=== PATIENT | male | born 1950 | race Hispanic/Latino ===

== ENCOUNTER 2019-09-01 17:52 | Inpatient (IN) | payer MEDICARE, OTHER ==
[2019-09-01 18:34] LABS: Absolute Lymphocytes (CBC) 1.2 K/uL (0.7-4.9); Basophils % 0.9 % (0-1.3); Hematocrit 43.9 % (39.6-49.0); Lymphocytes % 20.9 % (15.3-44.8); MPV 10.3 fL (7.6-11.3); RBC Red Blood Cell Count 4.93 M/uL (4.33-5.43)
[2019-09-01 18:39] LABS: Protime INR 1.21
[2019-09-01 18:51] LABS: ALT/SGPT 42 U/L (12-78); AST/SGOT 29 U/L (15-37); Albumin 3.7 g/dL (3.4-5.0); Alkaline Phosphatase 108 U/L (45-117); BUN Blood Urea Nitrogen 23 mg/dL (7-18); Bicarbonate 26 mmol/L (21-32); Bilirubin Direct 0.4 mg/dL (0-0.2); Bilirubin Total 1.2 mg/dL (0.2-1.0); Glucose Level 151 mg/dL (74-106); Magnesium 2.2 mg/dL (1.8-2.4); NT PRO-BNP 6354 pg/mL (<125); Potassium 3.9 mmol/L (3.5-5.1); Protein, Total 7.2 g/dL (6.4-8.2); Sodium Level 141 mmol/L (136-145); Troponin (Emerg Dept Use Only) < 0.02 ng/mL (0.0-0.045)
--- NOTE | 2019-09-01 20:00 | RAD REPORT ---
EXAM DESCRIPTION: RAD - Chest Single View - 09/01/2019 6:36 pm CLINICAL HISTORY: Shortness of breath COMPARISON: None. TECHNIQUE: AP portable chest image was obtained 1826 hours . FINDINGS: No peripheral mass or consolidation. Cardiomegaly is present with vascular engorgement and prominent interstitial pattern. No measurable pleural effusion and no pneumothorax. No acute bony ab normality seen. No acute aortic findings suspected. IMPRESSION: Mild to moderate CHF/ volume overload pattern.
--- NOTE | 2019-09-01 20:08 | ER ---
Nurse's Notes [facility] Name: Easton Kelly Age: 68 yrs Sex: Male : 1950 Arrival Date: 09/01/2019 Time: 17:57 Bed 14 Private MD: Diagnosis: Unspecified combined systolic (congestive) and diastolic (congestive) heart failure Presentation: 09/01 18:03 Presenting complaint: Patient states: SOB x 1 year but got worse last night and started sv having chest pain, has been seeing his PCP but is getting no answers. Denies cough. Transition of care: patient was not received from another setting of care. Onset of symptoms was August 31, 2019. Risk Assessment: Do you want to hurt yourself or someone else? Patient reports no desire to harm self or others. Initial Sepsis Screen: Does the patient meet any 2 criteria? RR > 20 per min. No. Patient's initial sepsis screen is negative. Does the patient have a suspected source of infection? No. Patient's initial sepsis screen is negative. Care prior to arrival: None. 18:03 Method Of Arrival: Ambulatory sv 18:03 Acuity: NENA 2 sv Historical: - Allergies: 18:05 No Known Allergies; sv - PMHx: 18:05 Hypertension; sv - PSHx: 18:05 None; sv - Immunization history:: Flu vaccine is not up to date. - Social history:: Smoking status: Patient/guardian denies using tobacco. - Ebola Screening: : No symptoms or risks identified at this time. Screenin:30 Abuse screen: Denies threats or abuse. Denies injuries from another. Nutritional ca1 screening: No deficits noted. Tuberculosis screening: No symptoms or risk factors identified. Fall Risk IV access (20 points). Assessment: 18:30 General: Appears in no apparent distress. comfortable, Behavior is calm, cooperative, ca1 appropriate for age. Pain: Denies pain. Neuro: Level of Consciousness is awake, alert, obeys commands, Oriented to person, place, time, situation. Cardiovascular: Heart tones S1 S2 present Capillary refill < 3 seconds Patient's skin is warm and dry. Rhythm is sinus rhythm. Respiratory: Reports shortness of breath for a year now but has gotten worse last night Airway is patent Respiratory effort is even, unlabored, Respiratory pattern is regular, symmetrical, Breath sounds are clear bilaterally. GI: Abdomen is round non-distended, Bowel sounds present X 4 quads. Abd is soft and non tender X 4 quads. : No deficits noted. No signs and/or symptoms were reported regarding the genitourinary system. EENT: No deficits noted. No signs and/or symptoms were reported regarding the EENT system. Derm: Skin is intact, is healthy with good turgor, Skin is. Musculoskeletal: Circulation, motion, and sensation intact. Capillary refill < 3 seconds, Range of motion: intact in all extremities. 19:08 Reassessment: Patient appears in no apparent distress at this time. Patient and/or jb4 family updated on plan of care and expected duration. Pain level reassessed. Patient is alert, oriented x 3, equal unlabored respirations, skin warm/dry/pink. PT reports slight swelling to the left foot. Left foot does appear slightly larger than th right. Denies pain in the left foot. Pedal pulses 2+ bilaterally. Denies SOB currently and reports feeling better. 20:03 Reassessment: Patient appears in no apparent distress at this time. Patient and/or jb4 family updated on plan of care and expected duration. Pain level reassessed. PT appears to be having SOB, wheezing noted IMANI posterior lung heller and right anterior lung heller. PT ambulated to the restroom. Verbalized SOB and has labored breathing upon ambulation. Provider notified and is at the bedside explaining plan of care to the patient. See MAR for orders. 20:46 Reassessment: Patient appears in no apparent distress at this time. Patient and/or jb4 family updated on plan of care and expected duration. Pain level reassessed. Patient is alert, oriented x 3, equal unlabored respirations, skin warm/dry/pink. 21:15 Reassessment: Patient appears in no apparent distress at this time. Patient and/or jb4 family updated on plan of care and expected duration. Pain level reassessed. Patient is alert, oriented x 3, equal unlabored respirations, skin warm/dry/pink. Patient states feeling better. Vital Signs: 18:05 BP 180 / 120; Pulse 85; Resp 24; Temp 98.1; Pulse Ox 100% ; Weight 80.74 kg; Height 5 sv ft. 4 in. (162.56 cm); Pain 0/10; 19:15 BP 134 / 104; Pulse 69; Resp 24; Pulse Ox 95% on R/A; jb4 20:30 BP 175 / 108; Pulse 72; Resp 24; Pulse Ox 99% on Nebulizer Mask; jb4 21:00 BP 165 / 120; Pulse 86; Resp 16; Pulse Ox 98% on R/A; jb4 21:30 BP 155 / 104; Pulse 76; Resp 24; Pulse Ox 97% on R/A; jb4 18:05 Body Mass Index 30.55 (80.74 kg, 162.56 cm) sv ED Course: 17:57 Patient arrived in ED. mr 18:01 Amanda Alves, RN is Primary Nurse. ca1 18:02 Marlon Lees MD is Attending Physician. kdr 18:04 Triage completed. sv 18:05 Arm band placed on. sv 18:27 Initial lab(s) drawn, by me, sent to lab. EKG done, by ED staff, reviewed by Marlon [facility] Nabeel CISNEROS. Inserted saline lock: 20 gauge in right antecubital area, using aseptic technique. Blood collected. 18:28 Patient has correct armband on for positive identification. Placed in gown. Bed in low mh5 position. Call light in reach. Side rails up X 1. Warm blanket given. quality assurance monitor body on. Pulse ox on. NIBP on. 18:36 XRAY Chest (1 view) In Process Unspecified. EDMS 19:07 Mehran Sawyer, RN is Primary Nurse. jb4 20:06 Sharon Lr MD is Hospitalizing Provider. tw4 21:20 No provider procedures requiring assistance completed. Patient admitted, IV remains in jb4 place. Administered Medications: 20:20 Drug: Lasix 40 mg Route: IVP; Site: right antecubital; jb4 21:16 Follow up: Response: No adverse reaction jb4 20:24 Drug: Nitro-Bid Ointment 2 % 0.5 inches Route: Transdermal; Site: anterior chest wall; jb4 21:16 Follow up: Response: No adverse reaction; Blood pressure is lowered jb4 20:24 Drug: DuoNeb (3:1) (2.5 mg - 0.5 mg) 3 ml Route: Nebulizer; jb4 21:00 Follow up: Response: No adverse reaction; Wheezing diminished jb4 Outcome: 20:07 Decision to Hospitalize by Provider. tw4 21:35 Admitted to Med/surg accompanied by tech, via wheelchair, room 214, with chart, Report jb4 called to REVA Lopez 21:35 Condition: stable 21:35 Discharge instructions given to patient, Instructed on the need for admit, Demonstrated understanding of instructions. 21:57 Patient left the ED. jb4 Signatures: Dispatcher [employer] Tiffnay Samuel RN RN sv Rittger, Kevin, MD MD [facility] Elva Phelps James, RN RN jb4 Martinez, Maria mh5 Wadley, Terrence, MD MD twAmanda Santana RN RN ca1 Corrections: (The following items were deleted from the chart) 18:05 18:03 Initial Sepsis Screen: Does the patient meet any 2 criteria? No. Patient's sv initial sepsis screen is negative. Does the patient have a suspected source of infection? No. Patient's initial sepsis screen is negative. sv
--- NOTE | 2019-09-01 20:09 | EDPHYS ---
Physician Documentation [facility] Name: Easton Kelly Age: 68 yrs Sex: Male : 1950 Arrival Date: 09/01/2019 Time: 17:57 Bed 14 Private MD: ED Physician Marlon Lees HPI: 09/01 18:33 This 68 yrs old Male presents to ER via Ambulatory with complaints of kdr Shortness Of Breath. 18:33 The patient has shortness of breath at rest, with light activity. Onset: The kdr symptoms/episode began/occurred yesterday. Duration: The symptoms are intermittent, Worse with exertion. The patient's shortness of breath is aggravated by exertion, light activity, walking, is alleviated by nothing. Associated signs and symptoms: Pertinent positives:. Severity of symptoms: At their worst the symptoms were mild in the emergency department the symptoms are unchanged. The patient has experienced similar episodes in the past, a few times. The patient has been recently seen by a physician: the patient's primary care provider, Has not been evaluated fully for this problem though he had discussed it with his PCP. Historical: - Allergies: 18:05 No Known Allergies; sv - PMHx: 18:05 Hypertension; sv - PSHx: 18:05 None; sv - Immunization history:: Flu vaccine is not up to date. - Social history:: Smoking status: Patient/guardian denies using tobacco. - Ebola Screening: : No symptoms or risks identified at this time. ROS: 18:33 Constitutional: Negative for fever, chills, and weight loss, Eyes: Negative for injury, kdr pain, redness, and discharge, Neck: Negative for injury, pain, and swelling, Cardiovascular: Negative for chest pain, palpitations, and edema, Abdomen/GI: Negative for abdominal pain, nausea, vomiting, diarrhea, and constipation, Back: Negative for injury and pain, : Negative for injury, bleeding, discharge, and swelling, Skin: Negative for injury, rash, and discoloration, Neuro: Negative for headache, weakness, numbness, tingling, and seizure activity. Psych: Negative for depression, anxiety, suicide ideation, homicidal ideation, and hallucinations, Allergy/Immunology: Negative for hives, rash, and allergies, Endocrine: Negative for neck swelling, polydipsia, polyuria, polyphagia, and marked weight changes, Hematologic/Lymphatic: Negative for swollen nodes, abnormal bleeding, and unusual bruising. 18:33 Respiratory: Positive for dyspnea on exertion, shortness of breath, Negative for cough, hemoptysis, orthopnea, pleurisy, sputum production, wheezing. Exam: 18:33 Constitutional: This is a well developed, well nourished patient who is awake, alert, kdr and in no acute distress. Head/Face: Normocephalic, atraumatic. Eyes: Pupils equal round and reactive to light, extra-ocular motions intact. Lids and lashes normal. Conjunctiva and sclera are non-icteric and not injected. Cornea within normal limits. Periorbital areas with no swelling, redness, or edema. Neck: Trachea midline, no thyromegaly or masses palpated, and no cervical lymphadenopathy. Supple, full range of motion without nuchal rigidity, or vertebral point tenderness. No Meningismus. Chest/axilla: Normal chest wall appearance and motion. Nontender with no deformity. No lesions are appreciated. Cardiovascular: Regular rate and rhythm with a normal S1 and S2. No gallops, murmurs, or rubs. Normal PMI, no JVD. No pulse deficits. Respiratory: Lungs have equal breath sounds bilaterally, clear to auscultation and percussion. No rales, rhonchi or wheezes noted. No increased work of breathing, no retractions or nasal flaring. Abdomen/GI: Soft, non-tender, with normal bowel sounds. No distension or tympany. No guarding or rebound. No evidence of tenderness throughout. Back: No spinal tenderness. No costovertebral tenderness. Full range of motion. Skin: Warm, dry with normal turgor. Normal color with no rashes, no lesions, and no evidence of cellulitis. Neuro: Awake and alert, GCS 15, oriented to person, place, time, and situation. Cranial nerves II-XII grossly intact. Motor strength 5/5 in all extremities. Sensory grossly intact. Cerebellar exam normal. Normal gait. Psych: Awake, alert, with orientation to person, place and time. Behavior, mood, and affect are within normal limits. 18:33 Musculoskeletal/extremity: 1+ edema to left leg. Vital Signs: 18:05 BP 180 / 120; Pulse 85; Resp 24; Temp 98.1; Pulse Ox 100% ; Weight 80.74 kg; Height 5 sv ft. 4 in. (162.56 cm); Pain 0/10; 19:15 BP 134 / 104; Pulse 69; Resp 24; Pulse Ox 95% on R/A; jb4 20:30 BP 175 / 108; Pulse 72; Resp 24; Pulse Ox 99% on Nebulizer Mask; jb4 21:00 BP 165 / 120; Pulse 86; Resp 16; Pulse Ox 98% on R/A; jb4 21:30 BP 155 / 104; Pulse 76; Resp 24; Pulse Ox 97% on R/A; jb4 18:05 Body Mass Index 30.55 (80.74 kg, 162.56 cm) sv MDM: 19:59 Patient medically screened. tw4 20:07 Differential diagnosis: Anemia pneumonia, pulmonary edema, reactive airway disease. tw4 Antibiotic administration: Not indicated. Data reviewed: vital signs, nurses notes. Data interpreted: desk monitor: rhythm is. Test interpretation: by ED physician or midlevel provider: ECG. Counseling: I had a detailed discussion with the patient and/or guardian regarding: the historical points, exam findings, and any diagnostic results supporting the discharge/admit diagnosis, lab results, radiology results. Physician consultation: Sharon Lr MD was contacted at 20:07, regarding admission, to the telemetry unit. patient's condition, and will see patient in inpatient room. 09/01 18:03 Order name: Basic Metabolic Panel; Complete Time: 19:59 kdr 09/01 20:00 Interpretation: Normal except: CL 110; GLUC 151; BUN 23; GFR 58. tw4 09/01 18:03 Order name: CBC with Diff; Complete Time: 19:59 kdr 09/01 20:00 Interpretation: Normal except: PLT 145; RDW 15.6. tw4 09/01 18:03 Order name: LFT's; Complete Time: 19:59 kdr 09/01 20:00 Interpretation: Normal except: BILIT 1.2; BILID 0.4. tw4 09/01 18:03 Order name: Magnesium; Complete Time: 19:59 kdr 09/01 20:00 Interpretation: Within normal limits: MG 2.2. tw4 09/01 18:03 Order name: NT PRO-BNP; Complete Time: 19:59 kdr 09/01 20:00 Interpretation: Normal except: NT PRO-BNP 6354. [email or web address] 09/01 18:03 Order name: PT-INR; Complete Time: 19:59 [facility] 09/01 20:00 Interpretation: Normal except: PT 14.2. [facility] [[email or web address] 09/01 18:03 Order name: Troponin (emerg Dept Use Only); Complete Time: 19:59 [facility] 09/01 20:00 Interpretation: Within normal limits: TROPED < 0.02. [facility] [[email or web address]] 09/01 21:07 Order name: Comprehensive Metabolic Panel [facility] 09/01 21:07 Order name: Comprehensive Metabolic Panel [facility] 09/01 21:07 Order name: Magnesium [facility] 09/01 21:07 Order name: Magnesium [facility] 09/01 21:07 Order name: Phosphorus [facility] 09/01 21:07 Order name: Phosphorus [facility] 09/01 21:07 Order name: NT PRO-BNP [facility] 09/01 18:03 Order name: XRAY Chest (1 view) [facility] 09/01 18:03 Order name: EKG; Complete Time: 18:04 [facility] 09/01 18:03 Order name: Cardiac monitoring; Complete Time: 18:43 [facility] 09/01 18:03 Order name: EKG - Nurse/Tech; Complete Time: 18:43 [facility] 09/01 18:03 Order name: IV Saline Lock; Complete Time: 18:43 [facility] 09/01 18:03 Order name: Labs collected and sent; Complete Time: 18:43 [facility] 09/01 18:03 Order name: O2 Per Protocol; Complete Time: 18:43 [facility] 09/01 18:03 Order name: O2 Sat Monitoring; Complete Time: 18:44 [facility] 09/01 21:07 Order name: NT PRO-BNP [facility] 09/01 21:09 Order name: Echo with Doppler EDMS Administered Medications: 20:20 Drug: Lasix 40 mg Route: IVP; Site: right antecubital; jb4 21:16 Follow up: Response: No adverse reaction jb4 20:24 Drug: Nitro-Bid Ointment 2 % 0.5 inches Route: Transdermal; Site: anterior chest wall; jb4 21:16 Follow up: Response: No adverse reaction; Blood pressure is lowered jb4 20:24 Drug: DuoNeb (3:1) (2.5 mg - 0.5 mg) 3 ml Route: Nebulizer; jb4 21:00 Follow up: Response: No adverse reaction; Wheezing diminished jb4 Disposition: 09/01/19 20:07 Hospitalization ordered by Sharon Lr for Inpatient Admission. Preliminary diagnosis is Unspecified combined systolic (congestive) and diastolic (congestive) heart failure. - Bed requested for Telemetry/MedSurg (Inpatient). - Status is Inpatient Admission. jb4 - Condition is Stable. - Problem is new. - Symptoms have improved. UTI on Admission? No Signatures: Dispatcher [employer] EDTiffany Gonzalez, RN RN Marlon Lees MD MD [facility] Carolina Mayo RN RN tl1 Mehran Sawyer RN RN jb4 Juan López MD MD tw4 Corrections: (The following items were deleted from the chart) 21:15 20:07 Hospitalization Ordered by Sharon Lr MD for Inpatient Admission. Preliminary tl1 diagnosis is Unspecified combined systolic (congestive) and diastolic (congestive) heart failure. Bed requested for Telemetry/MedSurg (Inpatient). Status is Inpatient Admission. Condition is Stable. Problem is new. Symptoms have improved. UTI on Admission? No. tw4 21:57 21:15 09/01/2019 20:07 Hospitalization Ordered by Sharon Lr MD for Inpatient jb4 Admission. Preliminary diagnosis is Unspecified combined systolic (congestive) and diastolic (congestive) heart failure. Bed requested for Telemetry/MedSurg (Inpatient). Status is Inpatient Admission. Condition is Stable. Problem is new. Symptoms have improved. UTI on Admission? No. tl1
[2019-09-01] MEDS ORDERED: NITROGLYCERIN 1 GM PKT TD ONE (20:13)
[2019-09-01] MEDS ORDERED: FUROSEMIDE 40 MG/4 ML VIAL ONE (20:14)
[2019-09-01] MEDS ORDERED: ALBUTEROL 2.5 MG/3 ML NEB SOL ONE (20:14)
[2019-09-01] MEDS ORDERED: IPRATROPIUM BROM 0.5MG/2.5ML ONE (20:14)
[2019-09-01] MEDS ORDERED: ONDANSETRON 4 MG/2 ML VIAL IV PRN (21:03)
[2019-09-01] MEDS ORDERED: ACETAMINOPHEN 500 MG TAB PO PRN (21:03)
[2019-09-01 23:41] LABS: Urine Appearance CLEAR; Urine Bilirubin NEGATIVE (NEG); Urine Blood NEGATIVE (NEG); Urine Color YELLOW; Urine Glucose NEGATIVE (NEG); Urine Protein NEGATIVE (NEG); Urine Specific Gravity <=1.005 (1.005-1.030)
[2019-09-01 23:44] LABS: Urine Microscopic Reflex NO UMIC
[2019-09-01 23:56] VITALS: BMI 30.9
[2019-09-02] MEDS: FUROSEMIDE 40 MG/4 ML VIAL IV SCH ×2 (05:19→08:07)
[2019-09-02 05:56] LABS: Absolute Lymphocytes (CBC) 1.1 K/uL (0.7-4.9); Basophils % 0.8 % (0-1.3); Hematocrit 43.2 % (39.6-49.0); Lymphocytes % 15.9 % (15.3-44.8); MPV 10.6 fL (7.6-11.3); RBC Red Blood Cell Count 4.79 M/uL (4.33-5.43)
[2019-09-02 05:59] LABS: Albumin 3.4 g/dL (3.4-5.0); Bilirubin Total 1.2 mg/dL (0.2-1.0); Magnesium 2.1 mg/dL (1.8-2.4); Phosphorus 3.1 mg/dL (2.5-4.9); Potassium 3.6 mmol/L (3.5-5.1); Protein, Total 6.5 g/dL (6.4-8.2)
--- NOTE | 2019-09-02 07:45 | P.HP ---
Certification for Inpatient Patient admitted to: Inpatient With expected LOS: >2 Midnights Patient will require the following post-hospital care: None Practitioner: I am a practitioner with admitting privileges, knowledge of patient current condition, hospital course, and medical plan of care. Services: Services provided to patient in accordance with Admission requirements found in Title 42 Section 412.3 of the Code of Federal Regulations Patient History Date of Service: 09/01/19 Reason for admission: acute CHF exacerbation History of Present Illness: Patient is a 68-year-old gentleman who came to the hospital with shortness of breath. Patient was having dyspnea on exertion as well as paroxysmal nocturnal dyspnea. In the ER, patient was found to have pulmonary edema and elevated BNP. Patient denies having a history of congestive heart failure. He is aware that over the last year his respiratory status has worsened. He has become more and more short of breath. He came into the ER for further evaluation. It appears he does have congestive heart failure. We will get an echocardiogram to further assess. Allergies No Known Allergies Allergy (Verified 09/01/19 22:11) Home Medications: Aspirin [Adult Low Dose Aspirin EC] 81 mg PO BEDTIME 09/01/19 Doxazosin Mesylate 1 tab PO BID 09/01/19 Glimepiride 1 tab PO BID 09/01/19 Metformin ER [Glucophage ER*] 0.5 tab PO SEECOM 09/01/19 Metoprolol Succinate [Toprol Xl] 1 tab PO DAILY 09/01/19 Omeprazole 1 tab PO DAILY 09/01/19 Telmisartan 1 tab PO BID 09/01/19 - Past Medical/Surgical History Has patient received pneumonia vaccine in the past: No Diabetic: Yes -: NIDDM -: HTN -: Stroke 2000 (left-sided weakness) -: GERD Past Surgical History: Patient denies surgical history - Family History Mother Medical History: Stroke Brothers Medical History: Hypertension - Social History Smoking Status: Never smoker Alcohol use: No CD- Drugs: No Caffeine use: Yes Place of Residence: Home Review of Systems 10-point ROS is otherwise unremarkable Physical Examination - Vital Signs Temperature: 97.6 F Blood Pressure: 139/88 Pulse: 66 Respirations: 18 Pulse Ox (%): 96 - Physical Exam General: Alert, In no apparent distress, Oriented x3 HEENT: Atraumatic, PERRLA, Mucous membr. moist/pink, EOMI, Sclerae nonicteric Neck: Supple, 2+ carotid pulse no bruit, No LAD, Without JVD or thyroid abnormality Respiratory: Diminished, Crackles/rales Cardiovascular: Regular rate/rhythm, Normal S1 S2, No murmurs Gastrointestinal: Normal bowel sounds, Soft and benign, Non-distended, No tenderness Musculoskeletal: No clubbing, No tenderness, Swelling Integumentary: No rashes Neurological: Normal gait, Normal speech, Normal strength at 5/5 x4 extr, Normal tone, Sensation intact, Cranial nerves 3-12 intact, Normal affect Lymphatics: No axilla or inguinal lymphadenopathy - Studies Laboratory Data (last 24 hrs) 09/01/19 18:25: PT 14.2 H, INR 1.21 09/01/19 18:25: WBC 5.8, Hgb 15.0, Hct 43.9, Plt Count 145 L 09/01/19 18:25: Sodium 141, Potassium 3.9, BUN 23 H, Creatinine 1.24, Glucose 151 H, Magnesium 2.2, Total Bilirubin 1.2 H, AST 29, ALT 42, Alkaline Phosphatase 108 Assessment & Plan - Problems (Diagnosis) (1) New onset of congestive heart failure Current Visit: Yes Status: Acute (2) History of hypertension Current Visit: Yes Status: Acute (3) History of type 2 diabetes mellitus Current Visit: Yes Status: Acute (4) PND (paroxysmal nocturnal dyspnea) Current Visit: Yes Status: Acute (5) Dyspnea on exertion Current Visit: Yes Status: Acute - Plan 1. Echocardiogram 2. We will start patient on low-dose Cozaar 3. We will start patient on a Beta sergio 4. Cardiology consultation 5. Aggressive diuresis 6. Strict I's and O's 7. Repeat CXR 8. Daily weights 9. Education regarding diet and treatment of congestive heart failure Discharge Plan: Home Plan to discharge in: Greater than 2 days - Advance Directives Does patient have a Living Will: No Does patient have a Durable POA for Healthcare: No - Code Status/Comfort Care Code Status Assessed: Yes Code Status: Full Code Critical Care: No Time Spent Managing PTS Care (In Minutes): 45
[2019-09-02] MEDS: POTASSIUM 25 MEQ EFFERV TAB PO SCH ×2 (08:07→20:58)
[2019-09-02] MEDS ORDERED: ENOXAPARIN 40 MG/0.4 ML SQ SCH (09:00)
--- NOTE | 2019-09-02 09:35 | EKG ---
Test Date: 2019-09-01 Test Time: 18:13:33 Dog Bather: KARON MEASUREMENT RESULTS: Intervals: Rate: 78 WA: 150 QRSD: 108 QT: 412 QTc: 469 [place]: P: 49 WA: 150 QRS: 107 T: -72 INTERPRETIVE STATEMENTS: Sinus rhythm with premature ventricular complexes Rightward axis Possible Inferior infarct, age undetermined ST & T wave abnormality, consider lateral ischemia Abnormal ECG Compared to ECG 06/18/2003 13:01:00 Ventricular premature complex(es) now present Right-axis deviation now present Sinus arrhythmia no longer present Myocardial infarct finding still present Electronically Signed On 09-02-19 09:34:52 DEBIT AGENT by Sunil Pearl
[2019-09-02] MEDS: VALSARTAN 80 MG TAB PO SCH ×2 (09:42→20:58)
[2019-09-02] MEDS: METOPROLOL XL 100 MG TAB PO SCH (09:43)
[2019-09-02] MEDS: DOXAZOSIN 2 MG TAB PO SCH ×2 (09:43→20:58)
[2019-09-02] MEDS: PANTOPRAZOLE 40MG TABLET PO SCH (09:43)
[2019-09-02] MEDS ORDERED: REGADENOSON 0.4 MG/5 ML SYR IV ONE (10:03)
--- NOTE | 2019-09-02 10:24 | ECHO ---
HEIGHT: 5 ft 4 in WEIGHT: 180 lb 9.6 oz DATE OF STUDY: 09/02/[address]: Sharon Lr MD 2-DIMENSIONAL: YES M.MODE: YES DOPPLER: YES COLOR FLOW: YES TDS: NO PORTABLE: NO DEFINITY: NO BUBBLE STUDY: NO DIAGNOSIS: CONGESTIVE HEART FAILURE CARDIAC HISTORY: CATHERIZATION: NO SURGERY: NO PROSTHETIC VALVE: NO PACEMAKER: NO MEASUREMENTS (cm) DIASTOLIC (NORMALS) SYSTOLIC (NORMALS) IVSd 0.9 (0.6-1.2) LA Diam 3.8 (1.9-4.0) LVEF 35-39% LVIDd 6.1 (3.5-5.7) LVIDs 4.8 (2.0-3.5) %FS 22% LVPWd 1.1 (0.6-1.2) Ao Diam 2.9 (2.0-3.7) 2 DIMENSIONAL ASSESSMENT: RIGHT ATRIUM: NORMAL LEFT ATRIUM: NORMAL RIGHT VENTRICLE: NORMAL LEFT VENTRICLE: NORMAL TRICUSPID VALVE: NORMAL MITRAL VALVE: NORMAL PULMONIC VALVE: NORMAL AORTIC VALVE: NORMAL PERICARDIAL EFFUSION: NONE AORTIC ROOT: NORMAL LEFT VENTRICULAR WALL MOTION: GLOBAL HYPOKINESIS. DOPPLER/COLOR FLOW: TRACE OF AORTIC REGURGITATION. MILD TRICUSPID REGURGITATION. ESTIMATED RIGHT VENTRICULAR SYSTOLIC PRESSURE 36mmHg (MILD PULMONARY HYPERTENSION). COMMENTS: DEPRESSED LEFT VENTRICULAR EJECTION FRACTION. TRACE OF AORTIC REGURGITATION. MILD TRICUSPID REGURGITATION. MILD PULMONARY HYPERTENSION. TECHNOLOGIST: YAIMNI FERNANDEZ
--- NOTE | 2019-09-02 12:12 | CON ---
History Of Present Illness: Mr. Kelly is 68. He came to the hospital because of dyspnea. He shireen me extremely excited and came to the emergency room. He has received diuretics and feels much better . Chest x-ray revealed evidence of volume overload with pulmonary edema pattern. Mr. Kelly has no t had any trouble with his heart before. He has borderline glucose tolerance and takes glimepiride. He is hypertensive and takes telmisartan, doxazosin, and metoprolol. He also takes 250 mg of metfor min. He takes aspirin and omeprazole. He has no allergies. Uses no tobacco. Never had myocardial infarction. He did have a stroke 20 years ago and no vascular interventions were done. Physical Examination: General: He is 5 feet 4 inches, 180 pounds, obese, alert, oriented, pleasant, cooperative, not in di stress. Lungs: Clear. Cardiac: Exam within normal limits. Neck: Carotids, no bruit. Extremities: Palpable pulses. No cyanosis, clubbing, or edema. His electrocardiogram shows sinus rhythm with PVCs, rightward axis, possible old inferior infarct, no nspecific ST and T-wave abnormality. Impression: The patient probably has coronary artery disease, previously undiagnosed. I think he ma y be having congestive heart failure symptoms from coronary artery disease . An echo has been done, but I think a pharmacologic nuclear stress test was also in order. His cardiac enzymes are normal. I think our patient here has coronary artery disease and wit h symptoms. MARCY/SIOBHAN Voice ID: [id number] Report ID: [id number]
--- NOTE | 2019-09-02 13:19 | RAD REPORT ---
EXAM DESCRIPTION: NM - Rest Stress Cardiac Imaging - 09/02/2019 1:06 pm CLINICAL HISTORY: Chest pain COMPARISON: None. TECHNIQUE: The patient was administered approximately 10 mCi of Tc 99m Sestamibi prior to resting SP ECT imaging of the heart. The patient was then administered approximately 30 mCi of Tc 99m Sestamibi following exercise or pharmacologic stress. Multiplanar SPECT images were reviewed. FINDINGS: The end diastolic volume is 242 ml, the end systolic volume is 177 ml, and the ejection fr action is 27 %. Stress imaging shows diminished activity in the muscular septum. This is not present on the rest sequ encing. Patient has a moderate-sized area of significantly diminished activity along the anterior wal l extending into the apex. This does not change between rest and stress imaging. There is a very larg e area of near complete loss of activity in the inferior wall from base to apex. This does not change between rest and stress imaging. This extends partly into the lateral wall. IMPRESSION: Stress ischemia seen in the muscular septum. Large areas of diminished activity believed to be all infarction involving the inferior wall, apex an d anterior wall near the apex. Dilated ventricular volume of 242 milliliters with poor 27% ejection fraction.
[2019-09-02] MEDS: GLIMEPIRIDE 2 MG TABLET PO SCH (16:55)
--- NOTE | 2019-09-02 19:52 | PN ---
Date of Progress Note: 09/02/2019 Subjective: Patient seen and examined. Chart reviewed and case discussed with RN. Patient overall does not complain of any pain, shortness of breath has improved. Not on any oxygen. Went for stress test this morning, which was abnormal. Patient was updated on the test results. Medications: List reviewed. Code status: Full Physical Examination: Vital Signs: Temperature 97.3, heart rate 61, blood pressure 140/85, respirations 18, O2 97% on room air. General: Awake, alert, oriented x3, not in any acute distress. Elderly male, obese. CV: S1, S2. Regular rate and rhythm. Peripheral pulses present. Respiratory: Diminished breath sounds, some crackles. No wheezing or stridor. No use of accessory muscles. Gastrointestinal: Abdomen is soft, nontender, nondistended. Positive bowel sounds. No guarding or rigidity. Extremities: No clubbing, cyanosis. Patient has trace pedal edema. Neurological: Cranial nerves 2 through 12 intact grossly. No focal neurological deficit. Speech is normal. Laboratory Data: Sodium 144, potassium 3.6, chloride 111, CO2 of 26, BUN 21, creatinine 1.14, glucose 96, calcium 8.2, phosphorus 3.1, magnesium 2.1, total bilirubin 1.2. BNP 8070. Troponin less than 0.02 x2. WBC 7, H and H 14.4 and 43.2, platelets 148. Echocardiogram shows EF of 35% to 39%, depressed left ventricular ejection fraction, trace severe aortic regurg, mild tricuspid regurg , mild pulmonary hypertension. Cardiac stress test shows stress ischemia seen in the muscular septum, large areas of diminished activity believed to be all infarction involving the inferior wall apex and anterior wall near the apex. Assessment: A 68-year-old male with. 1. Acute congestive heart failure systolic dysfunction. Patient has depressed ejection fraction of 35% to 39% with mild pulmonary hypertension. We will continue with congestive heart failure guidelines, continue diuretics, monitor I's and O's, daily weights, fluid restriction. Appreciate Cardiology input. 2. Acute coronary syndrome. Patient has abnormal cardiac stress test with diffuse ischemia, will likely need cardiac catheterization. We will discuss further with Cardiology. We will start on chest pain guidelines. 3. Essential hypertension, stable. We will continue home medications. 4. Diabetes mellitus type 2, non-insulin requiring. We will continue with sliding scale insulin. Monitor blood glucose levels. 5. Dyspnea upon exertion, likely secondary to congestive heart failure. 6. Paroxysmal nocturnal dyspnea. Plan: Resume home medications as appropriate. Discuss further with Cardiology. Patient will likely need cardiac catheterization. MACEY Voice ID: [id number] Report ID: [id number] MTDDavid
[2019-09-02] MEDS ORDERED: ASPIRIN EC 81 MG TAB PO SCH (21:00)
[2019-09-03 05:54] LABS: Potassium 3.6 mmol/L (3.5-5.1)
[2019-09-03] MEDS: GLIMEPIRIDE 2 MG TABLET PO SCH ×2 (08:00→16:17)
[2019-09-03] MEDS: DOXAZOSIN 2 MG TAB PO SCH (08:47)
[2019-09-03] MEDS: POTASSIUM 25 MEQ EFFERV TAB PO SCH ×2 (08:47→13:04)
[2019-09-03] MEDS: VALSARTAN 80 MG TAB PO SCH (08:47)
[2019-09-03] MEDS: PANTOPRAZOLE 40MG TABLET PO SCH (08:47)
[2019-09-03] MEDS: METOPROLOL XL 100 MG TAB PO SCH (08:48)
[2019-09-03] MEDS ORDERED: FUROSEMIDE 40 MG TABLET PO SCH (09:00)
[2019-09-03] MEDS ORDERED: ATROPINE SULF 1 MG/10 ML SYR IV ONE (09:46)
[2019-09-03] MEDS ORDERED: FENTANYL CITR 100 MCG/2 ML ONE (09:46)
[2019-09-03] MEDS ORDERED: HEPA 1000U/500MLS 1,000 UNIT/500 ML BAG IV ONE (09:46)
[2019-09-03] MEDS ORDERED: MIDAZOLAM HCL 2 MG/2 ML INJ ONE ×2 (09:46→10:13)
[2019-09-03] MEDS ORDERED: NA CHLORIDE 0.9% 0 ML ONE (09:47)
[2019-09-03] MEDS ORDERED: NA CHLORIDE 0.9% 500 ML ONE (10:04)
[2019-09-03 12:58] VITALS: TEMP 97.1
[2019-09-03 16:57] VITALS: BP 142/86
[2019-09-03 17:51] VITALS: O2SAT 93
--- NOTE | 2019-09-03 20:41 | OP ---
Surgeon: Brennan Krishnamurthy MD The patient was admitted to Dr. Balderas on 09/01/2019, with CHF, had a positive stress test consistent with ischemia. He was brought to the laboratory tester today as an inpatient, underwent a left heart catheter ization, selective coronary arteriogram, and LV-gram. Indication: Chest pain, CHF, abnormal stress test. Procedure In Detail: The patient was prepped and draped in the routine sterile fashion. Given Verse d for sedation. Six-Indonesian sheath introduced in the right common femoral artery successfully. StarC lose was used to close the case. Kalyan catheters 6-Indonesian, left and right were used respectively f or the left main and the right main. The patient was found to have 100% occlusion of his RCA with co llaterals from the LAD and the circumflex to it. He had a 90% lesion that is trifurcating in the dis joy left main, LAD, circumflex, and a ramus. Diffuse distal disease, but with no focal stenosis. LV -gram was done. Ejection fraction was 30%, severe global hypokinesis, end-diastolic pressure with 30 mmHg. Complications: None. Blood Loss: 5 mL. Postoperative Diagnosis: Coronary artery disease and congestive heart failure. The patient needs to have coronary artery bypass surgery. The case will be discussed with the family and the patient. I will plan to transfer him to [place] today. His CD will go with him. Continue medical therapy otherwise. KEENA/SIOBHAN Voice ID: [id number] Report ID: [id number]
--- NOTE | 2019-09-03 22:53 | DS ---
Date of Discharge: 09/03/2019 Consultants: Dr. Pearl and Dr. Krishnamurthy with Cardiology. Procedures: On 09/02/2019, cardiac stress test positive for stress-induced ischemia. On 09/03/2019, cardiac catheterization showing 3-vessel disease, need for bypass. Admitting Diagnoses: 1. New-onset congestive heart failure. 2. History of hypertension. 3. Diabetes mellitus type 2. 4. Paroxysmal nocturnal dyspnea. 5. Dyspnea upon exertion. Discharge Diagnoses: 1. Acute congestive heart failure, systolic dysfunction, ejection fraction 35 % to 39%, improved. 2. Acute coronary syndrome, abnormal stress test. Cardiac cath showing multivessel disease. 3. Essential hypertension, stable. 4. Diabetes mellitus type 2 [id number] without any complications, stable. 5. Dyspnea upon exertion secondary to congestive heart failure. 6. Paroxysmal nocturnal dyspnea. Hospital Course: Patient is a 68-year-old male with past medical history of diabetes, hypertension, history of stroke, weakness on the left side, comes in with shortness of breath, dyspnea on exertion, and paroxysmal nocturnal dyspnea. In the ER, he was found to have pulmonary edema, elevated BNP. This was thought to be due to congestive heart failure. He was started on diuretics. His chest x-ray showed [id number] CHF with volume overload pattern. His BNP was elevated. Patient had an echocardiogram done, which showed EF 35% to 39%. Cardiology was consulted. Cardiac stress test was ordered, which showed stress-induced ischemia in the muscular septum, large areas of diminished activity believed to be all the infarction involving the inferior wall, apex, and anterior wall near the apex. Patient was taken for cardiac catheterization and had multivessel disease. Cardiology recommended triple bypass. Patient was therefore referred to [facility] for transfer to tertiary care center for higher level of care for CT surgery and bypass. Patient was then transferred once accepted. Physical Examination: General: Awake, alert, and oriented x3, elderly male. CV: S1, S2. Respiratory: Moving air well bilaterally. Some crackles heard at the bases. Gastrointestinal: Abdomen is soft, nontender, nondistended. Positive bowel sounds. Extremities: No clubbing, cyanosis, or edema. Neurologic: Nonfocal. Total time spent transferring patient was 36 minutes. /SIOBHAN Voice ID: [id number] Report ID: [id number] MTDD
--- NOTE | 2019-09-10 08:02 | TREADPHA ---
DX: CHEST PAIN Date of Study: 09/02/2019 Ht: 5 4 Wt: 172 lb 0 oz Consulting Physician: JAREN MEDICATIONS: TYLENOL, ASPIRIN, LOVENOX, LASIX, AMARYL, TOPROL XL, ZOFRAN, DIOVAN HISTORY: 68 YEAR OLD MALE WITH SHORTNESS OF BREATH. MEDICAL HISTORY OF HYPERTENSION. PHYSICIAL EXAMINATION: RESTING B.P.: 170/113 RESTING H.R.: 74 RESTING EKG: SINUS, PREMATURE VENTRICULAR COMPLEXES, RIGHT AXIS DEVIATION. NON SPECIFIC ST AND T WAVE ABNORMALITY. PROTOCOL: LEXISCAN EXERCISE TIME: 3:30 B.P. AT PEAK STRESS: 142/92 IMPRESSION: LEXISCAN INJECTED. CARDIOLITE INJECTED PER PROTOCOL. SEE NUCLEAR MEDICINE REPORT. NO SUPRAVENTRICULAR TACHYCARDIA. NO VENTRICULAR TACHYCARDIA. MULTIPLE PREMATURE VENTRICULAR COMPLEXES THROUGHOUT TEST. DENIED CHEST PAIN. NON DIAGNOSTIC EKG WITH LEXISCAN STRESS.
== END 2019-09-03 19:15 | disposition short-term general hospital (02) | DRG 286 ==
LOC: ER 17:52 → ERHOLD 21:03 → 2ND 21:39
PROVIDERS: ADMIT Hospitalist; ATTEND Family Medicine
PROC: 4A023N7 Measurement of Cardiac Sampling and Pressure, Left Heart, Percutaneous Approach (ICD-10-PCS; principal; 2019-09-03)
PROC: B215YZZ Fluoroscopy of Left Heart using Other Contrast (ICD-10-PCS; 2019-09-03)
DX: I11.0 Hypertensive heart disease with heart failure (principal); I50.21 Acute systolic (congestive) heart failure; I24.9 Acute ischemic heart disease, unspecified; I69.354 Hemiplegia and hemiparesis following cerebral infarction affecting left non-dominant side; J44.9 Chronic obstructive pulmonary disease, unspecified; I25.10 Atherosclerotic heart disease of native coronary artery without angina pectoris; K21.9 Gastro-esophageal reflux disease without esophagitis; E11.9 Type 2 diabetes mellitus without complications; R06.00 Dyspnea, unspecified
CPT/HCPCS: 36415; 71045; 78452; 80048; 80053; 80076; 81003; 82947; 83735; 83880; 84100; 84484; 85025; 85610; 93005; 93017; 93306; 93458; 94640; 96374; 99285; A9500; C1893; J0583; J1650; J1940; J2250; J2785; J3010; J7040

== ENCOUNTER 2020-06-01 09:25 | Emergency (ER) | payer MEDICARE ==
--- OUTSIDE RECORDS SUMMARY | 2020-06-01 09:39 | XMS REPORT | Clinical Summary ---
:1950 Author Organization [facility] Address [address] [place] [address] Care Team Providers Name Role Phone Pritesh Siddiqui Primary Care Provider Unavailable Allergies No Known Allergies Medications Medication Sig Dispensed Refills Start Date End Date Status metFORMIN Take 425 mg 0 Active (GLUCOPHAGE) 500 MG by mouth 3 tabletIndications: (three) times type 2 diabetes daily before mellitus meals . doxazosin (CARDURA) Take 2 mg by 0 Active 2 MG tablet mouth 2 (two) times daily. telmisartan Take 40 mg by 0 Acti ve (MICARDIS) 40 MG mouth 2 (two) tablet times daily. glimepiride Take 1 tablet 60 tablet 11 09/13/2019 09/12/2020 Ac tive (AMARYL) 2 MG (2 mg total) tablet by mouth 2 (two) times daily. aspirin 81 MG EC Take 1 tablet 30 tablet 11 09/14/2019 09/13/20 20 Active tablet (81 mg total) by mouth daily. atorvastatin Take 1 tablet 30 tablet 11 09/13/2019 09/12/2020 A ctive (LIPITOR) 40 MG (40 mg total) tablet by mouth nightly. clopidogrel Take 1 tablet 30 tablet 11 09/14/2019 09/13/2020 Ac tive (PLAVIX) 75 mg (75 mg total) tablet by mouth daily. colchicine Take 1 tablet 30 tablet 0 09/13/2019 09/12/2020 Act yasmine (COLCRYS) 0.6 mg (0.6 mg tablet total) by mouth daily. metoprolol Take 1 tablet 60 tablet 11 09/13/2019 09/12/2020 Act yasmine (LOPRESSOR) 25 MG (25 mg total) tablet by mouth 2 (two) times daily. tamsulosin (FLOMAX) Take 1 30 capsule 11 09/14/2019 Active 0.4 mg Cap 24 hr capsule (0.4 capsule mg total) by mouth daily. metoprolol Take 100 mg 0 09/13/2019 Discon tinued (TOPROL-XL) 100 MG by mouth 24 hr daily. tabletIndications: high blood pressure glimepiride Take 2 mg by 0 09/13/2019 Disc ontinued (AMARYL) 2 MG mouth 3 tablet (three) times daily before meals. Active Problems Problem Noted Date S/P CABG x 3 09/06/2019 Acute respiratory insufficiency 09/06/2019 On mechanically assisted ventilation 09/06/2019 Cardiogenic shock 09/06/2019 Acute prerenal azotemia 09/06/2019 SIRS (systemic inflammatory response syndrome) 019 Acute on chronic combined systolic and diastolic CHF, NYHA class 4 09/04/2019 Ischemic cardiomyopathy 09/04/2019 Multi-vessel coronary artery stenosis 09/04/2019 Atherosclerosis of koi coronary artery of koi he art with unstable 09/04/2019 angina pectoris DM (diabetes mellitus), type 2, uncontrolled, periph v ascular complic 09/04/2019 Hypertension, essential 09/04/2019 Hypertensive heart disease with acute on chronic combi carloz systolic and 09/04/2019 diastolic congestive heart failure Hyperlipidemia LDL goal <70 09/04/2019 Coronary artery disease 09/03/2019 Encounters Date Type Specialty Care Team Description 09/20/2019 Office Visit Cardiology Bryant, Postoperative s [place] Lucien De Jesus, (Primary Dx) 09/06/2019 Surgery Bryant, BYPASS,[place] [facility] Lucien De Jesus, JASVIR/SVG 09/06/2019 Anesthesia Event Mariya Robles MD 09/03/2019 - Hospital Encounter Cardiology Bennie Riley, Acute on chronic combined systolic and diastolic CHF, NYHA class 4 ([facility]) (Primary Dx); 09/13/2019 Acute prerenal azotemia; Joe Orozco Acute respirato ry insufficiency; MD Jazmyn Atherosclerosis of koi coronary arter y of koi heart with unstable angina pectoris ([facility]); Dameon English Cardiogenic gin ck ([facility]); MD Radha Ischemic cardio myopathy; On mechanically assisted ventilation ([facility]); S/P CABG x 3; SIRS (systemic inflammatory response syndrome) ([facility]) 09/03/2019 Orders Only General Internal Medicine after 06/01/2019 Social History Tobacco Use Types Packs/Day Years Used Date Never Smoker Smokeless Tobacco: Never Used Sex Assigned at Date Recorded Not on file Job Start Date Occupation Industry Not on file Not on file Not on file Travel History Travel Start Travel End No recent travel history available. Last Filed Vital Signs Vital Sign Reading Time Taken Blood Pressure 113/85 09/20/2019 1:40 PM [facility]ENT [facility] Pulse 79 09/20/2019 1:40 PM PARENT TRAINER Temperature 37 C (98.6 F) 09/20/2019 1:40 PM PARENT TRA[employer]ER Respiratory Rate 18 09/20/2019 1:40 PM PARENT TRA[employer]ER Oxygen Saturation 100% 09/20/2019 1:40 PM PARENT TRA[employer]ER Inhaled Oxygen Concentration 40% 09/06/2019 3:57 PM PARENT TRAINER Weight 77.6 kg (171 lb) 09/20/2019 1:40 PM PARENT TRA[employer]ER Height 165.1 cm (5' 5") 09/20/2019 1:40 PM PARENT TRA[employer]ER Body Mass Index 28.46 09/20/2019 1:40 PM PARENT TRAINER Plan of Treatment Health Maintenance Due Date Last Done Comments COLON CANCER SCREENING COLONOSCOPY 1950 DIABETIC EYE EXAM 1960 DIABETIC FOOT EXAM 1960 URINE MICROALBUMIN 1961 PNEUMOCOCCAL 65+ LOW/MEDIUM RISK (1 2016 of 2 - PCV13) HEMOGLOBIN A1C 03/06/2020 09/06/2019, 09/05/2019, 09/04/2019 MEDICARE ANNUAL WELLNESS (YEAR 2 or 03/10/2020 FIRST YEAR if no IPPE) INFLUENZA VACCINE (#1) 2020 Procedures Procedure Name Priority Date/Time Associated Comments Diagnosis REPORT OF PROCEDURE - 09/17/2019 9:20 ENDOSCOPY SCAN AM PARENT TRAINER RHYTHM STRIP - SCAN 09/17/2019 9:20 AM PARENT TRAINER RHYTHM STRIP - SCAN 09/17/2019 9:20 AM PARENT TRAINER PERIPHERAL VASCULAR 09/13/2019 9:20 REPORT - SCAN PM PARENT TRA[employer]ER POCT-GLUCOSE METER Routine 09/13/2019 7:37 Resul ts for this AM PARENT TRA[employer]ER procedure are i n the results section. CBC W/PLT COUNT & AUTO Routine 09/13/2019 4:17 R esults for this DIFFERENTIAL AM PARENT TRAINER procedure are i n the results section. BASIC METABOLIC PANEL Routine 09/13/2019 4:17 Re sults for this (7) AM PAR[facility] TRA[employer]ER procedure are i n the results section. CBC W/PLT COUNT & AUTO Routine 09/13/2019 4:17 R esults for this DIFFERENTIAL AM PAR[facility] TRA[employer]ER procedure are i n the results section. POCT-GLUCOSE METER Routine 09/12/2019 5:24 Resul ts for this PM PARENT TRA[employer]ER procedure are i n the results section. POCT-GLUCOSE METER Routine 09/12/2019 12:42 Resul ts for this PM PAR[employer] TRA[employer]ER procedure are i n the results section. VENOUS DOPPLER LEGS Routine 09/12/2019 9:12 Resu lts for this BILATERAL AM PARENT TRAINER procedure are i n the results section. POCT-GLUCOSE METER Routine 09/12/2019 8:07 Resul ts for this AM PARENT TRA[employer]ER procedure are i n the results section. CBC W/PLT COUNT & AUTO Routine 09/12/2019 4:36 R esults for this DIFFERENTIAL AM PARENT TRAINER procedure are i n the results section. BASIC METABOLIC PANEL Routine 09/12/2019 4:36 Re sults for this (7) AM PAR[facility] TRA[employer]ER procedure are i n the results section. CBC W/PLT COUNT & AUTO Routine 09/12/2019 4:36 R esults for this DIFFERENTIAL AM PARENT TRAINER procedure are i n the results section. POCT-GLUCOSE METER Routine 09/11/2019 9:29 Resul ts for this PM PARENT TRA[employer]ER procedure are i n the results section. ECHOCARDIOGRAM REPORT - 09/11/2019 9:10 SCAN PM PARENT TRAINER POCT-GLUCOSE METER Routine 09/11/2019 5:36 Resul ts for this PM [facility] TRA[employer]ER procedure are i n the results section. POCT-GLUCOSE METER Routine 09/11/2019 2:02 Resul ts for this PM PARENT TRA[employer]ER procedure are i n the results section. POCT-GLUCOSE METER Routine 09/11/2019 8:25 Resul ts for this AM PARENT TRAINER procedure are i n the results section. POCT-GLUCOSE METER Routine 09/10/2019 9:27 Resul ts for this PM [facility] TRA[employer]ER procedure are i n the results section. POCT-GLUCOSE METER Routine 09/10/2019 3:35 Resul ts for this PM PAR[facility] TRA[employer]ER procedure are i n the results section. 2D ECHO W/ DOPPLER MASSIMO 09/10/2019 2:46 Resul ts for this (CW/PW/COLOR) PM PARENT TRA[employer]ER procedure are in the results section. POCT-GLUCOSE METER Routine 09/10/2019 12:13 Resul ts for this PM PAR[facility] TRA[employer]ER procedure are i n the results section. MAGNESIUM STAT 09/10/2019 9:59 Results for this AM PARENT TRA[employer]ER procedure are i n the results section. BASIC METABOLIC PANEL STAT 09/10/2019 9:59 Re sults for this (7) AM PARENT TRA[employer]ER procedure are i n the results section. CBC (HEMOGRAM ONLY) STAT 09/10/2019 9:59 Resu lts for this AM PAR[facility] TRA[employer]ER procedure are i n the results section. POCT-GLUCOSE METER Routine 09/10/2019 7:57 Resul ts for this AM PAR[facility] TRA[employer]ER procedure are i n the results section. POCT-GLUCOSE METER Routine 09/09/2019 9:34 Resul ts for this PM PARENT TRAINER procedure are i n the results section. POCT-GLUCOSE METER Routine 09/09/2019 7:38 Resul ts for this PM PARENT TRAINER procedure are i n the results section. POCT-GLUCOSE METER Routine 09/09/2019 3:50 Resul ts for this PM PARENT TRAINER procedure are i n the results section. POCT-GLUCOSE METER Routine 09/09/2019 12:20 Resul ts for this PM PARENT TRA[employer]ER procedure are i n the results section. ECG 12-LEAD Routine 09/09/2019 11:35 AM PARENT TRAINER Procedure Note - Interface, External Ris In - 09/09/2019 11:46 AM PARENT TRAINER Ventricular Rate 93 BPM Atrial Rate 300 BPM QRS Duration 108 ms Q-T Interval 386 ms QTC Calculation(Bazett) 479 ms R Edna 36 degrees T Edna 235 degrees Atrial flutter with variable A-V block with premature ventricular or aberrantly conducted complexes Inferior infarct (cited on o r before 03-SEP-2019) Anterolateral infarct , poss ibly acute ACUTE DC / STEMI Abnormal ECG When compared with ECG of 06:47, Significant changes have occ urred ECG 12-LEAD Routine 09/09/2019 11:35 AM PARENT TRAINER Resu lts for this procedure are in the results section. POCT-GLUCOSE METER Routine 09/09/2019 7:52 AM PARENT TRAINER ECG 12-LEAD Routine 09/09/2019 6:47 AM PARENT TRAINER Procedure Note - Interface, External Ris In - 09/09/2019 11:46 AM PARENT TRAINER Ventricular Rate 81 BPM Atrial Rate 81 BPM P-R Interval 136 ms QRS Duration 104 ms Q-T Interval 384 ms QTC Calculation(Bazett) 446 ms P Edna 31 degrees R Edna 61 degrees T Edna -88 degrees Normal sinus rhythm Inferior infarct (cited on o r before 03-SEP-2019) T wave abnormality, consider anterolateral ischemia Abnormal ECG When compared with ECG of 05:47, Significant changes have occ urred ECG 12-LEAD Routine 09/09/2019 6:47 AM Results for this PARENT TRA[employer]ER procedure are i n the results section. CBC W/PLT COUNT & AUTO Routine 09/09/2019 6:06 AM Results for this DIFFERENTIAL PAR[employer] TRA[employer]ER procedure are i n the results section. CALCIUM, IONIZED Routine 09/09/2019 6:06 AM Resu lts for this PARENT TRAINER procedure are i n the results section. CBC W/PLT COUNT & AUTO Routine 09/09/2019 6:06 AM Results for this DIFFERENTIAL PARENT TRA[employer]ER procedure are i n the results section. BASIC METABOLIC PANEL Routine 09/09/2019 6:06 AM Results for this (7) PAR[facility] [employer]ER procedure are i n the results section. XR CHEST 1 VIEW Routine 09/09/2019 5:50 AM Resul ts for this PORTABLE/BEDSIDE PARENT TRA[facility]ER procedure a re in the results section. POCT-GLUCOSE METER Routine 09/08/2019 9:34 PM Re sults for this PARENT TRAINER procedure are i n the results section. POCT-GLUCOSE METER Routine 09/08/2019 5:17 PM Re sults for this PARENT TRAINER procedure are i n the results section. POCT-GLUCOSE METER Routine 09/08/2019 1:16 PM Re sults for this PARENT TRAINER procedure are i n the results section. POCT-GLUCOSE METER Routine 09/08/2019 8:02 AM Re sults for this PARENT TRA[employer]ER procedure are i n the results section. XR CHEST 1 VIEW Routine 09/08/2019 7:22 AM Resul ts for this PORTABLE/BEDSIDE PARENT TRA[employer]ER procedure a re in the results section. ECG 12-LEAD Routine 09/08/2019 5:47 AM Results for this PAR[facility] TRA[employer]ER procedure are i n the results section. CBC W/PLT COUNT & AUTO Routine 09/08/2019 5:46 AM Results for this DIFFERENTIAL [facility]ER procedure are i n the results section. CALCIUM, IONIZED Routine 09/08/2019 5:46 AM Resu lts for this PARENT TRA[employer]ER procedure are i n the results section. CBC W/PLT COUNT & AUTO Routine 09/08/2019 5:46 AM Results for this DIFFERENTIAL [facility]ER procedure are i n the results section. BASIC METABOLIC PANEL Routine 09/08/2019 5:46 AM Results for this (7) PAR[employer]ER procedure are i n the results section. PHOSPHORUS Routine 09/08/2019 5:46 AM Results for this PAR[facility] TRA[employer]ER procedure are i n the results section. MAGNESIUM Routine 09/08/2019 5:46 AM Results for this PAR[facility] TRA[employer]ER procedure are i n the results section. POCT-GLUCOSE METER Routine 09/08/2019 12:01 AM Re sults for this PARENT TRA[employer]ER procedure are i n the results section. TRANSFUSION SERVICE 09/07/2019 5:51 PM REPORT - SCAN PARENT TRAINER PHOSPHORUS STAT 09/07/2019 11:30 AM Results for this PARENT TRA[employer]ER procedure are i n the results section. MAGNESIUM Routine 09/07/2019 11:30 AM Results for this PAR[facility] TRA[employer]ER procedure are i n the results section. BASIC METABOLIC PANEL Routine 09/07/2019 11:30 AM Results for this (7) PAR[facility] TRA[employer]ER procedure are i n the results section. ECG 12-LEAD Routine 09/07/2019 7:47 AM Results for this PAR[employer] TRA[employer]ER procedure are i n the results section. POCT-GLUCOSE METER Routine 09/07/2019 7:22 AM Re sults for this PAR[employer] TRA[employer]ER procedure are i n the results section. CBC W/PLT COUNT & AUTO Routine 09/07/2019 3:34 AM Results for this DIFFERENTIAL [facility]ER procedure are i n the results section. LACTIC ACID, ARTERIAL Routine 09/07/2019 3:34 AM Results for this [facility] TRA[employer]ER procedure are i n the results section. OXYGEN SATURATION, Routine 09/07/2019 3:34 AM Re sults for this MEASURED PARENT TRA[employer]ER procedure are i n the results section. CALCIUM, IONIZED Routine 09/07/2019 3:34 AM Resu lts for this PAR[employer] TRA[employer]ER procedure are i n the results section. BLOOD GAS, ARTERIAL Routine 09/07/2019 3:34 AM R esults for this PAR[facility] TRA[employer]ER procedure are i n the results section. CBC W/PLT COUNT & AUTO Routine 09/07/2019 3:34 AM Results for this DIFFERENTIAL PAR[employer] TRA[employer]ER procedure are i n the results section. BASIC METABOLIC PANEL Routine 09/07/2019 3:34 AM Results for this (7) PARENT TRA[employer]ER procedure are i n the results section. PHOSPHORUS Routine 09/07/2019 3:34 AM Results for this PARENT TRAINER procedure are i n the results section. MAGNESIUM Routine 09/07/2019 3:34 AM Results for this PAR[facility] TRA[employer]ER procedure are i n the results section. XR CHEST 1 VIEW Routine 09/07/2019 3:16 AM Resul ts for this PORTABLE/BEDSIDE PARENT TRAINER procedure a re in the results section. TRANSFUSION SERVICE 09/06/2019 5:50 PM REPORT - SCAN PARENT TRAINER BLOOD GAS, ARTERIAL Routine 09/06/2019 3:56 PM R esults for this PARENT TRAINER procedure are i n the results section. XR CHEST 1 VIEW Routine 09/06/2019 12:08 PM Resul ts for this PORTABLE/BEDSIDE PARENT TRAINER procedure a re in the results section. XR CHEST 1 VIEW Routine 09/06/2019 11:55 AM Resul ts for this PORTABLE/BEDSIDE PARENT TRAINER procedure a re in the results section. LACTIC ACID, ARTERIAL STAT 09/06/2019 11:46 AM Results for this PAR[facility] TRA[facility]ER procedure are i n the results section. OXYGEN SATURATION, STAT 09/06/2019 11:46 AM Re sults for this MEASURED PARENT TRA[employer]ER procedure are i n the results section. GLUCOSE-STAT LAB STAT 09/06/2019 11:46 AM Resu lts for this PAR[facility] TRA[facility]ER procedure are i n the results section. POTASSIUM-STAT LAB STAT 09/06/2019 11:46 AM Re sults for this PAR[facility] TRA[facility]ER procedure are i n the results section. SODIUM NA-STAT LAB STAT 09/06/2019 11:46 AM Re sults for this PAR[facility] TRA[facility]ER procedure are i n the results section. HGB/HCT (H&H) - STAT STAT 09/06/2019 11:46 AM Results for this LAB [facility] procedure are i n the results section. CALCIUM, IONIZED STAT 09/06/2019 11:46 AM Resu lts for this PAR[facility] TRA[employer]ER procedure are i n the results section. BLOOD GAS, ARTERIAL STAT 09/06/2019 11:46 AM R esults for this PAR[facility] TRA[employer]ER procedure are i n the results section. CBC W/PLT COUNT & AUTO STAT 09/06/2019 11:45 AM Results for this DIFFERENTIAL PAR[employer] TRA[employer]ER procedure are i n the results section. FIBRINOGEN STAT 09/06/2019 11:45 AM Results for this PAR[facility] TRA[employer]ER procedure are i n the results section. APTT STAT 09/06/2019 11:45 AM Results for this PAR[facility] TRA[employer]ER procedure are i n the results section. PROTHROMBIN TIME/INR STAT 09/06/2019 11:45 AM Results for this PAR[facility] TRA[employer]ER procedure are i n the results section. MAGNESIUM STAT 09/06/2019 11:45 AM Results for this PAR[facility] TRAINER procedure are i n the results section. COMPREHENSIVE STAT 09/06/2019 11:45 AM Results for this METABOLIC PANEL PARENT TRAINER procedure ar e in the results section. CBC W/PLT COUNT & AUTO STAT 09/06/2019 11:45 AM Results for this DIFFERENTIAL PARENT TRA[employer]ER procedure are i n the results section. PHOSPHORUS STAT 09/06/2019 11:45 AM Results for this PAR[facility] TRA[employer]ER procedure are i n the results section. BASIC METABOLIC PANEL STAT 09/06/2019 11:45 AM Results for this (7) PARENT TRA[facility]ER procedure are i n the results section. POCT-ACT Routine 09/06/2019 10:33 AM Results for this PAR[facility] TRA[employer]ER procedure are i n the results section. HGB/HCT (H&H) - STAT STAT 09/06/2019 10:32 AM Results for this LAB [facility] procedure are i n the results section. GLUCOSE-STAT LAB STAT 09/06/2019 10:32 AM Resu lts for this PAR[facility] TRA[employer]ER procedure are i n the results section. POTASSIUM-STAT LAB STAT 09/06/2019 10:32 AM Re sults for this PAR[facility] TRA[employer]ER procedure are i n the results section. SODIUM NA-STAT LAB STAT 09/06/2019 10:32 AM Re sults for this PAR[facility] TRA[facility]ER procedure are i n the results section. BLOOD GAS, ARTERIAL STAT 09/06/2019 10:32 AM R esults for this PAR[facility] TRA[facility]ER procedure are i n the results section. CALCIUM, IONIZED STAT 09/06/2019 10:32 AM Resu lts for this PARENT TRAINER procedure are i n the results section. RRL CRITICAL LABS STAT 09/06/2019 10:32 AM Res ults for this (ABG,NA,K,H&H,GLUCOSE) PARENT TRA[facility]ER proce dure are in the results section. POCT-ACT Routine 09/06/2019 9:40 AM Results for this PAR[facility] TRA[facility]ER procedure are i n the results section. HGB/HCT (H&H) - STAT STAT 09/06/2019 9:37 AM Results for this LAB [facility] TRA[facility]ER procedure are i n the results section. GLUCOSE-STAT LAB STAT 09/06/2019 9:37 AM Resu lts for this PARENT TRAINER procedure are i n the results section. POTASSIUM-STAT LAB STAT 09/06/2019 9:37 AM Re sults for this PARENT TRAINER procedure are i n the results section. SODIUM NA-STAT LAB STAT 09/06/2019 9:37 AM Re sults for this PARENT TRAINER procedure are i n the results section. BLOOD GAS, ARTERIAL STAT 09/06/2019 9:37 AM R esults for this PARENT TRAINER procedure are i n the results section. RRL CRITICAL LABS STAT 09/06/2019 9:37 AM Res ults for this (ABG,NA,K,H&H,GLUCOSE) PARENT TRA[facility]ER proce dure are in the results section. ANESTHESIA MARIEL Routine 09/06/2019 9:19 AM Result s for this PARENT TRAINER procedure are i n the results section. POCT-ACT Routine 09/06/2019 9:09 AM Results for this PARENT TRA[facility]ER procedure are i n the results section. HGB/HCT (H&H) - STAT STAT 09/06/2019 9:07 AM Results for this LAB [facility] TRA[facility]ER procedure are i n the results section. GLUCOSE-STAT LAB STAT 09/06/2019 9:07 AM Resu lts for this PAR[facility] TRAINER procedure are i n the results section. POTASSIUM-STAT LAB STAT 09/06/2019 9:07 AM Re sults for this PARENT TRAINER procedure are i n the results section. SODIUM NA-STAT LAB STAT 09/06/2019 9:07 AM Re sults for this PARENT TRAINER procedure are i n the results section. BLOOD GAS, ARTERIAL STAT 09/06/2019 9:07 AM R esults for this PARENT TRAINER procedure are i n the results section. RRL CRITICAL LABS STAT 09/06/2019 9:07 AM Res ults for this (ABG,NA,K,H&H,GLUCOSE) PARENT TRAINER proce dure are in the results section. POCT-ACT Routine 09/06/2019 8:39 AM Results for this PARENT TRAINER procedure are i n the results section. HGB/HCT (H&H) - STAT STAT 09/06/2019 8:38 AM Results for this LAB [facility] TRA[facility]ER procedure are i n the results section. GLUCOSE-STAT LAB STAT 09/06/2019 8:38 AM Resu lts for this PARENT TRAINER procedure are i n the results section. POTASSIUM-STAT LAB STAT 09/06/2019 8:38 AM Re sults for this PARENT TRAINER procedure are i n the results section. SODIUM NA-STAT LAB STAT 09/06/2019 8:38 AM Re sults for this PARENT TRAINER procedure are i n the results section. BLOOD GAS, ARTERIAL STAT 09/06/2019 8:38 AM R esults for this PARENT TRAINER procedure are i n the results section. CALCIUM, IONIZED STAT 09/06/2019 8:38 AM Resu lts for this PARENT TRAINER procedure are i n the results section. RRL CRITICAL LABS STAT 09/06/2019 8:38 AM Res ults for this (ABG,NA,K,H&H,GLUCOSE) PARENT TRA[facility]ER proce dure are in the results section. HGB/HCT (H&H) - STAT STAT 09/06/2019 8:17 AM Results for this LAB PAR[facility] TRA[facility]ER procedure are i n the results section. GLUCOSE-STAT LAB STAT 09/06/2019 8:17 AM Resu lts for this PARENT TRAINER procedure are i n the results section. POTASSIUM-STAT LAB STAT 09/06/2019 8:17 AM Re sults for this PARENT TRAINER procedure are i n the results section. SODIUM NA-STAT LAB STAT 09/06/2019 8:17 AM Re sults for this PARENT TRAINER procedure are i n the results section. BLOOD GAS, ARTERIAL STAT 09/06/2019 8:17 AM R esults for this PARENT TRAINER procedure are i n the results section. CALCIUM, IONIZED STAT 09/06/2019 8:17 AM Resu lts for this PARENT TRAINER procedure are i n the results section. RRL CRITICAL LABS STAT 09/06/2019 8:17 AM Res ults for this (ABG,NA,K,H&H,GLUCOSE) PARENT TRAINER proce dure are in the results section. POCT-ACT Routine 09/06/2019 8:06 AM Results for this PARENT TRAINER procedure are i n the results section. ENDOSCOPIC 09/06/2019 7:30 AM Coronary artery HARVEST,VEIN PARENT TRAINER disease involving koi coronary artery of koi heart without angina pectoris Special Needs (ICU BED NEEDED) BYPASS,[place]TO CORONARY JASVIR/SVG 09/06/2019 7:30 AM PARENT TRAINER Coronary artery disease involving koi coronary artery of koi heart without angina pectoris Special Needs (ICU BED NEEDED) PREPARE RBC Routine 09/06/2019 7:11 AM PARENT TRAINER Resu lts for this procedure are i n the results section . CBC W/PLT COUNT & AUTO Routine 09/06/2019 2:33 AM PARENT TRAINER Results for this DIFFERENTIAL procedure are i n the results section . ABORH, MANUAL STAT 09/06/2019 2:33 AM PARENT TRAINER Res ults for this procedure are i n the results section . CBC W/PLT COUNT & AUTO Routine 09/06/2019 2:33 AM PARENT TRAINER Results for this DIFFERENTIAL procedure are i n the results section . BASIC METABOLIC PANEL (7) Routine 09/06/2019 2:33 AM PARENT TRAINER Results for this procedure are i n the results section . PHOSPHORUS Routine 09/06/2019 2:33 AM PARENT TRAINER Resu lts for this procedure are i n the results section . LIPID PANEL Routine 09/06/2019 2:33 AM PARENT TRAINER Resu lts for this procedure are i n the results section . PROTHROMBIN TIME/INR Routine 09/06/2019 2:33 AM PARENT TRAINER Results for this procedure are i n the results section . PT/APTT Routine 09/06/2019 2:33 AM PARENT TRAINER Resu lts for this procedure are i n the results section . HEMOGLOBIN A1C Routine 09/06/2019 2:33 AM PARENT TRAINER Re sults for this procedure are i n the results section . POCT-GLUCOSE METER Routine 09/05/2019 9:36 PM PARENT TRAINER Results for this procedure are i n the results section . CAROTID DOPPLER BILATERAL STAT 09/05/2019 5:30 PM PARENT TRAINER Results for this procedure are i n the results section . POCT-GLUCOSE METER Routine 09/05/2019 4:55 PM PARENT TRAINER Results for this procedure are i n the results section . ECG 12-LEAD Routine 09/05/2019 3:20 PM PARENT TRAINER Resu lts for this procedure are i n the results section . TYPE AND SCREEN, AUTOMATED Routine 09/05/2019 2:58 PM PARENT TRAINER Results for this procedure are i n the results section . XR CHEST 1 VIEW Routine 09/05/2019 1:11 PM PARENT TRAINER R esults for this PORTABLE/BEDSIDE procedure a re in the results section . POCT-GLUCOSE METER Routine 09/05/2019 12:02 PM PARENT TRAINER Results for this procedure are i n the results section . POCT-GLUCOSE METER Routine 09/05/2019 8:31 AM PARENT TRAINER Results for this procedure are i n the results section . CBC W/PLT COUNT & AUTO Routine 09/05/2019 4:51 AM PARENT TRAINER Results for this DIFFERENTIAL procedure are i n the results section . MAGNESIUM Routine 09/05/2019 4:51 AM PARENT TRAINER Resu lts for this procedure are i n the results section . TROPONIN I Routine 09/05/2019 4:51 AM PARENT TRAINER Resu lts for this procedure are i n the results section . B-TYPE NATRIURETIC FACTOR Routine 09/05/2019 4:51 AM PARENT TRAINER Results for this (BNP) procedure are i n the results section . CBC W/PLT COUNT & AUTO Routine 09/05/2019 4:51 AM PARENT TRAINER Results for this DIFFERENTIAL procedure are i n the results section . BASIC METABOLIC PANEL (7) Routine 09/05/2019 4:51 AM PARENT TRAINER Results for this procedure are i n the results section . PHOSPHORUS Routine 09/05/2019 4:51 AM PARENT TRAINER Resu lts for this procedure are i n the results section . LIPID PANEL Routine 09/05/2019 4:51 AM PARENT TRAINER Resu lts for this procedure are i n the results section . PROTHROMBIN TIME/INR Routine 09/05/2019 4:51 AM PARENT TRAINER Results for this procedure are i n the results section . PT/APTT Routine 09/05/2019 4:51 AM PARENT TRAINER Resu lts for this procedure are i n the results section . HEMOGLOBIN A1C Routine 09/05/2019 4:51 AM PARENT TRAINER Re sults for this procedure are i n the results section . POCT-GLUCOSE METER Routine 09/04/2019 9:33 PM PARENT TRAINER Results for this procedure are i n the results section . ECHOCARDIOGRAM REPORT - SCAN 09/04/2019 9:22 PM PARENT TRAINER MAGNESIUM Routine 09/04/2019 8:19 PM PARENT TRAINER Resu lts for this procedure are i n the results section . POCT-GLUCOSE METER Routine 09/04/2019 5:34 PM PARENT TRAINER Results for this procedure are i n the results section . POCT-GLUCOSE METER Routine 09/04/2019 1:07 PM PARENT TRAINER Results for this procedure are i n the results section . 2D ECHO W/ DOPPLER Routine 09/04/2019 9:46 AM PARENT TRAINER Results for this (CW/PW/COLOR) procedure are in the results section . POCT-GLUCOSE METER Routine 09/04/2019 7:42 AM PARENT TRAINER Results for this procedure are i n the results section . MAGNESIUM Routine 09/04/2019 5:05 AM PARENT TRAINER Resu lts for this procedure are i n the results section . BASIC METABOLIC PANEL (7) Routine 09/04/2019 5:05 AM PARENT TRAINER Results for this procedure are i n the results section . PHOSPHORUS Routine 09/04/2019 5:05 AM PARENT TRAINER Resu lts for this procedure are i n the results section . LIPID PANEL Routine 09/04/2019 5:05 AM PARENT TRAINER Resu lts for this procedure are i n the results section . PROTHROMBIN TIME/INR Routine 09/04/2019 5:05 AM PARENT TRAINER Results for this procedure are i n the results section . HEPATIC FUNCTION PANEL Routine 09/04/2019 5:05 AM PARENT TRAINER Results for this procedure are i n the results section . PT/APTT Routine 09/04/2019 5:05 AM PARENT TRAINER Resu lts for this procedure are i n the results section . HEMOGLOBIN A1C Routine 09/04/2019 5:05 AM PARENT TRAINER Re sults for this procedure are i n the results section . CBC W/PLT COUNT & AUTO Routine 09/03/2019 10:47 PM PARENT TRAINER Results for this DIFFERENTIAL procedure are i n the results section . MAGNESIUM Routine 09/03/2019 10:47 PM PARENT TRAINER Resu lts for this procedure are i n the results section . TSH/FREE T4 IF INDICATED Routine 09/03/2019 10:47 PM PARENT TRAINER Results for this procedure are i n the results section . B-TYPE NATRIURETIC FACTOR Routine 09/03/2019 10:47 PM PARENT TRAINER Results for this (BNP) procedure are i n the results section . COMPREHENSIVE METABOLIC Routine 09/03/2019 10:47 PM PARENT TRAINER Results for this PANEL procedure are i n the results section . CBC W/PLT COUNT & AUTO Routine 09/03/2019 10:47 PM PARENT TRAINER Results for this DIFFERENTIAL procedure are i n the results section . TROPONIN I Routine 09/03/2019 10:47 PM PARENT TRAINER Resu lts for this procedure are i n the results section . POCT-GLUCOSE METER Routine 09/03/2019 10:05 PM PARENT TRAINER Results for this procedure are i n the results section . ECG 12-LEAD Routine 09/03/2019 9:53 PM PARENT TRAINER Resu lts for this procedure are i n the results section . after 06/01/2019 Results EKG-SCANNED (09/17/2019 9:20 AM PARENT TRAINER) Narrative Performed At This result has an attachment that is no t available. RHYTHM STRIP - SCAN (09/17/2019 9:20 AM PARENT TRAINER)Only the most recent of2 results within the time period is included. Narrative Performed At This result has an attachment that is no t available. PERIPHERAL VASCULAR REPORT - SCAN (09/13/2019 9:20 PM PARENT TRAINER) Narrative Performed At This result has an attachment that is no t available. POC-Glucose meter (09/13/2019 7:37 AM PARENT TRAINER)Only the most recent of32 results within the time period is included. POC-Glucose Meter 66 (L)Comment: : TESTED 70 - 110 mg/dL [facility] AT [address], [address]: Ranch Supervisor/Key Punch Operator ID = [id number] for BAILEY WILSON Specimen Blood Performing Organization Address City/State/Zipcode Phone Number [facility] [address] [place] [address] CENTER CBC with platelet count + automated diff (09/13/2019 4:17 AM PARENT TRAINER)Only the most recent of9 resultswithin the time period is included. WBC 8.0 3.5 - 10.5 K/L [facility] RBC 4.24 (L) 4.63 - 6.08 M/L [facility] Hemoglobin 12.5 (L) 13.7 - 17.5 GM/DL [facility] Hematocrit 37.4 (L) 40.1 - 51.0 % [facility] MCV 88.2 79.0 - 92.2 fL [facility] MCH 29.5 25.7 - 32.2 pg [facility] MCHC 33.4 32.3 - 36.5 GM/DL [facility] RDW 13.8 11.6 - 14.4 % [facility] Platelets 255 150 - 450 K/CU MM [facility] MPV 11.1 9.4 - 12.4 fL [facility] nRBC 0 0 - 0 /100 WBC [facility] % Neutros 64 % [facility] % Lymphs 20 % [facility] % Monos 12 % [facility] % Eos 3 % [facility] % Baso 1 % [facility] # Neutros 5.16 1.78 - 5.38 K/L [facility] # Lymphs 1.60 1.32 - 3.57 K/L [facility] # Monos 0.93 (H) 0.30 - 0.82 K/L [facility] # Eos 0.27 0.04 - 0.54 K/L [facility] # Baso 0.04 0.01 - 0.08 K/L [facility] Immature Granulocytes-Relative 0 0 - 1 % C [facility] Specimen Blood Performing Organization Address City/[facility]/Zipcode Phone Number [facility] [place] [place] [address] [place] [address] [place] Basic Metabolic Panel (09/13/2019 4:17 AM PARENT TRAINER)Only the most recent of11 results within the time period is included. Sodium 136 136 - 145 meq/L [facility] Potassium 3.5 3.5 - 5.1 meq/L [facility] Chloride 105 98 - 107 meq/L [facility] CO2 25 22 - 29 meq/L [facility] BUN 13 7 - 21 mg/dL [facility] Creatinine 0.75 0.57 - 1.25 mg/dL [facility] Glucose 61 (L) 70 - 105 mg/dL [facility] Calcium 8.4 8.4 - 10.2 mg/dL [facility] EGFR 104Comment: ESTIMATED GFR IS mL/min/1.73 sq m [facility] NOT ACCURATE CREATININE AL DICAL CENTER CLEARANCE IN PREDICTING GLOMERULAR FILTRATION RATE. ESTIMATED GFR IS NOT APPLICABLE FOR DIALYSIS PATIENTS. Specimen Blood Performing Organization Address City/[facility]/Zipcode Phone Number [facility] [place] [place] [address] [place] [address] [place] Venous doppler legs bilateral (09/12/2019 9:12 AM PARENT TRAINER) Ejection Fraction [facility] ECHO HEAR TLAB [facility]ON [facility] Specimen Impressions Performed At Right Impression [facility] ECHO HEARTLAB MKCKESSON CPACS 1. There is no deep venous obstruction in the common femoral, profunda femoral, femoral, popliteal, posterior tibial or peroneal veins. 2. There is no superficial venous obstruction in the great saphenous vein. Left Impression 1. There is no deep venous obstruction in the common femoral, profunda femoral, femoral, popliteal, posterior tibial or peroneal veins. 2. There is no superficial venous obstruction in the great saphenous vein. Conclusions Summary Venous duplex imaging and compression of the bilateral lower extremities were performed. The veins were adequately visualized. The bilateral venous systems were patent and compressible with no evidence of thrombus. The venous Doppler waveforms were phasic with respiration. Signature Velocities are measured in cm/s ; Diameters are measured in cm Narrative Performed At PV LAB - Lower Extremities DVT Study [facility] ECHO HEARTLAB MKCKESSON [facility] Demographics Patient NameAGPRIYANKA SOUZA Date of Study 09/12/2019 BASSEM SHORT 68 Visit [id number] Male of 1950 Referring Dameon English, Room Number 1151 Physician Hydraulic Mechanic Anastasia Aguilarprebrooklyn hospital centerPatricia Lo Ángel Physician Procedure Type of Study: Veins: Lower Extremities DVT Study, VENOUS DOPPLER LEG, BILATERAL. Indications for Study:Leg swelling. Patient Status:Routine. Study Location:Vascular Lab. Technical Quality:Adequate visualization . Risk Factors History of Disease + --+----+ + !Diagnosis !Date! Comments ! + --+----+ + !History/Risk Factors: !!CAD w/CABG ! + --+----+ + Procedure Note Interface, External Ris In - 09/13/2019 2:45 AM PARENT TRAINER PV LAB - Lower Extremities DVT Study Demographics Patient Name PRIYANKA VILLALOBOS Chin e of Study 09/12/2019 JOE Age 68 Visit Number [id number] Gen eh Male Accession Number [id number] Chin e of 1950 Referring Samara Benitez Number 1151 Physician Hydraulic Mechanic Anastasia Guerra [facility] Jocelyne Lo Ángel lagos MD Procedure Type of Study: Veins: Lower Extremities DVT Study, JOSY OUS DOPPLER LEG, BILATERAL. Indications for Study:Leg swelling. Patient Status:Routine. Study Location:Vascular Lab. Technical Quality:Adequate visualization . Risk Factors History of Disease + +----+ + !Diagnosis !Date!Comments ! + +----+ + !History/Risk Factors: ! !CAD w/CABG ! + +----+ + Impressions Right Impression 1. There is no deep venous obstruction i n the common femoral, profunda femoral, femoral, popliteal, posterior t ibial or peroneal veins. 2. There is no superficial venous obstru ction in the great saphenous vein. Left Impression 1. There is no deep venous obstruction i n the common femoral, profunda femoral, femoral, popliteal, posterior t ibial or peroneal veins. 2. There is no superficial venous obstru ction in the great saphenous vein. Conclusions Summary Venous duplex imaging and compression o f the bilateral lower extremities were performed. The veins were adequate ly visualized. The bilateral venous systems were patent and compressible wi th no evidence of thrombus. The venous Doppler waveforms were phasic wi th respiration. Signature Velocities are measured in cm/s ; Diamet ers are measured in cm Performing Organization Address City/State/Zipcode Phone Number [facility] ECHO HEARTLAB MK[facility] ECHOCARDIOGRAM REPORT - SCAN (09/11/2019 9:10 PM PARENT TRAINER) Narrative Performed At This result has an attachment that is no t available. 2D Echo W/Doppler(CW/PW/Color) (09/10/2019 2:46 PM PARENT TRAINER) Ejection Fraction [facility] ECHO HEAR TLAB [facility] Specimen Narrative Performed At Transthoracic Echocardiography Report (T TE) [facility] ECHO HEARTLAB [facility] Demographics Patient Name Sushma VILLALOBOS of Study 09/10/2019 JOE [id number] Gender Male Visit Number [id number] Paco yeh [id number] Room Number 1151 Number Date of Birth1950 Referring Physician Age68 year(s) Hydraulic Mechanic Abed Bola Hanna Greco MD Fellow Hannah smith MD Procedure Type of Study TTE procedure:2DECHO W DOPPLER(CW/PW/COLOR) (MASSIMO) Indications:Known or suspected cardiomyo sundeep. Clinical History HGB 13.5 HCT 40.3 % ACUTE ON CHRONIC COMBINED SYSTOLIC AND DIASTOLIC CHF ARRTHYMIA CAD DM HTN STROKE BYPASS AORTO CORONARY JASVIR/SVG 09/06/19 Contrast Medium: Definity. Amount - 2 ml Height: 64 inches Weight: 76.2 kg (168 lbs) BSA: 1.82 m^2 BMI: 28.84 kg/m^2 HR: 69 bpm BP: 111/71 mmHg Summary 1. The left ventricle is chamber size (by vol index) is mildly enlarged. All of the LV segments are severely hypokinetic. LVEF is severely reduced (<20%) 2. RV chamber size is mildly enlarged . Global RV systolic function is depressed . 3. Estimated peak systolic PA pressure is 25-30 mmHg +RAP. 4. The estimated RA pressure by IVC dynamics 5-10mmHg 5. Moderate functional mitral regurgita tion. Previous Study In comparison with the prior exam 09/04/19 the following changes are noted: the LV function is now <20% and the estimated PAP is now 25-30mmHg+RAP. Signature Findings Rhythm/BPRegular sinus rhythm during the exam. Left Ventricle LV endocardium is well visualized with IV ul trasound enhancing agent. Th e left ventricle is chamber size (by vol index) is mildly enlarged (male - LVED 75-89ml/m2) . No rmal LV wall thickness. Al l of the LV segments are severely hypoki netic . LV EF by Ma's method of disk assessmen t is se verely reduced (<20%) . Left AtriumLA is well visualized. LA size is severely enlarged (>48 ml/m2) . Right VentricleRV chamber size is mildly enlarged . Gl obal RV systolic function is depressed . Right Atrium RA size is moderately dilated. Aortic Valve Mild AoV cusp thickening. Mi ld AoV cusp calcification. Mitral Valve Mild MV leaflet thickening. Mi ld mitral annular calcification. Mo derate mitral regurgitation. Tricuspid ValveTV structure is normal. Mi ld tricuspid regurgitation. Es timated peak systolic PA pressure is 25- 30 mmHg +R AP. Pulmonic Valve Normal PV structure appears normal by available vi ews. Mi ld pulmonary regurgitation. AortaAortic root size (SInus of Valsalva diameter) i s no rmal . PericardiumNo significant pericardial effusion is visualized. IVC/SVC/PA/PV/PleuralThe inferior vena cava is partially visualized. Th e estimated RA pressure by IVC dynamics 5-10mmHg . Chambers/Structures Left Atrium LA Volume: 137.08 mlLA Area: 35.16 cm^2 LA Vol. Index: 75 ml/m^2 Left Ventricle LVIDd: 6.26 cm LVEDV:131.69 ml LVIDs: 5.28 cm LV Septum Diastolic: 0.84 cm LV PW Diastolic: 0.96 cm LV FS: 15.7 % LVEDV Ma's:136.18 ml LVESV Ma's:105.44 ml LVEDVI: 75 ml/m^2 LVEF Ma's: 22.6 % LVESVI: 58 ml/m^2 LVOT Diameter: 2.06 cm Right Ventricle RVOT VTI: 8.9 cm Aorta Ao Root S of Jenny.: 3.18 cm Doppler/Quantitative Measurements Mitral Valve MV Peak E-Wave: 0.84 m/s MV Peak A-Wave: 0.27 m/s E/A Ratio: 3.11 Peak Gradient: 2.8 1 mmHg Deceleration Time: 151.4 msec MR Velocity: 3.68 m/s MV Leandro. Peak: Aortic Valve Peak Velocity: 0.96 m/sMean Velocity: 0.59 m/s Peak Gradient: 3.7 mmHgMean Gradient: 1.67 mmHg AV Area (continuity): 4.74 cm^2 AV VTI: 14.76 cm AV DVI: 1.42 LVOT Peak Velocity: 1.39 m/s Peak Gradient: 7.74 mmHg Mean Velocity: 0.94 m/s Mean Gradient: 3.98 mmHg LVOT Diameter: 2.06 cmLVOT VTI: 21.02 cm LVOT Area: 3.33 cm^2LVOT SV:70.02 ml LVOT CO: 4.83 l/min LVOT CI: 2.65 l/min/m^2 Tricuspid Valve TR Velocity: 2.52 m/s TR Gradient: 25.48 mmHg Procedure Note Interface, External Ris In - 09/11/2019 6:30 PM PARENT TRAINER Transthoracic Echocardiography Report (TTE) Demographics Patient Name PRIYANKA VILLALOBOS Date of Study 09/10/2019 JOE Gende r Male Visit Number [id number] Race Unknown Room Number 1151 Number Date of 1950 Refer ring Physician Age 68 year(s) Sonog rapher Abed Bola Inter preting Tiffany Greco MD Fellow Hannah Eugene MD Procedure Type of Study TTE procedure:2DECHO W DOPPLE R(CW/PW/COLOR) (MASSIMO) Indications:Known or suspected cardiomyo sundeep. Clinical History HGB 13.5 HCT 40.3 % ACUTE ON CHRONIC COMBINED SYSTOLIC AND D IASTOLIC CHF ARRTHYMIA CAD DM HTN STROKE BYPASS AORTO CORONARY JASVIR/SVG 09/06/19 Contrast Medium: Definity. Amount - 2 ml Height: 64 inches Weight: 76.2 kg (168 l bs) BSA: 1.82 m^2 BMI: 28.84 kg/m^2 HR: 69 bpm BP: 111/71 mmHg Summary 1. The left ventricle is chamber size ( by vol index) is mildly enlarged. All of the LV segments are severely hyp okinetic. LVEF is severely reduced (<20%) 2. RV chamber size is mildly enlarged . Global RV systolic function is depressed . 3. Estimated peak systolic PA pressure is 25-30 mmHg +RAP. 4. The estimated RA pressure by IVC dyn amics 5-10mmHg 5. Moderate functional mitral regurgita tion. Previous Study In comparison with the prior exam 09/04 the following changes are noted: the LV function is now <20% and the estimated PAP is now 25-30mmHg+RAP. Signature Findings Rhythm/BP Regular sinus rh ythm during the exam. Left Ventricle LV endocardium i s well visualized with IV ultrasound enhan cing agent. The left ventric le is chamber size (by vol index) is mildly enlarg ed (male - LVED 75-89ml/m2). Normal LV wall t hickness. All of the LV se gments are severely hypokinetic . LVEF by Ma' s method of disk assessment is severely reduced (<20%) . Left Atrium LA is well visua lized. LA size is sever rola enlarged (>48 ml/m2) . Right Ventricle RV chamber size is mildly enlarged . Global RV systol ic function is depressed . Right Atrium RA size is moder ately dilated. Aortic Valve Mild AoV cusp th ickening. Mild AoV cusp ca lcification. Mitral Valve Mild MV leaflet thickening. Mild mitral jonatan lar calcification. Moderate mitral regurgitation. Tricuspid Valve TV structure is normal. Mild tricuspid r egurgitation. Estimated peak s ystolic PA pressure is 25-30 mmHg +RAP. Pulmonic Valve Normal PV struct ure appears normal by available views. Mild pulmonary r egurgitation. Aorta Aortic root size (SInus of Valsalva diameter) is normal . Pericardium No significant p ericardial effusion is visualized. IVC/SVC/PA/PV/Pleural The inferior josy a cava is partially visualized. The estimated RA pressure by IVC dynamics 5-10mmHg . Chambers/Structures Left Atrium LA Volume: 137.08 ml LA Area: 35.16 cm^2 LA Vol. Index: 75 ml/m^2 Left Ventricle LVIDd: 6.26 cm LVEDV:131.69 ml LVIDs: 5.28 cm LV Septum Diastolic: 0.84 cm LV PW Diastolic: 0.96 cm LV FS: 15.7 % LVEDV Ma's:136.18 ml LVESV Ma's:105.44 ml LVEDVI: 75 ml/m^2 LVEF Ma's: 22.6 % LVESVI: 58 ml/m^2 LVOT Diameter: 2.06 cm Right Ventricle RVOT VTI: 8.9 cm Aorta Ao Root S of Jenny.: 3.18 cm Doppler/Quantitative Measurements Mitral Valve MV Peak E-Wave: 0.84 m/s MV P eak A-Wave: 0.27 m/s E/A Ratio: 3.11 Peak Gradient: 2.81 mmHg Dece leration Time: 151.4 msec MR V elocity: 3.68 m/s MV Leandro. Peak: Aortic Valve Peak Velocity: 0.96 m/s Mean Velocity: 0.59 m/s Peak Gradient: 3.7 mmHg Mean Gradient: 1.67 mmHg AV Area (continuity): 4.74 cm^2 AV VTI: 14.76 cm AV DVI: 1.42 LVOT Peak Velocity: 1.39 m/s Pea k Gradient: 7.74 mmHg Mean Velocity: 0.94 m/s Rochelle n Gradient: 3.98 mmHg LVOT Diameter: 2.06 cm LVO T VTI: 21.02 cm LVOT Area: 3.33 cm^2 LVO T SV:70.02 ml LVOT CO: 4.83 l/min LVO T CI: 2.65 l/min/m^2 Tricuspid Valve TR Velocity: 2.52 m/s TR Gradient: 25.48 mmHg Performing Organization Address City/[facility] Cent[facility]ode Phone Number [facility] ECHO HEARTLAB MK[facility] CBC (Hemogram only) (09/10/2019 9:59 AM PARENT TRAINER) WBC 10.1 3.5 - 10.5 K/L [facility] RBC 4.52 (L) 4.63 - 6.08 M/L [facility] Hemoglobin 13.5 (L) 13.7 - 17.5 GM/DL [facility] Hematocrit 40.3 40.1 - 51.0 % [facility] MCV 89.2 79.0 - 92.2 fL [facility] MCH 29.9 25.7 - 32.2 pg [facility] MCHC 33.5 32.3 - 36.5 GM/DL [facility] RDW 14.0 11.6 - 14.4 % [facility] Platelets 194 150 - 450 K/CU MM [facility] MPV 11.5 9.4 - 12.4 fL [facility] nRBC 0 0 - 0 /100 WBC [facility] Specimen Blood Performing Organization Address City/[facility] Centercode Phone Number [address] [address] CENTER Magnesium (09/10/2019 9:59 AM PARENT TRAINER)Only the most recent of9 resultswithin the time period is included. Magnesium 2.0 1.6 - 2.6 mg/dL [facility] Specimen Blood Performing Organization Address City/[facility] Centercode Phone Number [address] [address] CENTER ECG 12 lead (09/09/2019 11:35 AM PARENT TRAINER)Only the most recent of6 resultswithin the time period is included. Specimen Narrative Performed At Ventricular Rate 93 BPM GE MUSE Atrial Rate 300 BPM QRS Duration 108 ms Q-T Interval 386 ms QTC Calculation(Bazett) 479 ms R Edna 36 degrees T Edna 235 degrees Atrial flutter with variable A-V block with premature ventricular or aberrantly conducted complexes Inferior infarct (cited on or before Aug-2019) Cannot excludeAnterolateral infarct ST elevation in V1-V2 cannot exclude CISCO DC Nonspecific T wave abnormality Prolonged QT Abnormal ECG When compared with ECG of 09-SEP-2019 06 :47, Atrial flutter replaced sinus rhythm PVCs now seen Q waves width has increased in V4-V6 QT has lengthened Confirmed by MD SHENG, KEITH ([id number]) on 09/09/2019 6:25:52 PM Procedure Note Interface, External Ris In - 09/09/2019 6:26 PM PARENT TRAINER Ventricular Rate 93 BPM Atrial Rate 300 BPM QRS Duration 108 ms Q-T Interval 386 ms QTC Calculation(Bazett) 479 ms R Edna 36 degrees T Edna 235 degrees Atrial flutter with variable A-V block w ith premature ventricular or aberrantly conducted complexes Inferior infarct (cited on or before Aug-2019) Cannot exclude Anterolateral infarct ST elevation in V1-V2 cannot exclude CISCO DC Nonspecific T wave abnormality Prolonged QT Abnormal ECG When compared with ECG of 09-SEP-2019 06 :47, Atrial flutter replaced sinus rhythm PVCs now seen Q waves width has increased in V4-V6 QT has lengthened Confirmed by MD SHENG, KEITH ([id number]) on 09/09/2019 6:25:52 PM Performing Organization Address City/[facility]/Zipcode Phone Number [employer] MUSE Calcium, Ionized (09/09/2019 6:06 AM PARENT TRAINER)Only the most recent of7 resultswithin the time period is included. Calcium, Ion 1.07 (L) 1.12 - 1.27 mmol/L [facility] pH, Blood 7.48 [facility] Specimen Blood Performing Organization Address City/[facility]/Zipcode Phone Number [facility] [address] [place] [address] CENTER XR chest 1 view portable / bedside (09/09/2019 5:50 AM PARENT TRAINER)Only the most recent of6 resultswithin the time period is included. Specimen Narrative Performed At FINAL REPORT GE RIS RAD, CHEST, 1 VIEW, NON DEPT INDICATION: post chest tube removal COMPARISON: Prior day's exam FINDINGS: Portable frontal view of the c hest. IMPRESSION: Support Lines: None. Lungs and pleura: Previously described l eft apical pneumothorax is not well characterized in the current ex amination. Airspaces and lung markings otherwise unchanged. Heart and mediastinum: Stable contours. Stable surgical changes. Additional findings: None. Signed: JR Patel Robert MD Report Verified Date/Time:09/09/2019 07:05:10 Reading Location: [facility] Reading Room Procedure Note Interface, External Ris In - 09/09/2019 7:07 AM PARENT TRAINER FINAL REPORT RAD, CHEST, 1 VIEW, NON DEPT INDICATION: post chest tube removal COMPARISON: Prior day's exam FINDINGS: Portable frontal view of the c hest. IMPRESSION: Support Lines: None. Lungs and pleura: Previously described l eft apical pneumothorax is not well characterized in the current ex amination. Airspaces and lung markings otherwise unchanged. Heart and mediastinum: Stable contours. Stable surgical changes. Additional findings: None. Signed: JR Patel Robert MD Report Verified Date/Time: 09/09/2019 0 7:05:10 Reading Location: [facility] Reading Room Performing Organization Address City/State/Zipcode Phone Number RIS Phosphorus (09/08/2019 5:46 AM PARENT TRAINER)Only the most recent of7 resultswithin the time period is included. Phosphorus 2.5 2.3 - 4.7 mg/dL [facility] Specimen Blood Performing Organization Address City/State/Zipcode Phone Number [address] [address] CENTER TRANSFUSION SERVICE REPORT - SCAN (09/07/2019 5:51 PM PARENT TRAINER)Only the most recent of2 resultswithin the time period is included. Narrative Performed At This result has an attachment that is no t available. Oxygen saturation, measured (09/07/2019 3:34 AM PARENT TRAINER)Only the most recent of2 resultswithin the time period is included. O2 Saturation (Measured) 67.1 % [facility] Specimen Blood Performing Organization Address [facility] Phone Number [address] [address] [place] Lactic Acid, Arterial (09/07/2019 3:34 AM PARENT TRAINER)Only the most recent of2 results within the time period is included. Lactate, Art 0.9 0.5 - 2.2 mmol/L [facility] Specimen Blood, Arterial Performing Organization Address [facility]/[place] Phone Number [address] [address] [place] Blood gas, arterial (09/07/2019 3:34 AM PARENT TRAINER)Only the most recent of8 results within the time period is included. pH, Arterial 7.40 7.35 - 7.45 [facility] pCO2, Arterial 39 35 - 45 mmHg [facility] pO2, Arterial 89 80 - 90 mmHg [facility] O2 Sat, Arterial 97.0 96.0 - 97.0 % [facility] HCO3, Arterial 24 21 - 29 mmol/L [facility] Base Excess, Arterial -1.0 -2.0 - 3.0 mmol/L [facility] Patient Temperature 36.6 C [facility] FIO2 36.0 % [facility] Specimen Blood, Arterial Performing Organization Address [facility]/[place] Phone Number [address] [address] [place] Potassium-Stat Lab (09/06/2019 11:46 AM PARENT TRAINER)Only the most recent of6 results within the time period is included. Potassium 4.4 3.6 - 5.5 meq/L [facility] Specimen Blood, Arterial Performing Organization Address City/[facility] Phone Number [address] [address] [place] Sodium Na-Stat Lab (09/06/2019 11:46 AM PARENT TRAINER)Only the most recent of6 results within the time period is included. Sodium 137 135 - 148 meq/L [facility] Specimen Blood, Arterial Performing Organization Address [facility] Phone Number [address] [address] [place] Glucose-Stat Lab (09/06/2019 11:46 AM PARENT TRAINER)Only the most recent of6 resultswithin the time period is included. Glucose 194 (H) 70 - 110 mg/dL [facility] Specimen Blood, Arterial Performing Organization Address [facility]/[place] Phone Number [address] [address] [place] HGB/HCT (H&H)-Stat Lab (09/06/2019 11:46 AM PARENT TRAINER)Only the most recent of6 resultswithin the time period is included. Hemoglobin 14.6 13.0 - 16.8 g/dL [facility] Hematocrit 43.0 40.0 - 50.0 % [facility] Specimen Blood, Arterial Performing Organization Address City/[facility] Cent[facility]ode Phone Number [address] [address] [place] aPTT (09/06/2019 11:45 AM PARENT TRAINER) PTT 35.7 22.5 - 36.0 seconds [facility] Specimen Blood Performing Organization Address City/[facility] Centercode Phone Number [place] [phone] [place] [address] CENTER Prothromin time/INR (09/06/2019 11:45 AM PARENT TRAINER)Only the most recent of4 results within the time period is included. Protime 18.0 (H) 11.9 - 14.2 seconds [facility] INR 1.6 <=5.9 [facility] Specimen Blood Narrative Performed At Effective 03/06/2019: PT Reference Range [facility] Change New: 11.9-14.2Previous: 11.7-14.7 RECOMMENDED COUMADIN/WARFARIN INR THERAPY RANGES STANDARD DOSE: 2.0-3.0Includes: PROPHYLAXIS for venous thrombosis, systemic embolization; TREATMENT for venous thrombosis and/or pulmonary embolus. HIGH RISK: Target INR is 2.5-3.5 for patients wiht mechanical heart valves. Performing Organization Address City/[facility] Cent[facility]ode Phone Number [address] [address] CENTER Fibrinogen (09/06/2019 11:45 AM PARENT TRAINER) Fibrinogen 299 225 - 434 mg/dl [facility] Specimen Blood Performing Organization Address City/[facility] Centercode Phone Number [address] [phone] CENTER Comprehensive metabolic panel (09/06/2019 11:45 AM PARENT TRAINER)Only the most recent of2 resultswithin the time period is included. Protein, Total 5.8 (L)Comment: Specimen 6.0 - 8.3 gm/dL [facility] slightly hemolyzed [facility] Albumin 3.4 (L)Comment: Specimen 3.5 - 5.0 g/dL [facility] slightly hemolyzed [facility] Alkaline Phosphatase 62 40 - 150 U/L [facility] ER Total Bilirubin 2.3 (H)Comment: Specimen 0.2 - 1.2 mg/dL [facility] slightly hemolyzed [facility] Sodium 137 136 - 145 meq/L [facility] Potassium 4.6Comment: Specimen 3.5 - 5.1 meq/L [facility] slightly hemolyzed [facility] Chloride 108 (H) 98 - 107 meq/L [facility] CO2 22 22 - 29 meq/L [facility] BUN 29 (H) 7 - 21 mg/dL [facility] Creatinine 1.04Comment: Specimen 0.57 - 1.25 mg/dL [facility] slightly hemolyzed [facility] Glucose 194 (H) 70 - 105 mg/dL [facility] Calcium 8.1 (L) 8.4 - 10.2 mg/dL [facility] AST 33Comment: Specimen 5 - 34 U/L [facility] slightly hemolyzed [facility] ALT 15Comment: Specimen 6 - 55 U/L [facility] slightly hemolyzed [facility] EGFR 71Comment: ESTIMATED GFR mL/min/1.73 sq m [facility] IS NOT ACCURATE [facility] CREATININE CLEARANCE IN PREDICTING GLOMERULAR FILTRATION RATE. ESTIMATED GFR IS NOT APPLICABLE FOR DIALYSIS PATIENTS. Specimen Blood Narrative Performed At Specimen slightly icteric [facility] Performing Organization Address City/[facility] Centercode Phone Number [address] [address] CENTER POC ACTIVATED CLOTTING TIME (09/06/2019 10:33 AM PARENT TRAINER)Only the most recent of5 resultswithin the time period is included. Activated Clotting Time 120Comment: Reference sec [facility] Range: 74-137 seconds, MEDICAL CENTER Baseline/TESTED AT [address] [address] Specimen Blood Performing Organization Address [facility] Centercode Phone Number [address] [phone] CENTER MARIEL (09/06/2019 9:19 AM PARENT TRAINER) Narrative Performed At Regan Patel Jr., MD 99:50 AM MARIEL Date: 09/06/2019 9:19 AM Sex: Male Locat ion: OR Examiner: Regan Patel Jr., Stan Chau Patient screened for esoph disease: Yes Insertion: easy Probe Type: multiplane Modalities: CWD, PWD, CFM and 2D Ventricles Cavity size Dimension Hypertr ophy Thrombus Global FXN EF Right ventricle Left otkrvyxwb25% Pre Intervention Summary: Aorta: No aneu rysm, no dissection, no mobile plaques AV: trileaflet morphology, No aortic cisco nosis, No aortic regurgitation LV: Severly dilated chamber size (212cm2 ), No LVH, moderate to severe reduction in systolic function (EF 25-30 % by qualitative assessment and ma's), No RWMA, no thrombus MV: normal morphology, trace, central, ischemic mitral regurgitation, No mitral stenosis (mean PG 1mmHg) LA: no LUTHER thrombus, normal size and fun ction PV: limited visualization RV: mod dilated sized chamber, mildly re duced function, no thrombus TV: normal morphology, trace tricuspid r egurgitation RA: no thrombus No PFO by color dopper flow All findings communicated to surgical te am. Post Intervention Summary: Procedure Note Regan Patel Jr., MD - 09/06/2019 9:1 9 AM PARENT TRAINER MARIEL Date: 09/06/2019 9:19 AM Sex: Male Locat ion: OR Examiner: Regan Patel Jr., Stan Chau Patient screened for esoph disease: Yes Insertion: easy Probe Type: multiplane Modalities: CWD, PWD, CFM and 2D Ventricles Cavity size Dimension Hypertr ophy Thrombus Global FXN EF Right ventricle Left ventricle 30% Pre Intervention Summary: Aorta: No aneu rysm, no dissection, no mobile plaques AV: trileaflet morphology, No aortic cisco nosis, No aortic regurgitation LV: Severly dilated chamber size (212cm2 ), No LVH, moderate to severe reduction in systolic function (EF 25-30% by qualitative assessment and ma's), No RWMA, no thrombus MV: normal morphology, trace, central, i schemic mitral regurgitation, No mitral stenosis (mean PG 1mmHg) LA: no LUTHER thrombus, normal size and fun ction PV: limited visualization RV: mod dilated sized chamber, mildly re duced function, no thrombus TV: normal morphology, trace tricuspid r egurgitation RA: no thrombus No PFO by color dopper flow All findings communicated to surgical te am. Post Intervention Summary: Prepare RBC (09/06/2019 7:11 AM PARENT TRAINER) CROSSMATCH COMPATIBLE SAFETRACE TX Unit ABO O Pos SAFETRACE TX UNIT NUMBER [id number] SAFETRACE TX Status READY SAFETRACE TX Blood Bank Product RED BLOOD CELLS SAFETRACE TX PRODUCT CODE [id number] SAFETRACE TX CROSSMATCH COMPATIBLE SAFETRACE TX Unit ABO O Pos SAFETRACE TX UNIT NUMBER [id number] SAFETRACE TX Status READY SAFETRACE TX Blood Bank Product RED BLOOD CELLS SAFETRACE TX PRODUCT CODE [id number] SAFETRACE TX Performing Organization Address City/[facility] Cent[facility]ode Phone Number SAFETRACE TX ABORH, manual (09/06/2019 2:33 AM PARENT TRAINER) Rh Factor POS [facility] ABO Grouping O [facility] Specimen Blood Performing Organization Address City/[facility] Centercode Phone Number [facility] [address] [place] [address] PT/aPTT (09/06/2019 2:33 AM PARENT TRAINER)Only the most recent of3 resultswithin the time period is included. Protime 15.0 (H) 11.9 - 14.2 seconds [facility] INR 1.2 <=5.9 [facility] PTT 38.8 (H) 22.5 - 36.0 seconds [facility] Specimen Blood Narrative Performed At Effective 03/06/2019: PT Reference Range [facility] Change New: 11.9-14.2Previous: 11.7-14.7 RECOMMENDED COUMADIN/WARFARIN INR THERAPY RANGES STANDARD DOSE: 2.0-3.0Includes: PROPHYLAXIS for venous thrombosis, systemic embolization; TREATMENT for venous thrombosis and/or pulmonary embolus. HIGH RISK: Target INR is 2.5-3.5 for patients wiht mechanical heart valves. Performing Organization Address City/[facility]/Zipcode Phone Number [address] [address] [place] Hemoglobin A1c (09/06/2019 2:33 AM PARENT TRAINER)Only the most recent of3 resultswithin the time period is included. Hemoglobin A1C 6.7 (H) 4.3 - 6.1 % [facility] Specimen Blood Performing Organization Address [facility] Phone Number [address] [address] [place] Lipid panel (09/06/2019 2:33 AM PARENT TRAINER)Only the most recent of3 resultswithin the time period is included. Triglycerides 203 mg/dL [facility] Cholesterol 231 mg/dL [facility] HDL 37 mg/dL [facility] LDL Calculated 153 mg/dL [facility] Specimen Blood Narrative Performed At Triglyceride Reference Range: [facility] Low Risk <150 [id number] High Risk 200-499 Very High Risk>=500 Cholesterol Reference Range: Low Risk <200 [id number] High Risk>240 HDL Cholesterol Reference Range: Low Risk >=60 High Risk <40 LDL Cholesterol Reference Range: Optimal<100 Near Tnzsnja999-993 Oqnrmolasc372-646 Aiay880-909 Very High >=190 Specimen slightly icteric Performing Organization Address [facility]/Zipcode Phone Number [address] [address] [place] Carotid doppler bilateral (09/05/2019 5:30 PM PARENT TRAINER) Ejection Fraction [facility] ECHO HEAR TLAB MKCK[facility]ON CPACS Specimen Impressions Performed At Right Impression [facility] ECHO HEARTLAB [facility] CPACS 1. There is <50% diameter reduction (approximately 23% by 2-D measurement) in the internal carotid artery with a peak velocity of 51 cm/sec and heterogeneous plaque. 2. There is non-occluding plaque in the external carotid artery. 3. There is non-occluding plaque in the common carotid artery. 4. The vertebral artery flow is antegrade and normal. 5. The subclavian artery is within normal limits where visualized. Left Impression 1. There is <50% diameter reduction (approximately 20% by 2-D measurement) in the internal carotid artery with a peak velocity of 55 cm/sec and heterogeneous plaque. 2. There is non-occluding plaque in the external carotid artery. 3. There is non-occluding plaque in the common carotid artery. 4. The vertebral artery flow is antegrade and normal. 5. The subclavian artery is within normal limits where visualized. Conclusions Summary Carotid duplex scanning and color flow imaging were performed bilaterally. The arteries were adequately visualized. The bilateral internal carotid arteries had <50% hemodynamically insignificant stenosis (approximately 23% by 2-D measurement on the right, approximately 20% by 2-D measurement on the left) with heterogeneous plaque. The vertebral artery flow was antegrade and normal bilaterally. Signature Velocities are measured in cm/s ; Diameters are measured in cm Carotid Right Measurements + +----+----+-----+ +---- + + !Location !PSV !EDV !Angle!%Stenosis 2D!%Stenosis Doppler!Tortuosity ! + +----+----+-----+ +---- + + !Prox CCA !51.6!14.7!60 !! ! ! + +----+----+-----+ +---- + + !Dist CCA !42!7.86!60 !! ! ! + +----+----+-----+ +---- + + !Prox ICA !45.6!18.5!60 !! ! ! + +----+----+-----+ +---- + + !Dist ICA !51.1!13!60 !! ! ! + +----+----+-----+ +---- + + !Prox ECA !93.8!7.62!60 !! ! ! + +----+----+-----+ +---- + + !Vertebral!35.4!11!60 !! ! ! + +----+----+-----+ +---- + + !Prox Subclavian!60.9!!60 !! ! ! + +----+----+-----+ +---- + + - Additional Measurements:ICAPSV/CCAPSV 1.22.ICAEDV/CCAEDV 1.26. Carotid Left Measurements + +----+----+-----+ +---- + + !Location !PSV !EDV !Angle!%Stenosis 2D!%Stenosis Doppler!Tortuosity ! + +----+----+-----+ +---- + + !Prox CCA !72.1!15.8!60 !! ! ! + +----+----+-----+ +---- + + !Dist CCA !48.7!10.2!60 !! ! ! + +----+----+-----+ +---- + + !Prox ICA !44!21.1!60 !! ! ! + +----+----+-----+ +---- + + !Dist ICA !55.4!22.9!54 !! ! ! + +----+----+-----+ +---- + + !Prox ECA !95!17!60 !! ! ! + +----+----+-----+ +---- + + !Vertebral!20.9!!54 !! ! ! + +----+----+-----+ +---- + + !Prox Subclavian!51.1!!60 !! ! ! + +----+----+-----+ +---- + + - Additional Measurements:ICAPSV/CCAPSV 1.14.ICAEDV/CCAEDV 1.45. Narrative Performed At LAB - Carotid Duplex Study [facility] ECHO HEARTLAB [facility] Demographics Patient NamePRIYANKA VILLALOBOS Date of Study 09/05/2019 BASSEM SHORT 68 Visit [id number] Male of 1950 Referring Hanh Pereyra MD Room Number 2C26 Physician Hydraulic Mechanic Martha Kraft, Andrew melara, RVT Physician Procedure Type of Study: Cerebral: Carotid, CAROTID DOPPLER, IMANI ATERAL. Indications for Study:Pre op. Patient Status:STAT. Study Location:Portable. Technical Quality:Adequate visualization . Procedure Note Interface, External Ris In - 09/06/2019 2:07 PM PARENT TRAINER LAB - Carotid Duplex Study Demographics Patient Name PRIYANKA VILLALOBOS Chin e of Study 09/05/2019 JOE Age 68 Visit Number [id number] Gen eh Male Accession Number [id number] Chin e of 1950 Referring Hanh Pereyra MD Samara m Number [id number] Physician Hydraulic Mechanic Martha Kraft, Int erpreting Jocelyne Lo, T Gabriela lagos MD Procedure Type of Study: Cerebral: Carotid, CAROTID DOPPLER, IMANI ATERAL. Indications for Study:Pre op. Patient Status:STAT. Study Location:Portable. Technical Quality:Adequate visualization . Impressions Right Impression 1. There is <50% diameter reduction (tramaine roximately 23% by 2-D measurement) in the internal carotid artery with a pe ak velocity of 51 cm/sec and heterogeneous plaque. 2. There is non-occluding plaque in the external carotid artery. 3. There is non-occluding plaque in the common carotid artery. 4. The vertebral artery flow is antegrad e and normal. 5. The subclavian artery is within [place]ari[place] l limits where visualized. Left Impression 1. There is <50% diameter reduction (tramaine roximately 20% by 2-D measurement) in the internal carotid artery with a pe ak velocity of 55 cm/sec and heterogeneous plaque. 2. There is non-occluding plaque in the external carotid artery. 3. There is non-occluding plaque in the common carotid artery. 4. The vertebral artery flow is antegrad e and normal. 5. The subclavian artery is within mari[place] l limits where visualized. Conclusions Summary Carotid duplex scanning and color flow imaging were performed bilaterally. The arteries were adequately visualized . The bilateral internal carotid arteries had <50% hemodynamically insig nificant stenosis (approximately 23% by 2-D measurement on the right, ap proximately 20% by 2-D measurement on the left) with heterogeneous plaque. The vertebral artery flow was antegrade and normal bilaterally. Signature Velocities are measured in cm/s ; Diamet ers are measured in cm Carotid Right Measurements + +----+----+-----+------- -----+ + + !Location !PSV !EDV !Angle!%Stenos is 2D!%Stenosis Doppler!Tortuosity ! + +----+----+-----+------- -----+ + + !Prox CCA !51.6!14.7!60 ! ! ! ! + +----+----+-----+------- -----+ + + !Dist CCA !42 !7.86!60 ! ! ! ! + +----+----+-----+------- -----+ + + !Prox ICA !45.6!18.5!60 ! ! ! ! + +----+----+-----+------- -----+ + + !Dist ICA !51.1!13 !60 ! ! ! ! + +----+----+-----+------- -----+ + + !Prox ECA !93.8!7.62!60 ! ! ! ! + +----+----+-----+------- -----+ + + !Vertebral !35.4!11 !60 ! ! ! ! + +----+----+-----+------- -----+ + + !Prox Subclavian!60.9! !60 ! ! ! ! + +----+----+-----+------- -----+ + + - Additional Measurements:ICAPSV/CCAPS V 1.22.ICAEDV/CCAEDV 1.26. Carotid Left Measurements + +----+----+-----+------- -----+ + + !Location !PSV !EDV !Angle!%Stenos is 2D!%Stenosis Doppler!Tortuosity ! + +----+----+-----+------- -----+ + + !Prox CCA !72.1!15.8!60 ! ! ! ! + +----+----+-----+------- -----+ + + !Dist CCA !48.7!10.2!60 ! ! ! ! + +----+----+-----+------- -----+ + + !Prox ICA !44 !21.1!60 ! ! ! ! + +----+----+-----+------- -----+ + + !Dist ICA !55.4!22.9!54 ! ! ! ! + +----+----+-----+------- -----+ + + !Prox ECA !95 !17 !60 ! ! ! ! + +----+----+-----+------- -----+ + + !Vertebral !20.9! !54 ! ! ! ! + +----+----+-----+------- -----+ + + !Prox Subclavian!51.1! !60 ! ! ! ! + +----+----+-----+------- -----+ + + - Additional Measurements:ICAPSV/CCAPS V 1.14.ICAEDV/CCAEDV 1.45. Performing Organization Address City/[facility]/Zipcode Phone Number [facility] ECHO HEARTLAB [facility] CPACS Type and screen, automated (09/05/2019 2:58 PM PARENT TRAINER) ABO/RH AUTOMATED (BEAKER) O POSITIVE [facility] Ab Scrn NEGATIVE [facility] Specimen Blood Performing Organization Address [facility] Cent[facility]ode Phone Number [facility] [address] [place] [address] Troponin I (09/05/2019 4:51 AM PARENT TRAINER)Only the most recent of2 resultswithin the time period is included. Troponin I 0.01 0.00 - 0.03 ng/mL [facility] Specimen Blood Narrative Performed At Troponin I (TnI) levels must be interpreted [facility] in the context of the presenting symptoms and the clinical findings. Elevated TnI levels indicate myocardial damage, but are not specific for ischemic heart disease. Elevated TnI levels are seen in patients with other cardiac conditions (including myocarditis and congestive heart failure), and slight TnI elevations occur in patients with other conditions, including sepsis, renal failure, acidosis, acute neurological disease, and persistent tachyarrhythmia. Performing Organization Address [facility]/Zipcode Phone Number [facility] [place] [address] [place] [address] CENTER B-type Natriuretic Factor (BNP) (09/05/2019 4:51 AM PARENT TRAINER)Only the most recent of 2 resultswithin the time period is included. BNP 1,193 (H) 0 - 100 pg/mL [facility] Specimen Blood Performing Organization Address [facility]/Zipcode Phone Number [facility] [address] [address] CENTER ECHOCARDIOGRAM REPORT - SCAN (09/04/2019 9:22 PM PARENT TRAINER) Narrative Performed At This result has an attachment that is no t available. 2D Echo W/Doppler(CW/PW/Color) (09/04/2019 9:46 AM PARENT TRAINER) Ejection Fraction [facility] Specimen Narrative Performed At Transthoracic Echocardiography Report (T TE) [facility] ECHO HEARTLAB [facility] Demographics Patient Name PRIYANKA VILLALOBOS Date of Study 09/04/2019 JOE [id number] Gender Male Visit Number [id number] Unknown [id number] Room Number 1130 Number Date of Birth2Referring Physician Bennie Riley MD Age68 year(s)Hydraulic Mechanic Gilberto ThompsontIzoeda RudolphprePhysician BLAYNE Sanchez Procedure Type of Study TTE procedure:2DECHO W DOPPLER(CW/PW/COLOR) (Routine) Indications:Shortness of breath. Clinical History HGB 15.8 HCT 47.8 % CAD ARRHYTHMIA STROKE HTN DM STROKE Contrast Medium: Definity. Height: 64 inches Weight: 76.2 kg (168 lbs) BSA: 1.82 m^2 BMI: 28.84 kg/m^2 HR: 58 bpm BP: 165/100 mmHg Summary 1. LV is severely enlarged. All segments are severely hypokinetic. LVEF is severely reduced (25-29%) 2. RV chamber size is mildly enlarged . Global RV systolic function is normal 3. Grade 3 diastolic dysfunction (marked elevated LA pressure) 4. Estimated peak systolic PA pressure is 50-55 mmHg . The estimated RA pressure 11-15mmHg . Previous Study No prior exam available for comparison. Signature Findings Technical Quality: Technically adequate exam. Left Ventricle The left ventricle is chamber size (by vol index) is severely enlarged (male - LVED vol >100m l/m2). No rmal LV wall thickness. Al l of the LV segments are severely hypoki netic . Gl obal LV systolic function severely reduc ed . LV EF by Ma's method of disk assessmen t is se verely reduced (25-29%) . Th e LVEF was measured using Ma's bi-p diana me thod of disk . LV endocardium is adequately visualized wit h IV ul trasound enhancing agent. Gr brannon 3 diastolic dysfunction (marked elev ated LA pr essure). Left AtriumLA size is severely enlarged (>48 ml/m2) . Right VentricleRV chamber size is mildly enlarged . Gl obal RV systolic function is normal . Right Atrium RA cavity size is mildly enlarged . Atrial SeptumIV saline contrast injection was negative for a PF O (p atent foramen ovale) at rest and post Va lsalva . Aortic Valve Mild AoV cusp thickening. A trace of aortic regurgitation. Mitral Valve Mild MV leaflet thickening. Mi ld mitral annular calcification. Mi ld mitral regurgitation. Tricuspid ValveMild TV leaflet thickening. Es timated peak systolic PA pressure is 50- 55 mmHg . Pulmonic Valve Normal PV structure and function. Mi ld pulmonary regurgitation. AortaAortic root size (SInus of Valsalva diameter) i s no rmal . Proximal ascending aorta size is normal . PericardiumNo significant pericardial effusion is visualized. IVC/SVC/PA/PV/PleuralPulmonary vein flow is consistent with increased LA P . Th e estimated RA pressure by IVC dynamics 11-15mmHg . Th e inferior vena cava size is increased . Chambers/Structures Left Atrium LA Volume: 105.62 mlLA Area: 29.82 cm^2 LA Vol. Index: 58 ml/m^2 Left Ventricle LVIDd: 6.25 cm LV Septum Diastolic: 0.92 cm LV PW Diastolic: 0.97 cm LVEDV Ma's:256.28 ml LVESV Ma's:188.05 ml LVEF Ma's: 26.6 % LVEDVI: 141 ml/m^2 LVESVI: 103 ml/m^2 LVOT Diameter: 2.03 cm Right Atrium RA Vol. (Sngl Plane): 6 2.98 ml Right Ventricle TAPSE: 1.65 cm Aorta Ao Root S of Jenny.: 3.07 cmAscending Aorta: 3.47 cm Doppler/Quantitative Measurements Mitral Valve MV Peak E-Wave: 1 m/s MV Peak A-Wave: 0.18 m/s E/A Ratio: 5. 53 Peak Gradient : 4 mmHg Deceleration Time: 104.8 msec MV Leandro. Peak: Tissue Doppler E' Septal Velocity: 0.03 m/sE/E': 28.64 E' Lateral Velocity: 0.08 m/s Aortic Valve Peak Velocity: 1.12 m/s Mean Velocity: 0.77 m/s Peak Gradient: 5 mmHg Mean Gradient: 2.6 mmHg AV Area (continuity): 2.87 cm^2 AV VTI: 18.74 cm AV DVI: 0.89 LVOT Peak Velocity: 0.96 m/s Peak Gradient: 3.7 mmHg Mean Velocity: 0.61 m/s Mean Gradient: 1.85 mmHg LVOT Diameter: 2.03 cmLVOT VTI: 16.63 cm LVOT Area: 3.24 cm^2LVOT SV:53.8 ml LVOT CO: 3.12 l/min LVOT CI: 1.71 l/min/m^2 Tricuspid Valve TR Velocity: 3.27 m/s TR Gradient: 42.84 mmHg Procedure Note Interface, External Ris In - 09/04/2019 3:52 PM PARENT TRAINER Transthoracic Echocardiography Report (TTE) Demographics Patient Name PRIYANKA VILLALOBOS Date o f Study 09/04/2019 JOE Gender Male Visit Number [id number] Race Unknown Room [place] [id number] Number Date of 1950 Referr ing Physician Bennie Riley MD Age 68 year(s) Sonogr apher Gilberto Dianne Transformer Assembly Supervisor La Nena Conley Interp reting Tiffany Greco, Ralph gonzales MD Procedure Type of Study TTE procedure:2DECHO W DOPPLE R(CW/PW/COLOR) (Routine) Indications:Shortness of breath. Clinical History HGB 15.8 HCT 47.8 % CAD ARRHYTHMIA STROKE HTN DM STROKE Contrast Medium: Definity. Height: 64 inches Weight: 76.2 kg (168 l bs) BSA: 1.82 m^2 BMI: 28.84 kg/m^2 HR: 58 bpm BP: 165/100 mmHg Summary 1. LV is severely enlarged. All segment s are severely hypokinetic. LVEF is severely reduced (25-29%) 2. RV chamber size is mildly enlarged . Global RV systolic function is normal 3. Grade 3 diastolic dysfunction (marke d elevated LA pressure) 4. Estimated peak systolic PA pressure is 50-55 mmHg . The estimated RA pressure 11-15mmHg . Previous Study No prior exam available for comparison. Signature Findings Technical Quality: Technically adequate exam. Left Ventricle The left ventric le is chamber size (by vol index) is severely enla rged (male - LVED vol >100ml/m2). Normal LV wall t hickness. All of the LV se gments are severely hypokinetic . Global LV systol ic function severely reduced . LVEF by Ma' s method of disk assessment is severely reduced (25-29%) . The LVEF was rochelle sured using Ma's bi-plane method of disk . LV endocardium i s adequately visualized with IV ultrasound enhan cing agent. Grade 3 diastoli c dysfunction (marked elevated LA pressure). Left Atrium LA size is sever rola enlarged (>48 ml/m2) . Right Ventricle RV chamber size is mildly enlarged . Global RV systol ic function is normal . Right Atrium RA cavity size i s mildly enlarged . Atrial Septum IV saline contra st injection was negative for a PFO (patent foramen ovale) at rest and post Valsalva . Aortic Valve Mild AoV cusp th ickening. A trace of aorti c regurgitation. Mitral Valve Mild MV leaflet thickening. Mild mitral jonatan lar calcification. Mild mitral regu rgitation. Tricuspid Valve Mild TV leaflet thickening. Estimated peak s ystolic PA pressure is 50-55 mmHg . Pulmonic Valve Normal PV struct ure and function. Mild pulmonary r egurgitation. Aorta Aortic root size (SInus of Valsalva diameter) is normal . Proxima l ascending aorta size is normal . Pericardium No significant p ericardial effusion is visualized. IVC/SVC/PA/PV/Pleural Pulmonary vein f low is consistent with increased LAP . The estimated RA pressure by IVC dynamics 11-15mmHg . The inferior josy a cava size is increased . Chambers/Structures Left Atrium LA Volume: 105.62 ml LA Area: 29.82 cm^2 LA Vol. Index: 58 ml/m^2 Left Ventricle LVIDd: 6.25 cm LV Septum Diastolic: 0.92 cm LV PW Diastolic: 0.97 cm LVEDV Ma's:256.28 ml LVESV Ma's:188.05 ml LVEF Ma's: 26.6 % LVEDVI: 141 ml/m^2 LVESVI: 103 ml/m^2 LVOT Diameter: 2.03 cm Right Atrium RA Vol. (Sngl Plane): 62.98 ml Right Ventricle TAPSE: 1.65 cm Aorta Ao Root S of Jenny.: 3.07 cm Ascending Aorta: 3.47 cm Doppler/Quantitative Measurements Mitral Valve MV Peak E-Wave: 1 m/s M V Peak A-Wave: 0.18 m/s E /A Ratio: 5.53 P eak Gradient: 4 mmHg D eceleration Time: 104.8 msec MV Leandro. Peak: Tissue Doppler E' Septal Velocity: 0.03 m/s E /E': 28.64 E' Lateral Velocity: 0.08 m/s Aortic Valve Peak Velocity: 1.12 m/s Mean Velocity: 0.77 m/s Peak Gradient: 5 mmHg Mean Gradient: 2.6 mmHg AV Area (continuity): 2.87 cm^2 AV VTI: 18.74 cm AV DVI: 0.89 LVOT Peak Velocity: 0.96 m/s Pea k Gradient: 3.7 mmHg Mean Velocity: 0.61 m/s Rochelle n Gradient: 1.85 mmHg LVOT Diameter: 2.03 cm LVO T VTI: 16.63 cm LVOT Area: 3.24 cm^2 LVO T SV:53.8 ml LVOT CO: 3.12 l/min LVO T CI: 1.71 l/min/m^2 Tricuspid Valve TR Velocity: 3.27 m/s TR Gradient: 42.84 mmHg Performing Organization Address City/[facility] Phone Number [facility] Hepatic function panel (09/04/2019 5:05 AM PARENT TRAINER) Protein, Total 6.8 6.0 - 8.3 gm/dL [facility] Albumin 3.8 3.5 - 5.0 g/dL [facility] Total Bilirubin 1.7 (H) 0.2 - 1.2 mg/dL [facility] Bilirubin, Direct 0.6 (H) 0.1 - 0.5 mg/dL [facility] Alkaline Phosphatase 84 40 - 150 U/L [facility] AST 12 5 - 34 U/L [facility] ALT 20 6 - 55 U/L [facility] Specimen Blood Narrative Performed At Specimen slightly icteric [facility] Performing Organization Address [facility] Centercode Phone Number [address] [address] CENTER TSH/Free T4 If Indicated (09/03/2019 10:47 PM PARENT TRAINER) TSH 1.36 0.35 - 4.94 uIU/mL [facility] Specimen Blood Performing Organization Address City/[facility]/Zipcode Phone Number [place] [phone] [place] [address] CENTER after 06/01/2019 Insurance Payer Benefit Plan / Group Subscriber ID Type Phone A [facility] [employer] - MEDICARE AARP/MEDICARE COMPLETE xxxxxxxxx MGD CARE Advance Directives For more information, please contact:[facility] [place] [place], [place] [phone] Code Status Date Activated Date Inactivated Comments Full Code 09/05/2019 1:05 PM 09/13/2019 4:01 PM This code status was determined by: Patient Full Code 09/03/2019 9:21 PM 09/05/2019 1:05 PM This code status was determined by: Patient
--- OUTSIDE RECORDS SUMMARY | 2020-06-01 09:43 | XMS REPORT | Continuity of Care Document ---
:1950 Author Organization [facility] t Address [address] [place] [id number] Care Team Providers Name Role Phone Belinda Siddiqui Primary Care Physician Unavailable Bryant CISNEROS, Neal Attending Clinician Dmitry CISNEROS Attending Clinician Jazmyn Orozco MD Attending Clinician Radha English MD Attending Clinician Margaret CISNEROS Attending Clinician Unavailable DMITRY Attending Clinician Unavailable DMITRY Admitting Clinician Unavailable Payers Payer Name Policy Type Policy Number Effective Expiration Source Date Date [facility] - xxxxxxxxx [facility] COMPLETExxxxxxxxx Center Problems Condition Condition Condition Status Onset Resolution Last Treating Co mments Source Name Details Category Date Date Treatment Clinician Date S/P CABG x S/P CABG x Disease Active 2018-[address] 3 3 11-06 [facility] Medical 00 [place] Acute Acute Disease Active 2018-[address] [facility] respirator respirator 11-06 [facility] kes - y y 00:00: Medical insufficie insufficie 00 Ce nter ncy ncy On On Disease Active 2018-[address] [facility] mechanical mechanical 11-06 Emma kes - ly ly 00:00: Medical assisted assisted 00 Center ventilatio ventilatio n n Cardiogeni Cardiogeni Disease Active 2018-[address] c shock c shock 11-06 [facility] - 00:[facility]: Medical 00 [place] Acute Acute Disease Active 2018-[address] [facility] prerenal prerenal 11-06 [facility] - azotemia azotemia 00:00: Medica l 00 Center SIRS SIRS Disease Active 2019-[address] [facility] [address] (systemic (systemic 11-06 [facility] - inflammato inflammato 00:00: Me dical ry ry 00 [place] response response syndrome) syndrome) Acute on Acute on Disease Active 2018-10 [facility] chronic chronic [facility] - 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, NYHA CHF, NYHA class 4 class 4 Ischemic Ischemic Disease Active 2018-10 [facility] cardiomyop cardiomyop 11-04 kes - athy athy 00:00: Medical 00 Center Multi-vess Multi-vess Disease Active 2018-[address] el el 11-04 [facility] - coronary coronary 00:00: Medica l artery artery 00 Center stenosis stenosis Atheroscle Atheroscle Disease Active 2018-[address] rosis of rosis of 11-04 [facility] [place] 00:00: Medical coronary coronary 00 Center artery of artery of [place] heart with heart with unstable unstable angina angina pectoris pectoris DM DM Disease Active 2018-[address] [facility] (diabetes (diabetes 11-04 [facility] - mellitus), mellitus), 00:00: Me dical type 2, type 2, 00 Center uncontroll uncontroll ed, periph ed, perip vascular vascular complic complic Hypertensi Hypertensi Disease Active 2018-[address] on, on, 11-04 [facility] - essential essential 00:00: Medi reyna 00 Center Hypertensi Hypertensi Disease Active 2018-[address] ve heart ve heart 11-04 kes - disease disease 00:00: Medical with acute with acute 00 Ce nter on chronic on chronic 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 Social History Social Habit Start Date Stop Date Quantity Comments Source Sex Assigned At [facility] Smoking Status Start Date Stop Date Source [facility] Medications Ordered Filled Start Stop Current Ordering Indication Dosage Frequency Signature Comments Components Source Medication Medication Date Date Medication? Clinician (SIG) Name Name tamsulosin 2018-10 Yes .4mg QD Take 1 [facility] (FLOMAX) 11-15 capsule [facility] - 0.4 mg Cap 00:00: (0.4 mg Medi reyna 24 hr 00 total) by Center capsule mouth daily. aspirin 81 2018-10- No 81mg QD Take [address] [facility] MG EC 11-15 tablet (81 [facility] - tablet 00:00: 23:59 mg total) Medic al 00 :00 by mouth Center daily. clopidogrel 2018-10- No 75mg QD Take [address] [facility] (PLAVIX) 75 11-15 tablet (75 L ukes - mg tablet 00:00: 23:59 mg total) Me dical 00 :00 by mouth Center daily. metoprolol 2018-10- high blood 100mg QD Take [address] (TOPROL-XL) 11-14 pressure mg by Emma kes - 100 MG 24 11:01: 00:00 mouth Medica l hr tablet 56 :00 daily. Center glimepiride 2018-10- No 2mg Take [address] [facility] (AMARYL) 2 11-14 by mouth 3 Emma kes - MG tablet 11:01: 00:00 (three) Medi reyna 56 :00 times Center daily before meals. glimepiride 2018-10- No 2mg Q.5D Take [address] (AMARYL) 2 11-14 tablet (2 Thee es - MG tablet 00:00: 23:59 mg total) Me dical 00 :00 by mouth 2 Center (two) times daily. atorvastati 2018-10- No 40mg QD Take [address] [facility] n (LIPITOR) 11-14 tablet (40 L ukes - 40 MG 00:00: 23:59 mg total) Medica l tablet 00 :00 by mouth Center nightly. colchicine 2018-10- No .6mg QD Take [address] [facility] (COLCRYS) 11-14 tablet [facility] - 0.6 mg 00:00: 23:59 (0.6 mg Medical tablet 00 :00 total) by Center mouth daily. metoprolol 2018-10- No 25mg Q.5D Take [address] (LOPRESSOR) 11-14 tablet (25 L ukes - 25 MG 00:00: 23:59 mg total) Medica l tablet 00 :00 by mouth 2 Center (two) times daily. metFORMIN 2018-10 Yes type 2 425mg Take [address] (GLUCOPHAGE - diabetes mg by Thee es - ) 500 MG 21:34: mellitus mouth 3 Me dical tablet 40 (three) Center times daily before meals . doxazosin 2018-10 Yes 2mg Q.5D Take [address] [address] (CARDURA) 2 1-26 by mouth 2 Emma kes - MG tablet 21:34: (two) Medical 40 times Center daily. telmisartan 2018-10 Yes 40mg Q.5D Take [address] [facility] (MICARDIS) 26 by mouth 2 Thee es - 40 MG 21:34: (two) Medical tablet 40 times Center daily. Vital Signs Vital Name Observation Time Observation Value Comments Source Systolic blood 2019-09-20 13:40:00 113 mm[Hg] [facility] Diastolic blood 2019-09-20 13:40:00 85 mm[Hg] [facility] S [facility] Heart rate 2019-09-20 13:40:00 79 /min [facility] Body temperature 2019-09-20 13:40:00 37 Radha [facility] Respiratory rate 2019-09-20 13:40:00 18 /min [facility] Body height 2019-09-20 13:40:00 165.1 cm [facility] Body weight Measured 2019-09-20 13:40:00 77.565 kg [facility] BMI 2019-09-20 13:40:00 28.46 kg/m2 [facility] Oxygen saturation in 2019-09-20 13:40:00 100 /min [facility] Arterial blood by Medical Ce nter Pulse oximetry Procedures Procedure Date / Time Performing Clinician Source Performed REPORT OF PROCEDURE - 2019-09-17 09:20:16 Provider, Default [facility] ENDOSCOPY SCAN Scanning [facility] RHYTHM STRIP - SCAN 2019-09-17 09:20:07 Provider, Default [facility] Scanning [facility] RHYTHM STRIP - SCAN 2019-09-17 09:20:05 Provider, Default [facility] PERIPHERAL VASCULAR REPORT 2019-09-13 21:20:44 Provider, Default [facility] - [facility] POCT-GLUCOSE METER 2019-09-13 07:37:00 NeDameon fitch [facility] BASIC METABOLIC PANEL (7) 2019-09-13 04:17:00 Dameon English [facility] CBC W/PLT COUNT & AUTO 2019-09-13 04:17:00 Dameon English [facility] S [facility] POCT-GLUCOSE METER 2019-09-12 17:24:00 Dameon English [facility] POCT-GLUCOSE METER 2019-09-12 12:42:00 NeDameon fitch [facility] VENOUS DOPPLER LEGS 2019-09-12 09:12:[address] [facility] POCT-GLUCOSE METER 2019-09-12 08:07:00 TamekaDameon [facility] BASIC METABOLIC PANEL (7) 2019-09-12 04:36:00 Dameon English [facility] CBC W/PLT COUNT & AUTO 2019-09-12 04:36:00 Dameon English [facility] S [facility] POCT-GLUCOSE METER 2019-09-11 21:29:00 Dameon English [facility] ECHOCARDIOGRAM REPORT - 2019-09-11 21:10:13 Provider, Default [facility] POCT-GLUCOSE METER 2019-09-11 17:36:00 Dameon English [facility] POCT-GLUCOSE METER 2019-09-11 14:02:00 NeDameon fitch [facility] POCT-GLUCOSE METER 2019-09-11 08:25:00 Neconstantine Dameon Le [facility] POCT-GLUCOSE METER 2019-09-10 21:27:00 Neconstantine Dameon [facility] POCT-GLUCOSE METER 2019-09-10 15:35:00 Joe Orozco [facility] 2D ECHO W/ DOPPLER 2019-09-10 14:46:12 Mirta Fernandez [facility] (CW/PW/COLOR) [facility] POCT-GLUCOSE METER 2019-09-10 12:13:00 Joe Orozco malik [facility] CBC (HEMOGRAM ONLY) 2019-09-10 09:59:[address] [facility] BASIC METABOLIC PANEL (7) 2019-09-10 09:59:00 Lucien Hurtado [facility] MAGNESIUM 2019-09-10 09:59:00 Lucien Hurtado [facility] POCT-GLUCOSE METER 2019-09-10 07:57:00 Joe Orozco malik [facility] POCT-GLUCOSE METER 2019-09-09 21:34:00 Pam Joe [facility] POCT-GLUCOSE METER 2019-09-09 19:38:00 Joe Orozco [facility] POCT-GLUCOSE METER 2019-09-09 15:50:00 Lulueda Joe [facility] POCT-GLUCOSE METER 2019-09-09 12:20:00 Pam Joe [facility] ECG 12-LEAD 2019-09-09 11:35:33 Unknown, Hl7 [facility] POCT-GLUCOSE METER 2019-09-09 07:52:00 Anyalaura Joe [facility] ECG 12-LEAD 2019-09-09 06:47:34 Unknown, Hl7 [facility] BASIC METABOLIC PANEL (7) 2019-09-09 06:06:00 Datar, Rory velasquez [facility] CALCIUM, IONIZED 2019-09-09 06:06:00 Oralia Gonsalez [facility] CBC W/PLT COUNT & AUTO 2019-09-09 06:06:00 DatarRory [facility] XR CHEST 1 VIEW 2019-09-09 05:50:[address] [facility] PORTABLE/BEDSIDE [facility] POCT-GLUCOSE METER 2019-09-08 21:34:00 Joe Orozco zoedmitriy [facility] POCT-GLUCOSE METER 2019-09-08 17:17:00 Pam Joe [facility] POCT-GLUCOSE METER 2019-09-08 13:16:00 Joe Orozco [facility] POCT-GLUCOSE METER 2019-09-08 08:02:00 Pam Joe [facility] XR CHEST 1 VIEW 2019-09-08 07:22:00 Datar, Rory Valladares [facility] PORTABLE/BEDSIDE [facility] ECG 12-LEAD 2019-09-08 05:47:05 Datar, Rory Valladares [facility] MAGNESIUM 2019-09-08 05:46:00 GulMonico [facility] PHOSPHORUS 2019-09-08 05:46:00 Gul [facility] BASIC METABOLIC PANEL (7) 2019-09-08 05:46:00 Datar, Rory velasquez [facility] CALCIUM, IONIZED 2019-09-08 05:46:00 Oralia Gonsalez [facility] CBC W/PLT COUNT & AUTO 2019-09-08 05:46:00 Datar, Rory Hernandez [facility] POCT-GLUCOSE METER 2019-09-08 00:01:00 Joe Orozcodmitriy [facility] TRANSFUSION SERVICE REPORT 2019-09-07 17:51:56 Provider, Clint [facility] - SCAN Scanning [facility] BASIC METABOLIC PANEL (7) 2019-09-07 11:30:00 Raulito Milton [facility] MAGNESIUM 2019-09-07 11:30:00 Raulito Milton [facility] PHOSPHORUS 2019-09-07 11:30:00 Raulito Milton [facility] ECG 12-LEAD 2019-09-07 07:47:12 Datar, Rory Valladares [facility] POCT-GLUCOSE METER 2019-09-07 07:22:00 Joe Orozco [facility] MAGNESIUM 2019-09-07 03:34:00 GulMonico [facility] PHOSPHORUS 2019-09-07 03:34:00 [facility] BASIC METABOLIC PANEL (7) 2019-09-07 03:34:00 Datar, Rory velasquez [facility] BLOOD GAS, ARTERIAL 2019-09-07 03:34:00 Wallace [facility] CALCIUM, IONIZED 2019-09-07 03:34:00 Wallace [facility] OXYGEN SATURATION, 2019-09-07 03:34:00 [facility] LACTIC ACID, ARTERIAL 2019-09-07 03:34:00 Wallace Oralia [facility] CBC W/PLT COUNT & AUTO 2019-09-07 03:34:00 Datar, Rory Hernandez [facility] XR CHEST 1 VIEW 2019-09-07 03:16:00 Datar, Rory Valladares [facility]/BEDSIDE [facility] TRANSFUSION SERVICE REPORT 2019-09-06 17:50:11 Provider, Clint [facility] - - SCAN Scanning [facility] BLOOD GAS, ARTERIAL 2019-09-06 15:56:00 DatarRory [facility] XR CHEST 1 VIEW 2019-09-06 12:08:00 Datar, Rory Valladares [facility] PORTABLE/BEDSIDE [facility] XR CHEST 1 VIEW 2019-09-06 11:55:00 [facility] BLOOD GAS, ARTERIAL 2019-09-06 11:46:00 Gul [facility] CALCIUM, IONIZED 2019-09-06 11:46:00 Datar, Rory Valladares [facility] HGB/HCT (H&H) - STAT LAB 2019-09-06 11:46:00 Datar, Rory Rose Marieeva [facility] SODIUM NA-STAT LAB 2019-09-06 11:46:00 Datar, [facility] POTASSIUM-STAT LAB 2019-09-06 11:46:00 Datar, [facility] GLUCOSE-STAT LAB 2019-09-06 11:46:00 Datar, [facility] OXYGEN SATURATION, 2019-09-06 11:46:00 Datar, Rory Rose [facility] LACTIC ACID, ARTERIAL 2019-09-06 11:46:00 Datar, [facility] Jacquelyn I [facility] BASIC METABOLIC PANEL (7) 2019-09-06 11:45:00 [facility] 2019-09-06 11:45:00 GulSurajMonico[facility] COMPREHENSIVE METABOLIC 2019-09-06 11:45:00 Datar, Roryalexia Trottereva [facility] MAGNESIUM 2019-09-06 11:45:00 Datar, [facility] PROTHROMBIN TIME/INR 2019-09-06 11:45:00 Datar, [facility] APTT 2019-09-06 11:45:00 Datar, [facility] Jacquelyn [facility] FIBRINOGEN 2019-09-06 11:45:00 Datar, [facility] W/[facility]T COUNT & AUTO 2019-09-06 11:45:00 Datar, Rory Valladares [facility] POCT-ACT 2019-09-06 10:33:00 Joe Orozco [facility] CALCIUM, IONIZED 2019-09-06 10:32:56 Regan Patel [facility] BLOOD GAS, ARTERIAL 2019-09-06 10:32:56 Regan Patel [facility] SODIUM NA-STAT LAB 2019-09-06 10:32:56 Regan Patel [facility] POTASSIUM-STAT LAB 2019-09-06 10:32:56 Regan Patel [facility] GLUCOSE-STAT LAB 2019-09-06 10:32:56 Regan Patel [facility] HGB/HCT (H&H) - STAT LAB 2019-09-06 10:32:56 Regan Patel [facility] POCT-ACT 2019-09-06 09:40:00 Joe Orozco [facility] BLOOD GAS, ARTERIAL 2019-09-06 09:37:26 [facility] SODIUM NA-STAT LAB 2019-09-06 09:37:26 [facility] 2019-09-06 09:37:26 [facility] GLUCOSE-STAT LAB 2019-09-06 09:37:26 [facility] HGB/HCT (H&H) - STAT LAB 2019-09-06 09:37:26 [facility] Lucien [facility] ANESTHESIA MARIEL 2019-09-06 09:19:39 Regan Patel [facility] POCT-ACT 2019-09-06 09:09:00 Joe Orozco [facility] BLOOD GAS, ARTERIAL 2019-09-06 09:07:27 Bryant [facility] SODIUM NA-STAT LAB 2019-09-06 09:07:27 Bryant Cabell [facility] POTASSIUM-STAT LAB 2019-09-06 09:07:27 [facility] GLUCOSE-STAT LAB 2019-09-06 09:07:27 [facility] HGB/HCT (H&H) - STAT LAB 2019-09-06 09:07:27 Lucien Hurtado [facility] POCT-ACT 2019-09-06 08:39:00 Joe Orozcomad [facility] CALCIUM, IONIZED 2019-09-06 08:38:06 Regan Patel [facility] BLOOD GAS, ARTERIAL 2019-09-06 08:38:06 Regan Patel [facility] SODIUM NA-STAT LAB 2019-09-06 08:38:06 Regan Patel [facility] POTASSIUM-STAT LAB 2019-09-06 08:38:06 Regan Patel [facility] GLUCOSE-STAT LAB 2019-09-06 08:38:06 Regan Patel [facility] HGB/HCT (H&H) - STAT LAB 2019-09-06 08:38:06 Regan Patel [facility] CALCIUM, IONIZED 2019-09-06 08:17:46 Regan Patel [facility] BLOOD GAS, ARTERIAL 2019-09-06 08:17:46 Regan Patel [facility] SODIUM NA-STAT LAB 2019-09-06 08:17:46 Regan Patel [facility] POTASSIUM-STAT LAB 2019-09-06 08:17:46 Regan Patel [facility] GLUCOSE-STAT LAB 2019-09-06 08:17:46 Regan Patel [facility] HGB/HCT (H&H) - STAT LAB 2019-09-06 08:17:46 Regan Patel [facility] POCT-ACT 2019-09-06 08:06:00 Joe Orozco [facility] BYPASS,AORTO CORONARY 2019-09-06 07:30:00 Lucien Hurtado [facility] - JASVIR/SVG [facility] ENDOSCOPIC HARVEST,VEIN 2019-09-06 07:30:[address] [facility] PREPARE RBC 2019-09-06 07:11:00 Lucien Hurtado [facility] HEMOGLOBIN A1C 2019-09-06 02:33:00 Koffi, [facility] PT/APTT 2019-09-06 02:33:[address] [facility] PROTHROMBIN TIME/INR 2019-09-06 02:33:00 Koffi [facility] LIPID PANEL 2019-09-06 02:33:[address] [facility] PHOSPHORUS 2019-09-06 02:33:[address] [facility] BASIC METABOLIC PANEL (7) 2019-09-06 02:33:00 [facility] ABORH, MANUAL 2019-09-06 02:33:00 Claire Nassar [facility] CBC W/PLT COUNT & AUTO 2019-09-06 02:33:00 Joe Orozco [facility] POCT-GLUCOSE METER 2019-09-05 21:36:00 Joe Orozco [facility] CAROTID DOPPLER BILATERAL 2019-09-05 17:30:00 Maribel Pereyra [facility] POCT-GLUCOSE METER 2019-09-05 16:55:00 Joe Orozco [facility] ECG 12-LEAD 2019-09-05 15:20:09 Silviano Faye [facility] TYPE AND SCREEN, AUTOMATED 2019-09-05 14:58:00 Beena Thompson [facility] XR CHEST 1 VIEW 2019-09-05 13:11:[address] [facility] PORTABLE/BEDSIDE [facility] POCT-GLUCOSE METER 2019-09-05 12:02:00 Joe Orozco [facility] POCT-GLUCOSE METER 2019-09-05 08:31:00 Joe Orozco [facility] HEMOGLOBIN A1C 2019-09-05 04:51:[address] [facility] PT/APTT 2019-09-05 04:51:[address] [facility] PROTHROMBIN TIME/INR 2019-09-05 [facility]:51[facility] 2019-09-05 04:51:[address] [facility] PHOSPHORUS 2019-09-05 04:51:[address] [facility] BASIC METABOLIC PANEL (7) 2019-09-05 04:51:00 Joe Orozco malik [facility] B-TYPE NATRIURETIC FACTOR 2019-09-05 04:51:[address] [facility] (BNP) [facility] TROPONIN I 2019-09-05 04:51:00 Mirta Fernandez [facility] MAGNESIUM 2019-09-05 04:51:00 [facility] CBC W/PLT COUNT & AUTO 2019-09-05 04:51:00 Joe Orozco [facility] POCT-GLUCOSE METER 2019-09-04 21:33:00 [facility] ECHOCARDIOGRAM REPORT - 2019-09-04 21:22:37 Provider, Default [facility] MAGNESIUM 2019-09-04 20:19:00 [facility] POCT-GLUCOSE METER 2019-09-04 17:34:00 [facility] POCT-GLUCOSE METER 2019-09-04 13:07:00 Joe Orozco malik [facility] 2D ECHO W/ DOPPLER 2019-09-04 09:46:26 [facility] POCT-GLUCOSE METER 2019-09-04 07:42:00 Bennie Riley [facility] HEMOGLOBIN A1C 2019-09-04 05:05:00 [facility] PT/APTT 2019-09-04 05:05:00 [facility] HEPATIC FUNCTION PANEL 2019-09-04 05:05:00 [facility]/INR 2019-09-04 05:05:00 [facility] LIPID PANEL 2019-09-04 05:05:[address] [facility] PHOSPHORUS 2019-09-04 05:05:[address] [facility] BASIC METABOLIC PANEL (7) 2019-09-04 05:05:00 Koffi [facility] MAGNESIUM 2019-09-04 05:05:00 [facility] TROPONIN I 2019-09-03 22:47:00 [facility] COMPREHENSIVE METABOLIC 2019-09-03 22:47:00 Jeanette Rain [facility] B-TYPE NATRIURETIC FACTOR 2019-09-03 22:47:00 [facility] TSH/FREE T4 IF INDICATED 2019-09-03 22:47:00 Jeanette Rain [facility] MAGNESIUM 2019-09-03 22:47:00 [facility] CBC W/PLT COUNT & AUTO 2019-09-03 22:47:00 [facility] POCT-GLUCOSE METER 2019-09-03 22:05:00 Bennie Riley [facility] ECG 12-LEAD 2019-09-03 21:53:34 [facility] Plan of Care Planned Activity Planned Date Details Comments Source Future Scheduled 2020-06-09 INFLUENZA VACCINE (#1) [facility] - Test 00:00:00 [code = INFLUENZA Medical Ce nter VACCINE (#1)] Future Scheduled 2020-03-[address] [facility] - Test 00:00:00 WELLNESS (YEAR 2 or Medical Center FIRST YEAR if no IPPE) [code = MEDICARE ANNUAL WELLNESS (YEAR 2 or FIRST YEAR if no IPPE)] Future Scheduled 2020-03-[address] [facility] - Test 00:00:00 measurement Medical Center (procedure) [code = 94432573] Future Scheduled 2016 P[address]UMOCOCCAL [address] - Test 00:00:00 LOW/MEDIUM RISK (1 of [facility] 2 - PCV13) [code = PNEUMOCOCCAL 65+ LOW/MEDIUM RISK (1 of 2 - PCV13)] Future Scheduled [address] DIABETIC EYE EXAM [facility] - Test 00:00:00 [code = DIABETIC EYE Medical Center EXAM] Future Scheduled [address] [facility] - Test 00:00:00 examination Medical Center (regime/therapy) [code = 719844193] Future Scheduled 1961 Urine screening for [facility] - Test 00:00:00 protein (procedure) Medical Center [code = 980708078] Future Scheduled [address] [facility] - Test 00:00:00 malignant neoplasm of [facility] colon (procedure) [code = 025291079] Results Test Description Test Time Test Comments Results Result Comments Source POC-Glucose meter 2019-09-13 07:49:00 Test Item Value Reference Range Interpretation Comme nts POC-Glucose Meter (test code = 66 mg/dL 70-110 L : TESTED AT [facility] [address] [facility] 15[address]) [facility], [address] [address]: Cloud Systems Architect/Techni alfonzo ID = [id number] for WILSON, BAILEY Lab Interpretation (test code = Abnormal 47334-7) [facility] [id number] 07:49:00 Test Item Value Reference Range Interpretation Comments POC-GLUCOSE METER 66 mg/dL 70-110 L : TESTED A T [facility] [address] (BEAKER) (test code = BERTNE R [facility], 1538) [address]: [employer] Architect/Techni alfonzo ID = [id number] for FARRAH EZ, BAILEY Basic Metabolic [id number] 05:26:00 Test Item Value Reference Range Interpretation Comments Sodium (test code = 136 meq/L 085-177 4484-2) Potassium (test code = 3.5 meq/L 3.5-5.1 2823-3) Chloride (test code = 105 meq/L 98-107 2075-0) CO2 (test code = 25 meq/L 22-29 8-9) BUN (test code = 13 mg/dL 7-21 3094-0) Creatinine (test code = 0.75 mg/dL 0.57-1.25 2160-0) Glucose (test code = 61 mg/dL 70-105 L 2345-7) Calcium (test code = 8.4 mg/dL 8.4-10.2 19320-4) EGFR (test code = 104 mL/min/1.73 [place] [address]-7) NOT ACCURATE CREATININE CLEARANCE IN PREDICTING GLOMERULAR FILTRATION RATE . ESTIMATED GFR I S NOT APPLICABLE FOR DIALYSIS PATIEN TS. Lab Interpretation Abnormal (test code = 83586-3) [facility] METABOLIC [id number] 05:26:00 Test Item Value Reference Range Interpretation Comments SODIUM (BEAKER) 136 meq/L 136-145 (test code = 381) POTASSIUM (BEAKER) 3.5 meq/L 3.5-5.1 (test code = 379) CHLORIDE (BEAKER) 105 meq/L 98-107 (test code = 382) CO2 (BEAKER) (test 25 meq/L 22-29 code = 355) BLOOD UREA NITROGEN 13 mg/dL 7-21 (BEAKER) (test code = 354) CREATININE (BEAKER) 0.75 mg/dL 0.57-1.25 (test code = 358) GLUCOSE RANDOM 61 mg/dL 70-105 L (BEAKER) (test code = 652) CALCIUM (BEAKER) 8.4 mg/dL 8.4-10.2 (test code = 697) EGFR (BEAKER) (test 104 mL/min/1.73 ESTIM ATED GFR IS code = 1092) sq m NOT ACCURATE CREATININE CLEARANCE IN PREDICTING GLOMERULAR FILTRATION RATE . ESTIMATED GFR I S NOT APPLICABLE FOR DIALYSIS PATIEN TS. CBC with platelet count + automated [id number] 04:56:00 Test Item Value Reference Range Interpretation Comments WBC (test code = 6690-2) 8.0 3.5- 10.5 K/L RBC (test code = 789-8) 4.24 4.63- 6.08 M/L L MCHC (test code = 786-4) 33.4 32.3- 36.5 GM/DL L Hematocrit (test code = 4544-3) 37.4 % 40.1-51 L MCV (test code = 787-2) 88.2 fL 79-92.2 MCH (test code = 785-6) 29.5 pg 25.7-32.2 RDW (test code = 788-0) 13.8 % 11.6-14.4 Platelets (test code = 777-3) 255 150- 450 K/CU MM MPV (test code = 95683-6) 11.1 fL 9.4-12.4 nRBC (test code = 413) 0 0- 0 /100 WBC % Neutros (test code = 429) 64 % % Lymphs (test code = 430) 20 % % Monos (test code = 431) 12 % % Eos (test code = 432) 3 % % Baso (test code = 437) 1 % # Neutros (test code = 670) 5.16 1.78- 5.38 K/L # Lymphs (test code = 414) 1.60 1.32- 3.57 K/L # Monos (test code = 415) 0.93 0.30- 0.82 K/L H # Eos (test code = 416) 0.27 0.04- 0.54 K/L # Baso (test code = 417) 0.04 0.01- 0.08 K/L Immature Granulocytes-Relative 0 % 0-1 (test code = 2801) Lab Interpretation (test code = Abnormal 02844-5) [facility] W/PLT COUNT & AUTO [id number] 04:56:00 Test Item Value Reference Range Interpretation Comments WHITE BLOOD CELL COUNT (BEAKER) 8.0 K/ L 3.5-10.5 (test code = 775) RED BLOOD CELL COUNT (BEAKER) 4.24 M/ L 4.63-6.08 L (test code = 761) HEMOGLOBIN (BEAKER) (test code = 12.5 GM/DL 13.7-17.5 L 410) HEMATOCRIT (BEAKER) (test code = 37.4 % 40.1-51.0 L 411) MEAN CORPUSCULAR VOLUME (BEAKER) 88.2 fL 79.0-92.2 (test code = 753) MEAN CORPUSCULAR HEMOGLOBIN 29.5 pg 25.7-32.2 (BEAKER) (test code = 751) MEAN CORPUSCULAR HEMOGLOBIN CONC 33.4 GM/DL 32.3-36.5 (BEAKER) (test code = 752) RED CELL DISTRIBUTION WIDTH 13.8 % 11.6-14.4 (BEAKER) (test code = 412) PLATELET COUNT (BEAKER) (test 255 K/CU MM 150-450 code = 756) MEAN PLATELET VOLUME (BEAKER) 11.1 fL 9.4-12.4 (test code = 754) NUCLEATED RED BLOOD CELLS 0 /100 WBC 0-0 (BEAKER) (test code = 413) NEUTROPHILS RELATIVE PERCENT 64 % (BEAKER) (test code = 429) LYMPHOCYTES RELATIVE PERCENT 20 % (BEAKER) (test code = 430) MONOCYTES RELATIVE PERCENT 12 % (BEAKER) (test code = 431) EOSINOPHILS RELATIVE PERCENT 3 % (BEAKER) (test code = 432) BASOPHILS RELATIVE PERCENT 1 % (BEAKER) (test code = 437) NEUTROPHILS ABSOLUTE COUNT 5.16 K/ L 1.78-5.38 (BEAKER) (test code = 670) LYMPHOCYTES ABSOLUTE COUNT 1.60 K/ L 1.32-3.57 (BEAKER) (test code = 414) MONOCYTES ABSOLUTE COUNT (BEAKER) 0.93 K/ L 0.30-0.82 H (test code = 415) EOSINOPHILS ABSOLUTE COUNT 0.27 K/ L 0.04-0.54 (BEAKER) (test code = 416) BASOPHILS ABSOLUTE COUNT (BEAKER) 0.04 K/ L 0.01-0.08 (test code = 417) IMMATURE GRANULOCYTES-RELATIVE 0 % 0-1 PERCENT (BEAKER) (test code = 2801) Venous doppler legs [id number] 02:44:54Ejection [facility] ECHO HEARTLAB MKCKESSON CPACSRight Impression1. There is no deep venous obstruction in the common femoral, profundafemoral, femoral, popliteal, posterior tibial or peroneal veins.2. There is no superficial venous obstruction in the great saphenous vein.Left Impression1. There is no deep venous obstruction in the common femoral, profundafemoral, femoral, popliteal, posterior tibial or peroneal veins.2. There is no superficial venous obstruction in the great saphenous vein. Conclusions Summary Venous duplex imaging and compression of the bilateral lower extremities were performed. The veins were adequately visualized. The bilateral venous systems were patent and compressiblewith no evidence of thrombus. The venous Doppler waveforms were phasic with respiration. Signature Velocities are measured in cm/s ; Diameters are measured in cm Interface, External Ris In - 09/13/2019 2:45 AM CSTPV LAB - Lower Extremities DVT Study Demographics Patient Name PRIYANKA VILLALOBOS Date of Study 09/12/2019 JOE Age 68 Visit Number [id number] Gender Male Accession Number [id number] Date of 1950 Referring Dameon English,Room Number 1151 Physician Microbiology Lab Manager Anastasia Acosta Interpreting Jocelyne Lo T Physician ProcedureType of Study: Veins: Lower Extremities DVT Study, VENOUS DOPPLER LEG, BILATERAL. Indications for Study:Leg swelling.Patient Status:Routine.Study Location:Vascular Lab.Technical Quality:Adequate visualization.Risk FactorsHistory of Disease+ +----+ --+!Diagnosis !Date!Comments !+ +----+ +!History/Risk Factors: ! !CAD w/CABG !+ +----+ + ImpressionsRight Impression1. There is no deep venous obstruction in the common femoral, profundafemoral, femoral, popliteal, posterior tibial or peroneal veins.2. There is no superficial venous obstruction in the great saphenous vein.Left Impression1. There is no deep venous obstruction in the commonfemoral, profundafemoral, femoral, popliteal, posterior tibial or peroneal veins.2. There is no superficial venous obstruction in the great saphenous vein. Conclusions Summary Venous duplex imaging and compression of the bilateral lower extremities were performed. The veins were adequately visualized. The bilateral venous systems were patent and compressible with no evidence of thrombus. The venousDoppler waveforms were phasic with respiration. Signature Velocities are measured in cm/s ; Diameters are measured in [facility] POCT-GLUCOSE [id number] 17:35:00 Test Item Value Reference Range Interpretation Comments POC-GLUCOSE METER 89 mg/dL 70-110 : TESTED A T [facility] 6720 (HARISH) (test code = [address], 1538) [address]: Cloud Systems Architect/Techni alfonzo ID = [id number] for SURI ALFONSO POCT-GLUCOSE [id number] 12:53:00 Test Item Value Reference Range Interpretation Comments POC-GLUCOSE METER 84 mg/dL 70-110 : TESTED A T [facility] 6720 (BEAKER) (test code = ROBERTO CARLOS Guzman [facility], 1538) 728[address]: Cloud Systems Architect/Techni alfonzo ID = [id number] for SURI ALFONSO POCT-GLUCOSE [id number] 08:18:00 Test Item Value Reference Range Interpretation Comments POC-GLUCOSE METER 78 mg/dL 70-110 : TESTED A T [facility] 6720 (BEAKER) (test code = [facility], 1538) 11972: Cloud Systems Architect/Techni alfonzo ID = [id number] for SURI ALFONSO BASIC METABOLIC [id number] 05:50:00 Test Item Value Reference Range Interpretation Comments SODIUM (BEAKER) 137 meq/L 136-145 (test code = 381) POTASSIUM (BEAKER) 3.2 meq/L 3.5-5.1 L (test code = 379) CHLORIDE (BEAKER) 105 meq/L 98-107 (test code = 382) CO2 (BEAKER) (test 26 meq/L 22-29 code = 355) BLOOD UREA NITROGEN 15 mg/dL 7-21 (BEAKER) (test code = 354) CREATININE (BEAKER) 0.79 mg/dL 0.57-1.25 (test code = 358) GLUCOSE RANDOM 60 mg/dL 70-105 L (BEAKER) (test code = 652) CALCIUM (BEAKER) 8.4 mg/dL 8.4-10.2 (test code = 697) EGFR (BEAKER) (test 98 mL/min/1.73 ESTIMA NATALIA GFR IS code = 1092) sq m NOT ACCURATE CREATININE CLEARANCE IN PREDICTING GLOMERULAR FILTRATION RATE . ESTIMATED GFR I S NOT APPLICABLE FOR DIALYSIS PATIEN TS. CBC W/PLT COUNT & AUTO [id number] 05:23:00 Test Item Value Reference Range Interpretation Comments WHITE BLOOD CELL COUNT (BEAKER) 7.7 K/ L 3.5-10.5 (test code = 775) RED BLOOD CELL COUNT (BEAKER) 4.00 M/ L 4.63-6.08 L (test code = 761) HEMOGLOBIN (BEAKER) (test code = 12.1 GM/DL 13.7-17.5 L 410) HEMATOCRIT (BEAKER) (test code = 35.4 % 40.1-51.0 L 411) MEAN CORPUSCULAR VOLUME (BEAKER) 88.5 fL 79.0-92.2 (test code = 753) MEAN CORPUSCULAR HEMOGLOBIN 30.3 pg 25.7-32.2 (BEAKER) (test code = 751) MEAN CORPUSCULAR HEMOGLOBIN CONC 34.2 GM/DL 32.3-36.5 (BEAKER) (test code = 752) RED CELL DISTRIBUTION WIDTH 13.7 % 11.6-14.4 (BEAKER) (test code = 412) PLATELET COUNT (BEAKER) (test 197 K/CU MM 150-450 code = 756) MEAN PLATELET VOLUME (BEAKER) 11.7 fL 9.4-12.4 (test code = 754) NUCLEATED RED BLOOD CELLS 0 /100 WBC 0-0 (BEAKER) (test code = 413) NEUTROPHILS RELATIVE PERCENT 70 % (BEAKER) (test code = 429) LYMPHOCYTES RELATIVE PERCENT 14 % (BEAKER) (test code = 430) MONOCYTES RELATIVE PERCENT 12 % (BEAKER) (test code = 431) EOSINOPHILS RELATIVE PERCENT 3 % (BEAKER) (test code = 432) BASOPHILS RELATIVE PERCENT 1 % (BEAKER) (test code = 437) NEUTROPHILS ABSOLUTE COUNT 5.38 K/ L 1.78-5.38 (BEAKER) (test code = 670) LYMPHOCYTES ABSOLUTE COUNT 1.08 K/ L 1.32-3.57 L (BEAKER) (test code = 414) MONOCYTES ABSOLUTE COUNT (BEAKER) 0.95 K/ L 0.30-0.82 H (test code = 415) EOSINOPHILS ABSOLUTE COUNT 0.20 K/ L 0.04-0.54 (BEAKER) (test code = 416) BASOPHILS ABSOLUTE COUNT (BEAKER) 0.05 K/ L 0.01-0.08 (test code = 417) IMMATURE GRANULOCYTES-RELATIVE 0 % 0-1 PERCENT (BEAKER) (test code = 2801) POCT-GLUCOSE [id number] 21:40:00 Test Item Value Reference Range Interpretation Comments POC-GLUCOSE METER 120 mg/dL 70-110 H : TESTED A T [facility] 6720 (BEAKER) (test code = ROBERTO CARLOS Guzman [facility], 1538) [address]: Cloud Systems Architect/Techni alfonzo ID = [id number] for Zoe oHuser POCT-GLUCOSE [id number] 18:48:00 Test Item Value Reference Range Interpretation Comments POC-GLUCOSE METER 117 mg/dL 70-110 H : TESTED A T [facility] 6720 (BEAKER) (test code = ROBERTO CARLOS Guzman [facility], 1538) 695[address]: Cloud Systems Architect/Techni alfonzo ID = [id number] for SURI ALFONSO 2D Echo W/Doppler(CW/PW/Color)2019-09-11 18:30:15Ejection [facility] ECHO HEARTLAB MKCKESSON CPACSInterface, External Ris In - 09/11/2019 6:30 PM C STTransthoracic Echocardiography Report (TTE) Demographics Patient Name PRIYANKA VILLALOBOS Date of Study 09/10/2019 JOE GenderMale Visit Number [id number] Race Unknown Room Number 1151 Number Date of 1950 Referring Physician Age 68 year(s) Microbiology Lab Manager Abed Bola Interpreting Tiffany Greco MD Fellow Hannah Eugene MD Procedure Type of Study TTE procedure:2DECHO W DOPPLER(CW/PW/COLOR) (MASSIMO) Indications:Known or suspected cardiomyopathy.Clinical HistoryHGB 13.5HCT 40.3 %ACUTE ON CHRONIC COMBINED SYSTOLIC AND DIASTOLIC CHFARRTHYMIACAD DM HTN STROKE BYPASS AORTO CORONARY JASVIR/SVG 09/06/19Contrast Medium: Definity. Amount - 2 mlHeight: 64 inches Weight: 76.2 kg (168 lbs) BSA: 1.82 m^2 BMI: 28.84 kg/m^2HR: 69 bpm BP: 111/71 mmHg Summary 1. [...] IVC dynamics 5-10mmHg 5. Moderate functional mitral regurgitation. Previous Study In comparison with the prior exam 09/04/19 the following changes are noted: the LV function is now <20% and the estimated PAP is now 25-30mmHg+RAP. Signature Findings Rhythm/BP Regular sinus rhythm during the exam. Left Ventricle LV endocardium is well visualized with IV ultrasound enhancing agent. The left ventricle is chamber size (by vol index) is mildly enlarged (male - LVED 75-89ml/m2). Normal LV wall thickness. All of the LV segments are severely hypokinetic . LVEF by Ma's method of disk assessment is severely reduced (<20%) . Left Atrium LA is well visualized. LA size is severely enlarged (>48 ml/m2) . Right Ventricle RV chamber size is mildly enlarged . Global RV systolic function is depressed . Right Atrium RA size is moderately dilated. Aortic Valve Mild AoV cusp thickening. Mild AoV cusp calcification. Mitral Valve Mild MV leaflet thickening. Mild mitral annular calcification. Moderate mitral regurgitation. Tricuspid Valve TV structure is normal. Mild tricuspid regurgitation. Estimated peak systolic PA pressure is 25-30 mmHg +RAP. Pulmonic Valve Normal PV structure appears normal by available views. Mild pulmonary regurgitation. Aorta Aortic root size (SInus of Valsalva diameter) is normal . Pericardium No significant pericardial effusion is visualized. IVC/SVC/PA/PV/Pleural The inferior vena cava is partially visualized. The estimated RA [...] Diameter: 2.06 cm Right Ventricle RVOT VTI: 8.9cm Aorta Ao Root S of Jenny.: 3.18 cm Doppler/Quantitative Measurements Mitral Valve MV Peak E-Wave:0.84 m/s MV Peak A-Wave: 0.27 m/s E/A Ratio: 3.11 Peak Gradient: 2.81 mmHg Deceleration Time: 151.4 msec MR Velocity: 3.68 m/s MV Leandro. Peak: Aortic Valve Peak Velocity: 0.96 m/s Mean Velocity: 0.59 m/s Peak Gradient: 3.7 mmHg Mean Gradient: 1.67 mmHg AV Area (continuity): 4.74 cm^2 AV VTI: 14.76 cm AV DVI: 1.42 LVOT Peak Velocity: 1.39 m/s Peak Gradient: 7.74 mmHg Mean Velocity: 0.94 m/sMean Gradient: 3.98 mmHg LVOT Diameter: 2.06 cm LVOT VTI: 21.02 cm LVOT Area: 3.33 cm^2 LVOT SV:70.02 ml LVOT CO: 4.83 l/min LVOT CI: 2.65 l/min/m^2 Tricuspid Valve TR Velocity: 2.52 m/s TR Gradient: 25.48 mmHgFrank R. Howard Memorial HospitalPOCT-GLUCOSE [id number] 14:13:00 Test Item Value Reference Range Interpretation Comments POC-GLUCOSE METER 96 mg/dL 70-110 : [facility]ED A [employer] [facility] 67[facility] ([employer]) (test code = ROBERTO CARLOS [place], 1538) 57[address]: Cloud Systems Architect/Techni alfonzo ID = [id number] for ALEXANDER ALVES POCT-GLUCOSE [id number] 08:37:00 Test Item Value Reference Range Interpretation Comments POC-GLUCOSE METER 96 mg/dL 70-110 : TESTED A T [facility] 6720 (BEAKER) (test code = [facility], 1538) 18196: Cloud Systems Architect/Techni alfonzo ID = [id number] for SURI ALFONSO POCT-GLUCOSE [id number] 21:39:00 Test Item Value Reference Range Interpretation Comments POC-GLUCOSE METER 130 mg/dL 70-110 H : TESTED A T [facility] 6720 (BEAKER) (test code = [facility], 1538) 88986: Cloud Systems Architect/Techni alfonzo ID = [id number] for CHIDI LEONARD POCT-GLUCOSE [id number] 15:46:00 Test Item Value Reference Range Interpretation Comments POC-GLUCOSE METER 106 mg/dL 70-110 : TESTED A T [facility] 6720 (BEAKER) (test code [facility], = 1538) 65052: Cloud Systems Architect/Techni alfonzo ID = [id number] for ENRRIQUE ALVESO POCT-GLUCOSE [id number] 12:25:00 Test Item Value Reference Range Interpretation Comments POC-GLUCOSE METER 241 mg/dL 70-110 H : TESTED A T [facility] 6720 (BEAKER) (test code = [facility], 1538) 01247: Cloud Systems Architect/Techni alfonzo ID = [id number] for MAGDA MERAZ [id number] 11:08:00 Test Item Value Reference Range Interpretation Comments Magnesium (test code = 80104-3) 2.0 mg/dL 1.6-2.6 Lab Interpretation (test code = Normal 39677-7) [facility] HospitalMAGNESIUM2019-12-03 11:08:00 Test Item Value Reference Range Interpretation Comments MAGNESIUM (BEAKER) (test code = 2.0 mg/dL 1.6-2.6 627) BASIC METABOLIC [id number] 10:40:00 Test Item Value Reference Range Interpretation Comments SODIUM (BEAKER) 135 meq/L 136-145 L (test code = 381) POTASSIUM (BEAKER) 3.8 meq/L 3.5-5.1 (test code = 379) CHLORIDE (BEAKER) 103 meq/L 98-107 (test code = 382) CO2 (BEAKER) (test 23 meq/L 22-29 code = 355) BLOOD UREA NITROGEN 25 mg/dL 7-21 H (BEAKER) (test code = 354) CREATININE (BEAKER) 1.07 mg/dL 0.57-1.25 (test code = 358) GLUCOSE RANDOM 187 mg/dL 70-105 H (BEAKER) (test code = 652) CALCIUM (BEAKER) 8.8 mg/dL 8.4-10.2 (test code = 697) EGFR (BEAKER) (test 69 mL/min/1.73 ESTIMA NATALIA GFR IS code = 1092) sq m NOT ACCURATE CREATININE CLEARANCE IN PREDICTING GLOMERULAR FILTRATION RATE . ESTIMATED GFR I S NOT APPLICABLE FOR DIALYSIS PATIEN TS. CBC (Hemogram only)2019-09-10 10:10:00 Test Item Value Reference Range Interpretation Comments WBC (test code = 6690-2) 10.1 3.5- 10.5 K/L RBC (test code = 789-8) 4.52 4.63- 6.08 M/L L MCHC (test code = 786-4) 33.5 32.3- 36.5 GM/DL L Hematocrit (test code = 4544-3) 40.3 % 40.1-51 MCV (test code = 787-2) 89.2 fL 79-92.2 MCH (test code = 785-6) 29.9 pg 25.7-32.2 RDW (test code = 788-0) 14.0 % 11.6-14.4 Platelets (test code = 777-3) 194 150- 450 K/CU MM MPV (test code = 39241-1) 11.5 fL 9.4-12.4 nRBC (test code = 413) 0 0- 0 /100 WBC Lab Interpretation (test code = Abnormal 62298-1) [facility] HospitalCBC (HEMOGRAM ONLY)2019-09-10 10:10:00 Test Item Value Reference Range Interpretation Comments WHITE BLOOD CELL COUNT (BEAKER) 10.1 K/ L 3.5-10.5 (test code = 775) RED BLOOD CELL COUNT (BEAKER) 4.52 M/ L 4.63-6.08 L (test code = 761) HEMOGLOBIN (BEAKER) (test code = 13.5 GM/DL 13.7-17.5 L 410) HEMATOCRIT (BEAKER) (test code = 40.3 % 40.1-51.0 411) MEAN CORPUSCULAR VOLUME (BEAKER) 89.2 fL 79.0-92.2 (test code = 753) MEAN CORPUSCULAR HEMOGLOBIN 29.9 pg 25.7-32.2 (BEAKER) (test code = 751) MEAN CORPUSCULAR HEMOGLOBIN CONC 33.5 GM/DL 32.3-36.5 (BEAKER) (test code = 752) RED CELL DISTRIBUTION WIDTH 14.0 % 11.6-14.4 (BEAKER) (test code = 412) PLATELET COUNT (BEAKER) (test 194 K/CU MM 150-450 code = 756) MEAN PLATELET VOLUME (BEAKER) 11.5 fL 9.4-12.4 (test code = 754) NUCLEATED RED BLOOD CELLS 0 /100 WBC 0-0 (AKER) (test code = 413) POCT-GLUCOSE [id number] 08:09:00 Test Item Value Reference Range Interpretation Comments POC-GLUCOSE METER 135 mg/dL 70-110 H : TESTED A T [facility] 6720 ([facility]) (test code = [facility], 1538) 07743: Cloud Systems Architect/Techni alfonzo ID = [id number] for TH MAGDA CELESTIN POCT-GLUCOSE [id number] 21:45:00 Test Item Value Reference Range Interpretation Comments POC-GLUCOSE METER 207 mg/dL 70-110 H : TESTED A T [facility] 6720 ([facility]) (test code = [facility], 1538) 42492: Cloud Systems Architect/Techni alfonzo ID = [id number] for PI CHIDI SANTANA POCT-GLUCOSE [id number] 19:50:00 Test Item Value Reference Range Interpretation Comments POC-GLUCOSE METER 160 mg/dL 70-110 H : TESTED A T [facility] 6720 ([facility]) (test code = [facility], 1538) 38925: Cloud Systems Architect/Techni alfonzo ID = [id number] for Shai res, Letty ECG 12 [id number] 18:25:56Interface, External Ris In - 09/09/2019 6:26 PM CSTVentricular Rate 93 BPMAtrial Rate 300 BPMQRS Duration 108 msQ-T Interval 386 msQTC Calculation(Bazett) 479 msR [place] 36 degreesT [place] 235 degreesAtrial flutter with variable A-V block with premature ventricular or aberrantly conducted complexesInferior infarct (cited on or before 03-SEP-2019)Cannot exclude Anterolateral infarctST elevation in V1-Z5uhvtpe exclude STEMINonspecific T wave abnormalityProlonged QTAbnormal ECGWhen compared with ECG of 09-SEP-2019 06:47,Atrial flutter replaced sinus rhythmPVCs now seenQ waves width has increased in V4-V6QT has lengthenedConfirmed by MD SHENG, KEITH ([id number]) on 09/09/2019 6:25:52 [facility]PO[facility] [id number] 16:02:00 Test Item Value Reference Range Interpretation Comments POC-GLUCOSE METER 175 mg/dL 70-110 H : TESTED A T [facility] 6720 (BEAKER) (test code = [facility], 1538) 93639: Cloud Systems Architect/Techni alfonzo ID = [id number] for SABINA COHN POCT-GLUCOSE [id number] 12:32:00 Test Item Value Reference Range Interpretation Comments POC-GLUCOSE METER 192 mg/dL 70-110 H : TESTED A T [facility] 6720 (BEAKER) (test code = [facility], 1538) [address]: Cloud Systems Architect/Techni alfonzo ID = [id number] for SABINA COHN BASIC METABOLIC [id number] 08:29:00 Test Item Value Reference Range Interpretation Comments SODIUM (BEAKER) 138 meq/L 136-145 (test code = 381) POTASSIUM (BEAKER) 3.8 meq/L 3.5-5.1 (test code = 379) CHLORIDE (BEAKER) 106 meq/L 98-107 (test code = 382) CO2 (BEAKER) (test 27 meq/L 22-29 code = 355) BLOOD UREA NITROGEN 21 mg/dL 7-21 (BEAKER) (test code = 354) CREATININE (BEAKER) 0.86 mg/dL 0.57-1.25 (test code = 358) GLUCOSE RANDOM 141 mg/dL 70-105 H (BEAKER) (test code = 652) CALCIUM (BEAKER) 8.5 mg/dL 8.4-10.2 (test code = 697) EGFR (BEAKER) (test 89 mL/min/1.73 ESTIMA NATALIA GFR IS code = 1092) sq m NOT ACCURATE CREATININE CLEARANCE IN PREDICTING GLOMERULAR FILTRATION RATE . ESTIMATED GFR I S NOT APPLICABLE FOR DIALYSIS PATIEN TS. POCT-GLUCOSE [id number] 08:05:00 Test Item Value Reference Range Interpretation Comments POC-GLUCOSE METER 147 mg/dL 70-110 H : TESTED A T [facility] 6720 (BEAKER) (test code = [place], 1538) 923[address]: Cloud Systems Architect/Techni alfonzo ID = [id number] for LALIT SABINA CBC W/PLT COUNT & AUTO [id number] 07:54:00 Test Item Value Reference Range Interpretation Comments WHITE BLOOD CELL COUNT (BEAKER) 9.2 K/ L 3.5-10.5 (test code = 775) RED BLOOD CELL COUNT (BEAKER) 4.18 M/ L 4.63-6.08 L (test code = 761) HEMOGLOBIN (BEAKER) (test code = 12.5 GM/DL 13.7-17.5 L 410) HEMATOCRIT (BEAKER) (test code = 37.7 % 40.1-51.0 L 411) MEAN CORPUSCULAR VOLUME (BEAKER) 90.2 fL 79.0-92.2 (test code = 753) MEAN CORPUSCULAR HEMOGLOBIN 29.9 pg 25.7-32.2 (BEAKER) (test code = 751) MEAN CORPUSCULAR HEMOGLOBIN CONC 33.2 GM/DL 32.3-36.5 (BEAKER) (test code = 752) RED CELL DISTRIBUTION WIDTH 13.9 % 11.6-14.4 (BEAKER) (test code = 412) PLATELET COUNT (BEAKER) (test 136 K/CU MM 150-450 L code = 756) MEAN PLATELET VOLUME (BEAKER) 12.7 fL 9.4-12.4 H (test code = 754) NUCLEATED RED BLOOD CELLS 0 /100 WBC 0-0 (BEAKER) (test code = 413) NEUTROPHILS RELATIVE PERCENT 75 % (BEAKER) (test code = 429) LYMPHOCYTES RELATIVE PERCENT 12 % (BEAKER) (test code = 430) MONOCYTES RELATIVE PERCENT 9 % (BEAKER) (test code = 431) EOSINOPHILS RELATIVE PERCENT 3 % (BEAKER) (test code = 432) BASOPHILS RELATIVE PERCENT 0 % (BEAKER) (test code = 437) NEUTROPHILS ABSOLUTE COUNT 6.89 K/ L 1.78-5.38 H (BEAKER) (test code = 670) LYMPHOCYTES ABSOLUTE COUNT 1.11 K/ L 1.32-3.57 L (BEAKER) (test code = 414) MONOCYTES ABSOLUTE COUNT (BEAKER) 0.85 K/ L 0.30-0.82 H (test code = 415) EOSINOPHILS ABSOLUTE COUNT 0.24 K/ L 0.04-0.54 (BEAKER) (test code = 416) BASOPHILS ABSOLUTE COUNT (BEAKER) 0.03 K/ L 0.01-0.08 (test code = 417) IMMATURE GRANULOCYTES-RELATIVE 1 % 0-1 PERCENT (BEAKER) (test code = 2801) RAD, CHEST, 1 VIEW, NON [id number] 07:05:00Reason for exam:->post chest tube removalShould this be performed at the bedside?->YesFINAL REPORT RAD, CHEST, 1 VIEW, NON DEPT INDICATION: post chest tube removal COMPARISON: Prior day's exam FINDINGS: Portable frontal view of the chest. IMPRESSION: Support Lines: None. Lungs and pleura: Previously described left apical pneumothorax is not well characterized in the current examination. Airspaces and lung markings otherwise unchanged.Heart and mediastinum: Stable contours. Stable surgical changes.Additional findings: None. Signed: JR Patel Robert MDReport Verified Date/Time: 09/09/2019 07:05:10 Reading Location: [facility] Radiology Reading Room XR chest 1 view portable / [id number] 07:05:00Interface, External Ris In - 09/09/2019 7:07 AM CSTFINAL REPORT RAD, CHEST, 1 VIEW, NON DEPT INDICATION: post chest tube removal COMPARISON: Prior day's exam FINDINGS: Portable frontal view of the chest. IMPRESSION: Support Lines: None. Lungs and pleura: Previously describedleft apical pneumothorax is not well characterized in the current examination. Airspaces and lung markings otherwise unchanged.Heart and mediastinum: Stable contours. Stable surgical changes.Additionalfindings: None. Signed: JR Amanda, Brendon Iniguez Verified Date/Time: 09/09/2019 07:05:10 [facility] HospitalCal[facility], [id number] 06:40:00 Test Item Value Reference Range Interpretation Comments Calcium, Ion (test code = 1994-3) 1.07 mmol/L 1.12-1.27 L pH, Blood (test code = 17573-3) 7.48 Lab Interpretation (test code = Abnormal 43765-8) [facility] HospitalCALCIUM, [id number] 06:40:00 Test Item Value Reference Range Interpretation Comments CALCIUM IONIZED (BEAKER) (test 1.07 mmol/L 1.12-1.27 L code = 698) PH, BLOOD (BEAKER) (test code = 7.48 1810) POCT-GLUCOSE [id number] 21:47:00 Test Item Value Reference Range Interpretation Comments POC-GLUCOSE METER 184 mg/dL 70-110 H : TESTED A T [facility] 6720 (BEAKER) (test code = [facility] [facility], 1538) [address]: Cloud Systems Architect/Techni alfonzo ID = [id number] for Fi te, Zoe POCT-GLUCOSE [id number] 17:30:00 Test Item Value Reference Range Interpretation Comments POC-GLUCOSE METER 156 mg/dL 70-110 H : TESTED A T [facility] 6720 (BEAKER) (test code = [facility] [employer] [facility], 1538) 79444: Cloud Systems Architect/Techni alfonzo ID = [id number] for MATTHEWKATTIL, SURI POCT-GLUCOSE [id number] 13:28:00 Test Item Value Reference Range Interpretation Comments POC-GLUCOSE METER 167 mg/dL 70-110 H : TESTED A T [facility] 6720 (BEAKER) (test code = [facility], 1538) [address]: Cloud Systems Architect/Techni alfonzo ID = [id number] for Lulu hn, Alanis RAD, CHEST, 1 VIEW, NON [id number] 09:26:00while patient is intubated or has chest tubes.Reason for exam:->Status post CV SurgeryShould thisbe performed at the bedside?->YesFINAL REPORT Chest, one view. HISTORY: Status post CV Surgery COMPARISON: Radiograph from yesterday IMPRESSION: The bilateral streaky opacities are most likely due to atelectasis and similar the prior. A left chest tube is in place, and the left pneumothorax has decreased in size with only trace residual. Continued decrease in the lung volumes. Pulmonary venous congestion. The cardiac silhouette is unchanged. No acute bony abnormality. Signed: Shay Greenwood MDReport Verified Date/Time: 09/08/2019 09:26:12 Reading Location: [facility] C013Y CT Body Reading Room Electronicallysigned by: SHAY GREENWOOD MD on 09/08/2019 09:26 AMPOCT-GLUCOSE [id number] 08:13:00 Test Item Value Reference Range Interpretation Comments POC-GLUCOSE METER 133 mg/dL 70-110 H : TESTED A T [facility] 6720 (BEAKER) (test code = [facility]ERT[facility] CARLOS Megan [facility], 1538) 138[address]: Cloud Systems Architect/Techni alfonzo ID = [id number] for Alanis Coleman [id number] 06:42:00 Test Item Value Reference Range Interpretation Comments Phosphorus (test code = 2777-1) 2.5 mg/dL 2.3-4.7 Lab Interpretation (test code = Normal 05827-6) [facility] HospitalPHOSPHORUS2019-12-01 06:42:00 Test Item Value Reference Range Interpretation Comments PHOSPHORUS (BEAKER) (test code = 2.5 mg/dL 2.3-4.7 604) [id number] 06:42:00 Test Item Value Reference Range Interpretation Comments MAGNESIUM (BEAKER) (test code = 2.1 mg/dL 1.6-2.6 627) BASIC METABOLIC [id number] 06:42:00 Test Item Value Reference Range Interpretation Comments SODIUM (BEAKER) 138 meq/L 136-145 (test code = 381) POTASSIUM (BEAKER) 4.0 meq/L 3.5-5.1 (test code = 379) CHLORIDE (BEAKER) 105 meq/L 98-107 (test code = 382) CO2 (BEAKER) (test 26 meq/L 22-29 code = 355) BLOOD UREA NITROGEN 23 mg/dL 7-21 H (BEAKER) (test code = 354) CREATININE (BEAKER) 0.99 mg/dL 0.57-1.25 (test code = 358) GLUCOSE RANDOM 148 mg/dL 70-105 H (BEAKER) (test code = 652) CALCIUM (BEAKER) 8.9 mg/dL 8.4-10.2 (test code = 697) EGFR (BEAKER) (test 75 mL/min/1.73 ESTIMA NATALIA GFR IS code = 1092) sq m NOT ACCURATE CREATININE CLEARANCE IN PREDICTING GLOMERULAR FILTRATION RATE . ESTIMATED GFR I S NOT APPLICABLE FOR DIALYSIS PATIEN TS. CBC W/PLT COUNT & AUTO [id number] 06:12:00 Test Item Value Reference Range Interpretation Comments WHITE BLOOD CELL COUNT (BEAKER) 9.8 K/ L 3.5-10.5 (test code = 775) RED BLOOD CELL COUNT (BEAKER) 4.51 M/ L 4.63-6.08 L (test code = 761) HEMOGLOBIN (BEAKER) (test code = 13.3 GM/DL 13.7-17.5 L 410) HEMATOCRIT (BEAKER) (test code = 41.2 % 40.1-51.0 411) MEAN CORPUSCULAR VOLUME (BEAKER) 91.4 fL 79.0-92.2 (test code = 753) MEAN CORPUSCULAR HEMOGLOBIN 29.5 pg 25.7-32.2 (BEAKER) (test code = 751) MEAN CORPUSCULAR HEMOGLOBIN CONC 32.3 GM/DL 32.3-36.5 (BEAKER) (test code = 752) RED CELL DISTRIBUTION WIDTH 14.1 % 11.6-14.4 (BEAKER) (test code = 412) PLATELET COUNT (BEAKER) (test 128 K/CU MM 150-450 L code = 756) MEAN PLATELET VOLUME (BEAKER) 12.0 fL 9.4-12.4 (test code = 754) NUCLEATED RED BLOOD CELLS 0 /100 WBC 0-0 (BEAKER) (test code = 413) NEUTROPHILS RELATIVE PERCENT 79 % (BEAKER) (test code = 429) LYMPHOCYTES RELATIVE PERCENT 10 % (BEAKER) (test code = 430) MONOCYTES RELATIVE PERCENT 9 % (BEAKER) (test code = 431) EOSINOPHILS RELATIVE PERCENT 1 % (BEAKER) (test code = 432) BASOPHILS RELATIVE PERCENT 0 % (BEAKER) (test code = 437) NEUTROPHILS ABSOLUTE COUNT 7.81 K/ L 1.78-5.38 H (BEAKER) (test code = 670) LYMPHOCYTES ABSOLUTE COUNT 0.94 K/ L 1.32-3.57 L (BEAKER) (test code = 414) MONOCYTES ABSOLUTE COUNT (BEAKER) 0.92 K/ L 0.30-0.82 H (test code = 415) EOSINOPHILS ABSOLUTE COUNT 0.10 K/ L 0.04-0.54 (BEAKER) (test code = 416) BASOPHILS ABSOLUTE COUNT (BEAKER) 0.02 K/ L 0.01-0.08 (test code = 417) IMMATURE GRANULOCYTES-RELATIVE 0 % 0-1 PERCENT (BEAKER) (test code = 2801) CALCIUM, [id number] 06:01:00 Test Item Value Reference Range Interpretation Comments CALCIUM IONIZED (BEAKER) (test 1.14 mmol/L 1.12-1.27 code = 698) PH, BLOOD (BEAKER) (test code = 7.39 1810) POCT-GLUCOSE [id number] 00:11:00 Test Item Value Reference Range Interpretation Comments POC-GLUCOSE METER 149 mg/dL 70-110 H [facility] (test code = [place], 1538) [address]: Cloud Systems Architect/Techni alfonzo ID = [id number] for Zoe Houser [id number] 12:06:00 Test Item Value Reference Range Interpretation Comments PHOSPHORUS (BEAKER) (test code = 3.5 mg/dL 2.3-4.7 604) Add onAdd [id number] 12:06:00 Test Item Value Reference Range Interpretation Comments MAGNESIUM (BEAKER) (test code = 2.2 mg/dL 1.6-2.6 627) Add onAdd onBASIC METABOLIC [id number] 12:06:00 Test Item Value Reference Range Interpretation Comments SODIUM (BEAKER) 137 meq/L 136-145 (test code = 381) POTASSIUM (BEAKER) 4.5 meq/L 3.5-5.1 (test code = 379) CHLORIDE (BEAKER) 109 meq/L 98-107 H (test code = 382) CO2 (BEAKER) (test 20 meq/L 22-29 L code = 355) BLOOD UREA NITROGEN 24 mg/dL 7-21 H (BEAKER) (test code = 354) CREATININE (BEAKER) 1.09 mg/dL 0.57-1.25 (test code = 358) GLUCOSE RANDOM 211 mg/dL 70-105 H (BEAKER) (test code = 652) CALCIUM (BEAKER) 8.6 mg/dL 8.4-10.2 (test code = 697) EGFR (BEAKER) (test 67 mL/min/1.73 ESTIMA NATALIA GFR IS code = 1092) sq m NOT ACCURATE CREATININE CLEARANCE IN PREDICTING GLOMERULAR FILTRATION RATE . ESTIMATED GFR I S NOT APPLICABLE FOR DIALYSIS PATIEN TS. Add onAdd onSpecimen slightly ictericPOCT-GLUCOSE [id number] 07:34:00 Test Item Value Reference Range Interpretation Comments POC-GLUCOSE METER 154 mg/dL 70-110 H : TESTED A T [facility] 6720 (BEAKER) (test code = ROBERTO CARLOS Guz[place], 1538) 89[address]: Cloud Systems Architect/Techni alfonzo ID = [id number] for RITO KIRITANNIA VALE [id number] 04:42:00 Test Item Value Reference Range Interpretation Comments PHOSPHORUS (BEAKER) (test code = 3.7 mg/dL 2.3-4.7 604) [id number] 04:42:00 Test Item Value Reference Range Interpretation Comments MAGNESIUM (BEAKER) (test code = 1.9 mg/dL 1.6-2.6 627) BASIC METABOLIC [id number] 04:42:00 Test Item Value Reference Range Interpretation Comments SODIUM (BEAKER) 141 meq/L 136-145 (test code = 381) POTASSIUM (BEAKER) 4.1 meq/L 3.5-5.1 (test code = 379) CHLORIDE (BEAKER) 110 meq/L 98-107 H (test code = 382) CO2 (BEAKER) (test 24 meq/L 22-29 code = 355) BLOOD UREA NITROGEN 22 mg/dL 7-21 H (BEAKER) (test code = 354) CREATININE (BEAKER) 0.87 mg/dL 0.57-1.25 (test code = 358) GLUCOSE RANDOM 150 mg/dL 70-105 H (BEAKER) (test code = 652) CALCIUM (BEAKER) 8.5 mg/dL 8.4-10.2 (test code = 697) EGFR (BEAKER) (test 88 mL/min/1.73 ESTIMA NATALIA GFR IS code = 1092) sq m NOT ACCURATE CREATININE CLEARANCE IN PREDICTING GLOMERULAR FILTRATION RATE . ESTIMATED GFR I S NOT APPLICABLE FOR DIALYSIS PATIEN TS. Specimen slightly ictericCBC W/PLT COUNT & AUTO [id number] 04:16:00 Test Item Value Reference Range Interpretation Comments WHITE BLOOD CELL COUNT (BEAKER) 9.7 K/ L 3.5-10.5 (test code = 775) RED BLOOD CELL COUNT (BEAKER) 4.60 M/ L 4.63-6.08 L (test code = 761) HEMOGLOBIN (BEAKER) (test code = 13.8 GM/DL 13.7-17.5 410) HEMATOCRIT (BEAKER) (test code = 41.8 % 40.1-51.0 411) MEAN CORPUSCULAR VOLUME (BEAKER) 90.9 fL 79.0-92.2 (test code = 753) MEAN CORPUSCULAR HEMOGLOBIN 30.0 pg 25.7-32.2 (BEAKER) (test code = 751) MEAN CORPUSCULAR HEMOGLOBIN CONC 33.0 GM/DL 32.3-36.5 (BEAKER) (test code = 752) RED CELL DISTRIBUTION WIDTH 14.3 % 11.6-14.4 (BEAKER) (test code = 412) PLATELET COUNT (BEAKER) (test 134 K/CU MM 150-450 L code = 756) MEAN PLATELET VOLUME (BEAKER) 11.8 fL 9.4-12.4 (test code = 754) NUCLEATED RED BLOOD CELLS 0 /100 WBC 0-0 (BEAKER) (test code = 413) NEUTROPHILS RELATIVE PERCENT 85 % (BEAKER) (test code = 429) LYMPHOCYTES RELATIVE PERCENT 6 % (BEAKER) (test code = 430) MONOCYTES RELATIVE PERCENT 9 % (BEAKER) (test code = 431) EOSINOPHILS RELATIVE PERCENT 0 % (BEAKER) (test code = 432) BASOPHILS RELATIVE PERCENT 0 % (BEAKER) (test code = 437) NEUTROPHILS ABSOLUTE COUNT 8.22 K/ L 1.78-5.38 H (BEAKER) (test code = 670) LYMPHOCYTES ABSOLUTE COUNT 0.59 K/ L 1.32-3.57 L (BEAKER) (test code = 414) MONOCYTES ABSOLUTE COUNT (BEAKER) 0.82 K/ L 0.30-0.82 (test code = 415) EOSINOPHILS ABSOLUTE COUNT 0.01 K/ L 0.04-0.54 L (BEAKER) (test code = 416) BASOPHILS ABSOLUTE COUNT (BEAKER) 0.01 K/ L 0.01-0.08 (test code = 417) IMMATURE GRANULOCYTES-RELATIVE 0 % 0-1 PERCENT (BEAKER) (test code = 2801) Lactic Acid, [id number] 04:08:00 Test Item Value Reference Range Interpretation Comments Lactate, Art (test code = 2874) 0.9 mmol/L 0.5-2.2 Lab Interpretation (test code = Normal 31205-3) [facility] HospitalLACTIC ACID, [id number] 04:08:00 Test Item Value Reference Range Interpretation Comments LACTATE BLOOD ARTERIAL (2) 0.9 mmol/L 0.5-2.2 (BEAKER) (test code = 2874) CALCIUM, [id number] 04:02:00 Test Item Value Reference Range Interpretation Comments CALCIUM IONIZED (BEAKER) (test 1.18 mmol/L 1.12-1.27 code = 698) PH, BLOOD (BEAKER) (test code = 7.40 1810) Blood gas, [id number] 04:01:00 Test Item Value Reference Range Interpretation Comments pH, Arterial (test code = 2744-1) 7.40 7.35-7.45 pCO2, Arterial (test code = 39 35- 45 mmHg 2019-05) pO2, Arterial (test code = 89 80- 90 mmHg 2702-7) O2 Sat, Arterial (test code = 97.0 % 96-97 2707-6) HCO3, Arterial (test code = 24 mmol/L 21-29 1959-) Base Excess, Arterial (test code -1.0 mmol/L -2-3 = 1925-7) Patient Temperature (test code = 36.6 C 8310-5) FIO2 (test code = 1819) 36 % [facility] HospitalOxygen saturation, [id number] 04:01:00 Test Item Value Reference Range Interpretation Comments O2 Saturation (Measured) (test code = 67.1 % 75696-7) [facility] HospitalBLOOD GAS, [id number] 04:01:00 Test Item Value Reference Range Interpretation Comments PH ARTERIAL (BEAKER) (test code = 7.40 7.35-7.45 383) PCO2 ARTERIAL (BEAKER) (test code 39 mmHg 35-45 = 384) PO2 ARTERIAL (BEAKER) (test code 89 mmHg 80-90 = 385) O2 SATURATION ARTERIAL (BEAKER) 97.0 % 96.0-97.0 (test code = 386) HCO3 ARTERIAL (BEAKER) (test code 24 mmol/L 21-29 = 388) BASE EXCESS ARTERIAL (BEAKER) -1.0 mmol/L -2.0-3.0 (test code = 387) PATIENT TEMPERATURE (BEAKER) 36.6 C (test code = 1818) FIO2 (BEAKER) (test code = 1819) 36.0 % OXYGEN SATURATION, [id number] 04:01:00 Test Item Value Reference Range Interpretation Comments O2 SATURATION (MEASURED) (BEAKER) 67.1 % (test code = 1455) RAD, CHEST, 1 VIEW, NON [id number] 03:34:00while patient is intubated or has chest tubes.Reason for exam:->Status post CV SurgeryShould thisbe performed at the bedside?->YesFINAL REPORT CLINICAL INDICATION: Postop Comparison: 09/06/2019 The cardiomediastinal contours are stable. The lung volumes have decreased after extubation. There is worsening central vascular engorgement. Worsening perihilar and bibasilar opacities may reflect a combination ofatelectasis and edema but pneumonitis should be excluded clinically. There is a small left apical pneumothorax. Remaining support lines, including a left-sided chest tube, are stable. Signed: Jenniffer Mathew MDRepscotland county memorial hospital Verified Date/Time: 09/07/2019 03:34:20 BLOOD GAS, [id number] 16:05:00 Test Item Value Reference Range Interpretation Comments PH ARTERIAL (BEAKER) (test code = 7.43 7.35-7.45 383) PCO2 ARTERIAL (BEAKER) (test code 36 mmHg 35-45 = 384) PO2 ARTERIAL (BEAKER) (test code 111 mmHg 80-90 H = 385) O2 SATURATION ARTERIAL (BEAKER) 98.2 % 96.0-97.0 H (test code = 386) HCO3 ARTERIAL (BEAKER) (test code 23 mmol/L 21-29 = 388) BASE EXCESS ARTERIAL (BEAKER) -0.5 mmol/L -2.0-3.0 (test code = 387) PATIENT TEMPERATURE (BEAKER) 37.0 C (test code = 1818) FIO2 (BEAKER) (test code = 1819) 40.0 % Carotid doppler [id number] 14:07:14Ejection FractionSLEH ECHO HEARTLAB MKCKESSON CPACSRight Impression1. There is <50% diameter reduction (approximately 23% by 2-D measurement)in the internal carotid artery with a peak velocity of 51cm/sec andheterogeneous plaque.2. There is non-occluding plaque in the external carotid artery.3. There is non-occluding plaque in the common carotid artery.4. The vertebral artery flow is antegrade and normal.5. The subclavian artery is within normal limits where visualized.Left Impression1. There is<50% diameter reduction (approximately 20% by 2-D measurement)in the internal carotid artery witha peak velocity of 55 cm/sec andheterogeneous plaque.2. There is non-occluding plaque in the external carotid artery.3. There is non-occluding plaque in the common carotid artery.4. The vertebral artery flow is antegrade and normal.5. The subclavian artery is within normal limits where visualized. Conclusions Summary Carotid duplex scanning and color flow imaging were performed bilaterally. The arteries were adequately visualized. The bilateral internal carotid arteries had <50% hemodynamically insignificant stenosis (approximately 23% by 2-D measurement on the right, approximately 20% by 2-Dmeasurement on the left) with heterogeneous plaque. The vertebral artery flow was antegrade and normal bilaterally. Signature Velocities are measured in cm/s ; Diameters are measured in cm Carotid Right Measurements+ +----+----+-----+ + +-- ---------+!Location !PSV !EDV !Angle!%Stenosis 2D!%Stenosis Doppler!Tortuosity !+ -+----+----+-----+ + + +!Prox CCA !51.6!14.7!60 ! ! ! !+ +----+----+-----+ + +- +!Dist CCA !42 !7.86!60 ! ! ! !+ --+----+----+-----+ + + +!Prox ICA !45.6!18.5!60 ! ! ! !+ +----+----+-----+ + + +!Dist ICA !51.1!13 !60 ! ! ! !+ ---+----+----+-----+ + + +!Prox ECA !93.8!7.62!60 ! ! ! !+ +----+----+-----+ + + +!Vertebral !35.4!11 !60 ! ! ! !+ ----+----+----+-----+ + + +!Prox Subclavian!60.9! !60 ! ! ! !+ +----+----+-----+ + + + - Additional Measurements:ICAPSV/CCAPSV 1.22.ICAEDV/CCAEDV 1.26. Carotid Left Measur ements+ +----+----+-----+ + + -+!Location !PSV !EDV !Angle!%Stenosis 2D!%Stenosis Doppler!Tortuosity !+ +----+----+-----+ -+ + +!Prox CCA !72.1!15.8!60 ! ! ! !+ +----+----+-----+ + + +!Di st CCA !48.7!10.2!60 ! ! ! !+ +----+----+-----+ --+ + +!Prox ICA !44 !21.1!60 ! ! ! !+ +----+----+-----+ + + +!Di st ICA !55.4!22.9!54 ! ! ! !+ +----+----+-----+--------- ---+ + +!Prox ECA !95 !17 !60 ! ! ! !+ +----+----+-----+ + + +!Ve rtebral!20.9! !54 ! ! ! !+ +----+----+-----+-------- ----+ + +!Prox Subclavian!51.1! !60 ! ! ! !+ +----+----+-----+ + + + - Additional Measurements:ICAPSV/CCAPSV 1.14.ICAEDV/CCAEDV 1.45. Interface, External Ris In - 09/06/2019 2:07 PM [facility] LAB - Carotid Duplex Study Demographics Patient Name PRIYANKA VILLALOBOS Date of Study 09/05/2019 JOE Age 68 Visit Number [id number] Gender Male Accession Number [id number] Date of 1950 Referring Hanh Pereyra MD Room Number 2C26 Physician Microbiology Lab Manager Martha Kraft, Interpreting Jocelyne Lo T Physician ProcedureType of Study: Cerebral: Carotid, CAROTID DOPPLER, BILATERAL. Indications for Study:Pre op.Patient Status:STAT.Study Location:Portable.Technical Quality:Adequatevisualization.ImpressionsRight Impression1. There is <50% diameter reduction (approximately 23% by 2-D measurement)in the internal carotid artery with a peak velocity of 51 cm/sec andheterogeneous plaque.2. There is non-occluding plaque in the external carotid artery.3. There is non-occluding plaque in the common carotid artery.4. The vertebral artery flow is antegrade and normal.5. The subclavianartery is within normal limits where visualized.Left Impression1. There is <50% diameter reduction (approximately 20% by 2-D measurement)in the internal carotid artery with a peak velocity of 55 cm/sec andheterogeneous plaque.2. There is non- occluding plaque in the external carotid artery.3. There is non-occluding plaque in the common carotid artery.4. The vertebral artery flow is antegrade and nor mal.5. The subclavian artery is within normal limits where visualized. Conclusions Summary Carotidduplex scanning and color flow imaging were performed bilaterally. The arteries were adequately visualized. The bilateral internal carotid arteries had <50% hemodynamically insignificant stenosis (ap proximately 23% by 2-D measurement on the right, approximately 20% by 2-D measurement on the left) with heterogeneous plaque. The vertebral artery flow was antegrade and normal bilaterally. Signature Velocities are measured in cm/s ; Diameters are measured in cmCarotid Right Measu rements+ +----+----+-----+ + +--------- --+!Location !PSV !EDV !Angle!%Stenosis 2D!%Stenosis Doppler!Tortuosity !+ +----+----+-----+ --+ + +!Prox CCA !51.6!14.7!60 ! ! ! !+ +----+----+-----+ + + +!Di st CCA !42 !7.86!60 ! ! ! !+ +----+----+-----+--------- ---+ + +!Prox ICA !45.6!18.5!60 ! ! ! !+ +----+----+-----+ + + +!Di st ICA!51.1!13 !60 ! ! ! !+ +----+----+-----+-------- ----+ + +!Prox ECA !93.8!7.62!60 ! ! ! !+ +----+----+-----+ + + +!Ve rtebral !35.4!11 !60 ! ! ! !+ +----+----+-----+------- -----+ + +!Prox Subclavian!60.9! !60 ! ! ! !+ +----+----+-----+ + + + - Additional Measurements:ICAPSV/CCAPSV 1.22.ICAEDV/CCAEDV 1.26.Carotid Left Measurements+ +----+-- --+-----+ + + +!Location !PSV !EDV !Angle!%Stenosis 2D!%Stenosis Doppler!Tortuosity !+ +----+----+-----+ + + +!Prox CCA !72.1!15.8!60 ! ! ! !+ +----+- ---+-----+ + + +!Dist CCA !48.7!10.2!60 ! ! ! !+ +----+----+-----+ + +--------- --+!Prox ICA !44 !21.1!60 ! ! ! !+ +----+ ----+-----+ + + +!Dist ICA !55.4!22.9!54 ! ! ! !+ +----+----+-----+ + +-------- ---+!Prox ECA !95 !17 !60 ! ! ! !+ +---- +----+-----+ + + +!Vertebral !20.9! !54 ! ! ! !+ +----+----+-----+ + +------- ----+!Prox Subclavian!51.1! !60 ! ! ! !+ +----+----+-----+ + + + - Additional Measurements:ICAPSV/CCAPSV 1.14.ICAEDV/CCAEDV 1.45.[facility] HospitalRAD, CHEST, 1 VIEW, NON [id number] 13:31:00Reason for exam:- >Status post CV Surgery post op day 0Should this be performed at the bedside?->YesFINAL REPORT RAD, CHEST, 1 VIEW, NON DEPT INDICATION: Status post CV Surgery post op day 0 COMPARISON: Prior day's exam FINDINGS: Portable frontal view of the chest. IMPRESSION: Support Lines: IJ catheter tip overlies the SVC. ET tube and NG tube are unchanged. Left chest tube.Lungs and pleura: Unchanged airspace and pleural opacities. No pneumothorax.Heart and mediastinum: Stable contours. Stable surgical changes.Additional findings: None. Signed: Airam Jhaveri MDReport Verified Date/Time: 09/06/2019 13:31:11 Reading Location: [facility] C013W Consult Reading Room CALCIUM, [id number] 13:15:00 Test Item Value Reference Range Interpretation Comments CALCIUM IONIZED (BEAKER) (test 1.10 mmol/L 1.12-1.27 L code = 698) PH, BLOOD (BEAKER) (test code = 7.44 1810) RAD, CHEST, 1 VIEW, NON [id number] 13:07:00Reason for exam:->POST CV SURGERYShould this be performed at the bedside?->YesFINAL REPORT RAD, CHEST, 1 VIEW, NON DEPT INDICATION: POST CV SURGERY COMPARISON: Prior day's exam FINDINGS: Portable frontal view of the chest. IMPRESSION: Support Lines: Stable. Lungs and pleura: Unchanged airspace and pleural opacities. No pneumothorax.Heart and mediastinum: Stable contours. Stable surgical changes.Additional findings: None. Signed: Airam Jhaveri MDReport Verified Date/Time: 09/06/2019 13:07:25 Reading Location: [facility] C013W Consult Reading Room Comprehensive metabolic [id number] 12:21:00 Test Item Value Reference Range Interpretation Comments Protein, Total (test 5.8 6.0- 8.3 gm/dL L Speci men slightly code = 2885-2) hemolyzed Albumin (test code = 3.4 g/dL 3.5-5 L Specime n slightly 57367-5) hemolyzed Alkaline Phosphatase 62 U/L 40-150 (test code = 6768-6) Total Bilirubin (test 2.3 mg/dL 0.2-1.2 H Specim en slightly code = 1975-2) hemolyzed Sodium (test code = 137 meq/L 874-807 8778-2) Potassium (test code = 4.6 meq/L 3.5-5.1 Speci men slightly 2823-3) hemolyzed Chloride (test code = 108 meq/L 98-107 H 2075-0) CO2 (test code = 22 meq/L 22-29 8-9) BUN (test code = 29 mg/dL 7-21 H 3094-0) Creatinine (test code 1.04 mg/dL 0.57-1.25 Specim en slightly = 2160-0) hemolyzed Glucose (test code = 194 mg/dL 70-105 H 2345-7) Calcium (test code = 8.1 mg/dL 8.4-10.2 L 26384-3) AST (test code = 33 U/L 5-34 Specimen sl ightly 1920-8) hemolyzed ALT (test code = 15 U/L 6-55 Specimen sl ightly 1742-6) hemolyzed EGFR (test code = 71 mL/min/1.73 [place] [address]-5) NOT ACCURATE CREATININE CLEARANCE IN PREDICTING GLOMERULAR FILTRATION RATE . ESTIMATED GFR I S NOT APPLICABLE FOR DIALYSIS PATIENTS. TODD (test code = TODD) Specimen slightly icteric Lab Interpretation Abnormal (test code = 22140-7) [facility] [id number] 12:21:00 Test Item Value Reference Range Interpretation Comments TOTAL PROTEIN 5.8 gm/dL 6.0-8.3 L Specimen sligh tly (BEAKER) (test code = hemoly zed 770) ALBUMIN (BEAKER) 3.4 g/dL 3.5-5.0 L Specimen sl ightly (test code = 1145) hemolyzed ALKALINE PHOSPHATASE 62 U/L 40-150 (BEAKER) (test code = 346) BILIRUBIN TOTAL 2.3 mg/dL 0.2-1.2 H Specimen sli ghtly (BEAKER) (test code = hemoly zed 377) SODIUM (BEAKER) (test 137 meq/L 136-145 code = 381) POTASSIUM (BEAKER) 4.6 meq/L 3.5-5.1 Specimen slightly (test code = 379) hemolyzed CHLORIDE (BEAKER) 108 meq/L 98-107 H (test code = 382) CO2 (BEAKER) (test 22 meq/L 22-29 code = 355) BLOOD UREA NITROGEN 29 mg/dL 7-21 H (BEAKER) (test code = 354) CREATININE (BEAKER) 1.04 mg/dL 0.57-1.25 Specimen slightly (test code = 358) hemolyzed GLUCOSE RANDOM 194 mg/dL 70-105 H (BEAKER) (test code = 652) CALCIUM (BEAKER) 8.1 mg/dL 8.4-10.2 L (test code = 697) AST (SGOT) (BEAKER) 33 U/L 5-34 Specimen slightly (test code = 353) hemolyzed ALT (SGPT) (BEAKER) 15 U/L 6-55 Specimen slightly (test code = 347) hemolyzed EGFR (BEAKER) (test 71 mL/min/1.73 ESTIMA NATALIA GFR IS code = 1092) sq m NOT ACCURATE CREATININE CLEARANCE IN PREDICTING GLOMERULAR FILTRATION RATE . ESTIMATED GFR I S NOT APPLICABLE FOR DIALYSIS PATIEN TS. Specimen slightly ictericBASIC METABOLIC [id number] 12:21:00 Test Item Value Reference Range Interpretation Comments SODIUM (BEAKER) 137 meq/L 136-145 (test code = 381) POTASSIUM (BEAKER) 4.6 meq/L 3.5-5.1 Specimen slightly (test code = 379) hemolyzed CHLORIDE (BEAKER) 108 meq/L 98-107 H (test code = 382) CO2 (BEAKER) (test 22 meq/L 22-29 code = 355) BLOOD UREA NITROGEN 29 mg/dL 7-21 H (BEAKER) (test code = 354) CREATININE (BEAKER) 1.04 mg/dL 0.57-1.25 Specimen slightly (test code = 358) hemolyzed GLUCOSE RANDOM 194 mg/dL 70-105 H (BEAKER) (test code = 652) CALCIUM (BEAKER) 8.1 mg/dL 8.4-10.2 L (test code = 697) EGFR (BEAKER) (test 71 mL/min/1.73 ESTIMA NATALIA GFR IS code = 1092) sq m NOT ACCURATE CREATININE CLEARANCE IN PREDICTING GLOMERULAR FILTRATION RATE . ESTIMATED GFR I S NOT APPLICABLE FOR DIALYSIS PATIEN TS. Specimen slightly [id number] 12:20:00 Test Item Value Reference Range Interpretation Comments Fibrinogen (test code = 3255-7) 299 mg/dl 225-434 Lab Interpretation (test code = Normal 91806-6) [facility] HospitalProthromin time/[id number] 12:20:00 Test Item Value Reference Range Interpretation Comments Protime (test code = 18.0 11.9- 14.2 H 5902-2) seconds INR (test code = 1.6 <=5.9 6301-6) TODD (test code = TODD) Effective 03/06/2019: PT Reference Range ChangeNew: 11.9-14.2 Previous: 11.7-14.7 RECOMMENDED COUMADIN/WARFARIN INR THERAPY RANGESSTANDARD DOSE: 2.0-3.0 Includes: PROPHYLAXIS for venous thrombosis, systemic embolization; TREATMENT for venous thrombosis and/or pulmonary embolus.HIGH RISK: Target INR is 2.5-3.5 for patients wiht mechanical heart valves. Lab Interpretation Abnormal (test code = 21501-7) [facility] HospitalaPTT2019-[facility] 12:20:00 Test Item Value Reference Range Interpretation Comments PTT (test code = 08991-1) 35.7 22.5- 36.0 seconds Lab Interpretation (test code = Normal 95706-0) [facility] HospitalPROTHROMBIN TIME/[id number] 12:20:00 Test Item Value Reference Range Interpretation Comments PROTIME (BEAKER) (test code = 18.0 seconds 11.9-14.2 H 759) INR (BEAKER) (test code = 370) 1.6 <=5.9 Effective 03/06/2019: PT Reference Range ChangeNew: 11.9-14.2 Previous: 11.7- 14.7RECOMMENDED COUMADIN/WARFARIN INR THERAPY RANGESSTANDARD DOSE: 2.0-3.0 Includes: PROPHYLAXIS for venous thrombosis, systemic embolization; TREATMENT for venous thrombosis and/or pulmonary embolus.HIGH RISK: Target INR is2.5-3.5 for patients wiht mechanical heart valves.[id number] 12:20:00 Test Item Value Reference Range Interpretation Comments FIBRINOGEN LEVEL (BEAKER) (test 299 mg/dl 225-434 code = 658) [id number] 12:20:00 Test Item Value Reference Range Interpretation Comments MAGNESIUM (BEAKER) 2.1 mg/dL 1.6-2.6 Specimen slightly (test code = 627) hemolyzed [id number] 12:20:00 Test Item Value Reference Range Interpretation Comments PHOSPHORUS (BEAKER) 2.8 mg/dL 2.3-4.7 Specimen slightly (test code = 604) hemolyzed [id number] 12:20:00 Test Item Value Reference Range Interpretation Comments PARTIAL THROMBOPLASTIN TIME 35.7 seconds 22.5-36.0 (BEAKER) (test code = 760) LACTIC ACID, [id number] 12:08:00 Test Item Value Reference Range Interpretation Comments LACTATE BLOOD 1.0 mmol/L 0.5-2.2 Specimen sligh tly ARTERIAL (2) (BEAKER) hemoly zed (test code = 2874) Specimen slightly ictericCBC W/PLT COUNT & AUTO [id number] 12:01:00 Test Item Value Reference Range Interpretation Comments WHITE BLOOD CELL COUNT (BEAKER) 12.9 K/ L 3.5-10.5 H (test code = 775) RED BLOOD CELL COUNT (BEAKER) 4.63 M/ L 4.63-6.08 (test code = 761) HEMOGLOBIN (BEAKER) (test code = 13.9 GM/DL 13.7-17.5 410) HEMATOCRIT (BEAKER) (test code = 41.5 % 40.1-51.0 411) MEAN CORPUSCULAR VOLUME (BEAKER) 89.6 fL 79.0-92.2 (test code = 753) MEAN CORPUSCULAR HEMOGLOBIN 30.0 pg 25.7-32.2 (BEAKER) (test code = 751) MEAN CORPUSCULAR HEMOGLOBIN CONC 33.5 GM/DL 32.3-36.5 (BEAKER) (test code = 752) RED CELL DISTRIBUTION WIDTH 14.0 % 11.6-14.4 (BEAKER) (test code = 412) PLATELET COUNT (BEAKER) (test 163 K/CU MM 150-450 code = 756) MEAN PLATELET VOLUME (BEAKER) 11.8 fL 9.4-12.4 (test code = 754) NUCLEATED RED BLOOD CELLS 0 /100 WBC 0-0 (BEAKER) (test code = 413) NEUTROPHILS RELATIVE PERCENT 80 % (BEAKER) (test code = 429) LYMPHOCYTES RELATIVE PERCENT 12 % (BEAKER) (test code = 430) MONOCYTES RELATIVE PERCENT 6 % (BEAKER) (test code = 431) EOSINOPHILS RELATIVE PERCENT 1 % (BEAKER) (test code = 432) BASOPHILS RELATIVE PERCENT 0 % (BEAKER) (test code = 437) NEUTROPHILS ABSOLUTE COUNT 10.34 K/ L 1.78-5.38 H (BEAKER) (test code = 670) LYMPHOCYTES ABSOLUTE COUNT 1.50 K/ L 1.32-3.57 (BEAKER) (test code = 414) MONOCYTES ABSOLUTE COUNT (BEAKER) 0.72 K/ L 0.30-0.82 (test code = 415) EOSINOPHILS ABSOLUTE COUNT 0.15 K/ L 0.04-0.54 (BEAKER) (test code = 416) BASOPHILS ABSOLUTE COUNT (BEAKER) 0.05 K/ L 0.01-0.08 (test code = 417) IMMATURE GRANULOCYTES-RELATIVE 1 % 0-1 PERCENT (BEAKER) (test code = 2801) HGB/HCT (H&H)-Stat [id number] 11:56:00 Test Item Value Reference Range Interpretation Comments Hemoglobin (test code = 786-4) 14.6 g/dL 13-16.8 Hematocrit (test code = 4544-3) 43.0 % 40-50 Lab Interpretation (test code = Normal 48728-0) [facility] HospitalGlucose-Stat [id number] 11:56:00 Test Item Value Reference Range Interpretation Comments Glucose (test code = 2345-7) 194 mg/dL 70-110 H Lab Interpretation (test code = Abnormal 17652-3) [facility] [id number] 11:56:00 Test Item Value Reference Range Interpretation Comments Sodium (test code = 2951-2) 137 meq/L 135-148 Lab Interpretation (test code = Normal 17717-9) [facility] HospitalPotassium-Stat [id number] 11:56:00 Test Item Value Reference Range Interpretation Comments Potassium (test code = 2823-3) 4.4 meq/L 3.6-5.5 Lab Interpretation (test code = Normal 89693-0) [facility] Center[facility] NA-STAT [id number] 11:56:00 Test Item Value Reference Range Interpretation Comments SODIUM (BEAKER) (test code = 381) 137 meq/L 135-148 POTASSIUM-STAT [id number] 11:56:00 Test Item Value Reference Range Interpretation Comments POTASSIUM (BEAKER) (test code = 4.4 meq/L 3.6-5.5 379) HGB/HCT (H&H) - STAT [id number] 11:56:00 Test Item Value Reference Range Interpretation Comments HEMOGLOBIN (BEAKER) (test code = 14.6 g/dL 13.0-16.8 410) HEMATOCRIT (BEAKER) (test code = 43.0 % 40.0-50.0 411) GLUCOSE-STAT [id number] 11:56:00 Test Item Value Reference Range Interpretation Comments GLUCOSE RANDOM (BEAKER) (test code 194 mg/dL 70-110 H = 652) BLOOD GAS, [id number] 11:56:00 Test Item Value Reference Range Interpretation Comments PH ARTERIAL (BEAKER) (test code = 7.46 7.35-7.45 H 383) PCO2 ARTERIAL (BEAKER) (test code 31 mmHg 35-45 L = 384) PO2 ARTERIAL (BEAKER) (test code 170 mmHg 80-90 H = 385) O2 SATURATION ARTERIAL (BEAKER) 99.3 % 96.0-97.0 H (test code = 386) HCO3 ARTERIAL (BEAKER) (test code 22 mmol/L 21-29 = 388) BASE EXCESS ARTERIAL (BEAKER) -1.3 mmol/L -2.0-3.0 (test code = 387) PATIENT TEMPERATURE (BEAKER) 35.6 C (test code = 1818) FIO2 (BEAKER) (test code = 1819) 60.0 % OXYGEN SATURATION, [id number] 11:56:00 Test Item Value Reference Range Interpretation Comments O2 SATURATION (MEASURED) (BEAKER) 66.5 % (test code = 1455) POC ACTIVATED CLOTTING [id number] 10:45:00 Test Item Value Reference Range Interpretation Comments Activated Clotting Time 120 sec Refe rence Range: 74-137 (test code = 441) seconds, B aseline/TESTED AT [place] [address] [place] [address] [facility] HospitalPOCT-[id number] 10:45:00 Test Item Value Reference Range Interpretation Comments ACTIVATED CLOTTING TIME 120 sec Refe rence Range: (BEAKER) (test code = 74-137 seconds, 441) Baseline/TESTED AT [address] [address] [id number] 10:45:00 Test Item Value Reference Range Interpretation Comments ACTIVATED CLOTTING TIME 543 sec Refe rence Range: (BEAKER) (test code = 74-137 seconds, 441) Baseline/TESTED AT [address] [address] [id number] 10:45:00 Test Item Value Reference Range Interpretation Comments ACTIVATED CLOTTING TIME 588 sec Refe rence Range: (BEAKER) (test code = 74-137 seconds, 441) Baseline/TESTED AT [address] [address] [id number] 10:45:00 Test Item Value Reference Range Interpretation Comments ACTIVATED CLOTTING TIME 538 sec Refe rence Range: (BEAKER) (test code = 74-137 seconds, 441) Baseline/TESTED AT [place] [id number] [facility] [address] [id number] 10:45:00 Test Item Value Reference Range Interpretation Comments ACTIVATED CLOTTING TIME 147 sec Refe rence Range: (BEAKER) (test code = 74-137 seconds, 441) Baseline/TESTED AT [address] [address] CALCIUM, [id number] 10:38:00 Test Item Value Reference Range Interpretation Comments CALCIUM IONIZED (BEAKER) (test 1.00 mmol/L 1.12-1.27 L code = 698) PH, BLOOD (BEAKER) (test code = 7.42 1810) BLOOD GAS, [id number] 10:38:00 Test Item Value Reference Range Interpretation Comments PH ARTERIAL (BEAKER) (test code = 7.44 7.35-7.45 383) PCO2 ARTERIAL (BEAKER) (test code 34 mmHg 35-45 L = 384) PO2 ARTERIAL (BEAKER) (test code 529 mmHg 80-90 H = 385) O2 SATURATION ARTERIAL (BEAKER) 99.9 % 96.0-97.0 H (test code = 386) HCO3 ARTERIAL (BEAKER) (test code 23 mmol/L -29 = 388) BASE EXCESS ARTERIAL (BEAKER) -0.7 mmol/L -2.0-3.0 (test code = 387) PATIENT TEMPERATURE (BEAKER) 35.6 C (test code = 1818) FIO2 (BEAKER) (test code = 1819) 95.0 % SODIUM NA-STAT [id number] 10:38:00 Test Item Value Reference Range Interpretation Comments SODIUM (BEAKER) (test code = 381) 133 meq/L 135-148 L POTASSIUM-STAT [id number] 10:38:00 Test Item Value Reference Range Interpretation Comments POTASSIUM (BEAKER) (test code = 5.6 meq/L 3.6-5.5 H 379) GLUCOSE-STAT [id number] 10:38:00 Test Item Value Reference Range Interpretation Comments GLUCOSE RANDOM (BEAKER) (test code 198 mg/dL 70-110 H = 652) HGB/HCT (H&H) - STAT [id number] 10:38:00 Test Item Value Reference Range Interpretation Comments HEMOGLOBIN (BEAKER) (test code = 13.1 g/dL 13.0-16.8 410) HEMATOCRIT (BEAKER) (test code = 39.0 % 40.0-50.0 L 411) BLOOD GAS, [id number] 09:41:00 Test Item Value Reference Range Interpretation Comments PH ARTERIAL (BEAKER) (test code = 7.44 7.35-7.45 383) PCO2 ARTERIAL (BEAKER) (test code 35 mmHg 35-45 = 384) PO2 ARTERIAL (BEAKER) (test code 295 mmHg 80-90 H = 385) O2 SATURATION ARTERIAL (BEAKER) 99.7 % 96.0-97.0 H (test code = 386) HCO3 ARTERIAL (BEAKER) (test code 24 mmol/L 21-29 = 388) BASE EXCESS ARTERIAL (BEAKER) -1.0 mmol/L -2.0-3.0 (test code = 387) PATIENT TEMPERATURE (BEAKER) 33.6 C (test code = 1818) FIO2 (BEAKER) (test code = 1819) 79.0 % SODIUM NA-STAT [id number] 09:41:00 Test Item Value Reference Range Interpretation Comments SODIUM (BEAKER) (test code = 381) 134 meq/L 135-148 L POTASSIUM-STAT [id number] 09:41:00 Test Item Value Reference Range Interpretation Comments POTASSIUM (BEAKER) (test code = 5.7 meq/L 3.6-5.5 H 379) GLUCOSE-STAT [id number] 09:41:00 Test Item Value Reference Range Interpretation Comments GLUCOSE RANDOM (BEAKER) (test code 200 mg/dL 70-110 H = 652) HGB/HCT (H&H) - STAT [id number] 09:41:00 Test Item Value Reference Range Interpretation Comments HEMOGLOBIN (BEAKER) (test code = 11.8 g/dL 13.0-16.8 L 410) HEMATOCRIT (BEAKER) (test code = 35.0 % 40.0-50.0 L 411) Hemoglobin [id number] 09:35:00 Test Item Value Reference Range Interpretation Comments Hemoglobin A1C (test code = 4548-4) 6.7 % 4.3-6.1 H Lab Interpretation (test code = Abnormal 47825-9) [facility] HospitalHEMOGLOBIN [id number] 09:35:00 Test Item Value Reference Range Interpretation Comments HEMOGLOBIN A1C (BEAKER) (test code = 6.7 % 4.3-6.1 H 368) [id number] 09:19:39Regan Patel Jr., MD - 09/06/2019 9:19 AM CST TEEDate: 09/06/2019 9:19 AM Sex: Male Location: OR Examiner: Regan Patel Jr., Stan Santoyo Patient screened for esoph disease: Yes Insertion: easy Probe Type: multiplane Modalities: CWD, PWD, CFM and 2D Ventricles Cavity size Dimension Hypertrophy Thrombus Global FXN EF Rightventricle Left ventricle 30% Pre Intervention Summary: Aorta: No aneurysm, no dissection,no mobile plaquesAV: trileaflet morphology, No aortic stenosis, No aortic regurgitationLV: Severly di lated chamber size (212cm2), No LVH, moderate to severe reduction in systolic function (EF 25-30% byqualitative assessment and ma's), No RWMA, no thrombusMV: normal morphology, trace, central, ischemic mitral regurgitation, No mitral stenosis (mean PG 1mmHg)LA: no LUTHER thrombus, normal size and functionPV: limited visualizationRV: mod dilated sized chamber, mildly reduced function, no thrombusTV: normal morphology, trace tricuspid regurgitationRA: no thrombusNo PFO by color dopper flowAll findings communicated to surgical team. Post Intervention Summary:[facility] HospitalBLOOD GAS, [id number] 09:17:00 Test Item Value Reference Range Interpretation Comments PH ARTERIAL (BEAKER) (test code = 7.44 7.35-7.45 383) PCO2 ARTERIAL (BEAKER) (test code 32 mmHg 35-45 L = 384) PO2 ARTERIAL (BEAKER) (test code 426 mmHg 80-90 H = 385) O2 SATURATION ARTERIAL (BEAKER) 99.8 % 96.0-97.0 H (test code = 386) HCO3 ARTERIAL (BEAKER) (test code 23 mmol/L - = 388) BASE EXCESS ARTERIAL (BEAKER) -2.9 mmol/L -2.0-3.0 L (test code = 387) PATIENT TEMPERATURE (BEAKER) 27.8 C (test code = 1818) FIO2 (BEAKER) (test code = 1819) 80.0 % SODIUM NA-STAT [id number] 09:17:00 Test Item Value Reference Range Interpretation Comments SODIUM (BEAKER) (test code = 381) 133 meq/L 135-148 L GLUCOSE-STAT [id number] 09:17:00 Test Item Value Reference Range Interpretation Comments GLUCOSE RANDOM (BEAKER) (test code 183 mg/dL 70-110 H = 652) HGB/HCT (H&H) - STAT [id number] 09:17:00 Test Item Value Reference Range Interpretation Comments HEMOGLOBIN (BEAKER) (test code = 10.5 g/dL 13.0-16.8 L 410) HEMATOCRIT (BEAKER) (test code = 31.0 % 40.0-50.0 L 411) POTASSIUM-STAT [id number] 09:12:00 Test Item Value Reference Range Interpretation Comments POTASSIUM (BEAKER) (test code = 4.7 meq/L 3.6-5.5 379) CALCIUM, [id number] 08:50:00 Test Item Value Reference Range Interpretation Comments CALCIUM IONIZED (BEAKER) (test 1.06 mmol/L 1.12-1.27 L code = 698) PH, BLOOD (BEAKER) (test code = 7.37 1810) BLOOD GAS, [id number] 08:50:00 Test Item Value Reference Range Interpretation Comments PH ARTERIAL (BEAKER) (test code = 7.39 7.35-7.45 383) PCO2 ARTERIAL (BEAKER) (test code 40 mmHg 35-45 = 384) PO2 ARTERIAL (BEAKER) (test code 153 mmHg 80-90 H = 385) O2 SATURATION ARTERIAL (BEAKER) 99.0 % 96.0-97.0 H (test code = 386) HCO3 ARTERIAL (BEAKER) (test code 24 mmol/L - = 388) BASE EXCESS ARTERIAL (BEAKER) -1.7 mmol/L -2.0-3.0 (test code = 387) PATIENT TEMPERATURE (BEAKER) 35.6 C (test code = 1818) FIO2 (BEAKER) (test code = 1819) 59.0 % GLUCOSE-STAT [id number] 08:50:00 Test Item Value Reference Range Interpretation Comments GLUCOSE RANDOM (BEAKER) (test code 141 mg/dL 70-110 H = 652) SODIUM NA-STAT [id number] 08:49:00 Test Item Value Reference Range Interpretation Comments SODIUM (BEAKER) (test code = 381) 139 meq/L 135-148 POTASSIUM-STAT [id number] 08:49:00 Test Item Value Reference Range Interpretation Comments POTASSIUM (BEAKER) (test code = 4.0 meq/L 3.6-5.5 379) HGB/HCT (H&H) - STAT [id number] 08:49:00 Test Item Value Reference Range Interpretation Comments HEMOGLOBIN (BEAKER) (test code = 15.5 g/dL 13.0-16.8 410) HEMATOCRIT (BEAKER) (test code = 46.0 % 40.0-50.0 411) BLOOD GAS, [id number] 08:23:00 Test Item Value Reference Range Interpretation Comments PH ARTERIAL (BEAKER) (test code = 7.42 7.35-7.45 383) PCO2 ARTERIAL (BEAKER) (test code 38 mmHg 35-45 = 384) PO2 ARTERIAL (BEAKER) (test code = 111 mmHg 80-90 H 385) O2 SATURATION ARTERIAL (BEAKER) 98.3 % 96.0-97.0 H (test code = 386) HCO3 ARTERIAL (BEAKER) (test code 25 mmol/L 21-29 = 388) BASE EXCESS ARTERIAL (BEAKER) 0.0 mmol/L -2.0-3.0 (test code = 387) PATIENT TEMPERATURE (BEAKER) (test 35.6 C code = 1818) FIO2 (BEAKER) (test code = 1819) 64.0 % GLUCOSE-STAT [id number] 08:23:00 Test Item Value Reference Range Interpretation Comments GLUCOSE RANDOM (BEAKER) (test code 136 mg/dL 70-110 H = 652) HGB/HCT (H&H) - STAT [id number] 08:23:00 Test Item Value Reference Range Interpretation Comments HEMOGLOBIN (BEAKER) (test code = 17.1 g/dL 13.0-16.8 H 410) HEMATOCRIT (BEAKER) (test code = 50.0 % 40.0-50.0 411) SODIUM NA-STAT [id number] 08:21:00 Test Item Value Reference Range Interpretation Comments SODIUM (BEAKER) (test code = 381) 137 meq/L 135-148 POTASSIUM-STAT [id number] 08:21:00 Test Item Value Reference Range Interpretation Comments POTASSIUM (BEAKER) (test code = 3.5 meq/L 3.6-5.5 L 379) CALCIUM, [id number] 08:21:00 Test Item Value Reference Range Interpretation Comments CALCIUM IONIZED (BEAKER) (test 1.14 mmol/L 1.12-1.27 code = 698) PH, BLOOD (BEAKER) (test code = 7.40 1810) Prepare [id number] 07:11:00 Test Item Value Reference Range Interpretation Comments CROSSMATCH (test code = 2264) COMPATIBLE Unit ABO (test code = O Pos 6523020) UNIT NUMBER (test code = [id number] 934-0) Status (test code = 5470602) READY Blood Bank Product (test code RED BLOOD CELLS = 2263) PRODUCT CODE (test code = Q9259Y09 933-2) [facility] HospitalABORH, [id number] 03:11:00 Test Item Value Reference Range Interpretation Comments Rh Factor (test code = 2589) POS ABO Grouping (test code = 2588) O [facility] HospitalPT/[id number] 03:08:00 Test Item Value Reference Range Interpretation Comments Protime (test code = 15.0 11.9- 14.2 H 5902-2) seconds INR (test code = 1.2 <=5.9 6301-6) PTT (test code = 38.8 22.5- 36.0 H 54162-9) seconds TODD (test code = TODD) Effective 03/06/2019: PT Reference Range ChangeNew: 11.9-14.2 Previous: 11.7-14.7 RECOMMENDED COUMADIN/WARFARIN INR THERAPY RANGESSTANDARD DOSE: 2.0-3.0 Includes: PROPHYLAXIS for venous thrombosis, systemic embolization; TREATMENT for venous thrombosis and/or pulmonary embolus.HIGH RISK: Target INR is 2.5-3.5 for patients wiht mechanical heart valves. Lab Interpretation Abnormal (test code = 39539-0) [facility] HospitalPROTHROMBIN TIME/[id number] 03:08:00 Test Item Value Reference Range Interpretation Comments PROTIME (BEAKER) (test code = 15.0 seconds 11.9-14.2 H 759) INR (BEAKER) (test code = 370) 1.2 <=5.9 Effective 03/06/2019: PT Reference Range ChangeNew: 11.9-14.2 Previous: 11.7- 14.7RECOMMENDED COUMADIN/WARFARIN INR THERAPY RANGESSTANDARD DOSE: 2.0-3.0 Includes: PROPHYLAXIS for venous thrombosis, systemic embolization; TREATMENT for venous thrombosis and/or pulmonary embolus.HIGH RISK: Target INR is2.5-3.5 for patients wiht mechanical heart valves.PT/[id number] 03:08:00 Test Item Value Reference Range Interpretation Comments PROTIME (BEAKER) (test code = 15.0 seconds 11.9-14.2 H 759) INR (BEAKER) (test code = 370) 1.2 <=5.9 PARTIAL THROMBOPLASTIN TIME 38.8 seconds 22.5-36.0 H (BEAKER) (test code = 760) Effective 03/06/2019: PT Reference Range ChangeNew: 11.9-14.2 Previous: 11.7- 14.7RECOMMENDED COUMADIN/WARFARIN INR THERAPY RANGESSTANDARD DOSE: 2.0-3.0 Includes: PROPHYLAXIS for venous thrombosis, systemic embolization; TREATMENT for venous thrombosis and/or pulmonary embolus.HIGH RISK: Target INR is2.5-3.5 for patients wiht mechanical heart valves.Lipid [id number] 03:06:00 Test Item Value Reference Range Interpretation Comments Triglycerides (test 203 mg/dL code = 2571-8) Cholesterol (test code 231 mg/dL = 2093-3) HDL (test code = 37 mg/dL 2085-9) LDL Calculated (test 153 mg/dL code = 59597-7) TODD (test code = TODD) Triglyceride Reference Range: Low Risk <150 Borderline 150-199 High Risk 200-499 Very High Risk >=500 Cholesterol Reference Range: Low Risk <200 Borderline 200-239 High Risk >240 HDL Cholesterol Reference Range: Low Risk >=60 High Risk <40 LDL Cholesterol Reference Range: Optimal <100 Near Optimal 100-129 Borderline 130-159 High 160-189 Very High >=190 Specimen slightly icteric [id number] 03:06:00 Test Item Value Reference Range Interpretation Comments PHOSPHORUS (BEAKER) (test code = 4.3 mg/dL 2.3-4.7 604) BASIC METABOLIC [id number] 03:06:00 Test Item Value Reference Range Interpretation Comments SODIUM (BEAKER) 142 meq/L 136-145 (test code = 381) POTASSIUM (BEAKER) 3.7 meq/L 3.5-5.1 (test code = 379) CHLORIDE (BEAKER) 105 meq/L 98-107 (test code = 382) CO2 (BEAKER) (test 25 meq/L 22-29 code = 355) BLOOD UREA NITROGEN 35 mg/dL 7-21 H (BEAKER) (test code = 354) CREATININE (BEAKER) 1.38 mg/dL 0.57-1.25 H (test code = 358) GLUCOSE RANDOM 117 mg/dL 70-105 H (BEAKER) (test code = 652) CALCIUM (BEAKER) 9.6 mg/dL 8.4-10.2 (test code = 697) EGFR (BEAKER) (test 51 mL/min/1.73 ESTIMA NATALIA GFR IS code = 1092) sq m NOT ACCURATE CREATININE CLEARANCE IN PREDICTING GLOMERULAR FILTRATION RATE . ESTIMATED GFR I S NOT APPLICABLE FOR DIALYSIS PATIEN TS. Specimen slightly ictericLIPID [id number] 03:06:00 Test Item Value Reference Range Interpretation Comments TRIGLYCERIDES (BEAKER) (test code = 203 mg/dL 540) CHOLESTEROL (BEAKER) (test code = 231 mg/dL 631) HDL CHOLESTEROL (BEAKER) (test code 37 mg/dL = 976) LDL CHOLESTEROL CALCULATED (BEAKER) 153 mg/dL (test code = 633) Triglyceride Reference Range: Low Risk <150 Borderline 150-199 High Risk 200-499 Very High Risk >=500Cholesterol Reference Range: Low Risk <200 Borderline 200-239 High Risk >240HDL Cholesterol Reference Range: Low Risk >=60 High Risk <40LDL Cholesterol Reference Range: Optimal <100 Near Optimal 100-129 Borderline 130-159 High 160-189 Very High >=190 Specimen slightly ictericCBC W/PLT COUNT & AUTO DIFFERENTIAL 2019-09-06 02:50:00 Test Item Value Reference Range Interpretation Comments WHITE BLOOD CELL COUNT (BEAKER) 6.1 K/ L 3.5-10.5 (test code = 775) RED BLOOD CELL COUNT (BEAKER) 5.75 M/ L 4.63-6.08 (test code = 761) HEMOGLOBIN (BEAKER) (test code = 16.8 GM/DL 13.7-17.5 410) HEMATOCRIT (BEAKER) (test code = 50.6 % 40.1-51.0 411) MEAN CORPUSCULAR VOLUME (BEAKER) 88.0 fL 79.0-92.2 (test code = 753) MEAN CORPUSCULAR HEMOGLOBIN 29.2 pg 25.7-32.2 (BEAKER) (test code = 751) MEAN CORPUSCULAR HEMOGLOBIN CONC 33.2 GM/DL 32.3-36.5 (BEAKER) (test code = 752) RED CELL DISTRIBUTION WIDTH 14.0 % 11.6-14.4 (BEAKER) (test code = 412) PLATELET COUNT (BEAKER) (test 192 K/CU MM 150-450 code = 756) MEAN PLATELET VOLUME (BEAKER) 11.4 fL 9.4-12.4 (test code = 754) NUCLEATED RED BLOOD CELLS 0 /100 WBC 0-0 (BEAKER) (test code = 413) NEUTROPHILS RELATIVE PERCENT 64 % (BEAKER) (test code = 429) LYMPHOCYTES RELATIVE PERCENT 22 % (BEAKER) (test code = 430) MONOCYTES RELATIVE PERCENT 10 % (BEAKER) (test code = 431) EOSINOPHILS RELATIVE PERCENT 3 % (BEAKER) (test code = 432) BASOPHILS RELATIVE PERCENT 1 % (BEAKER) (test code = 437) NEUTROPHILS ABSOLUTE COUNT 3.91 K/ L 1.78-5.38 (BEAKER) (test code = 670) LYMPHOCYTES ABSOLUTE COUNT 1.35 K/ L 1.32-3.57 (BEAKER) (test code = 414) MONOCYTES ABSOLUTE COUNT (BEAKER) 0.59 K/ L 0.30-0.82 (test code = 415) EOSINOPHILS ABSOLUTE COUNT 0.20 K/ L 0.04-0.54 (BEAKER) (test code = 416) BASOPHILS ABSOLUTE COUNT (BEAKER) 0.04 K/ L 0.01-0.08 (test code = 417) IMMATURE GRANULOCYTES-RELATIVE 0 % 0-1 PERCENT (BEAKER) (test code = 2801) POCT-GLUCOSE [id number] 21:47:00 Test Item Value Reference Range Interpretation Comments POC-GLUCOSE METER 182 mg/dL 70-110 H : TESTED A T [facility] 6720 (BEAKER) (test code = [employer] [facility], 1538) [id number]: Cloud Systems Architect/Techni alfonzo ID = [id number] for RO NAVIN, EMY POCT-GLUCOSE [id number] 17:06:00 Test Item Value Reference Range Interpretation Comments POC-GLUCOSE METER 84 mg/dL 70-110 : TESTED A T [facility] 6720 (BEAKER) (test code = [employer] [facility], 1538) [id number]: Cloud Systems Architect/Techni alfonzo ID = [id number] for COLLEEN AGNESMICHELLE CASSIDY Type and screen, [id number] 16:21:00 Test Item Value Reference Range Interpretation Comments ABO/RH AUTOMATED (BEAKER) (test O POSITIVE code = 2260) Ab Scrn (test code = 890-4) [facility], NON [id number] 15:10:00 Reason for exam:->Pre op screenShould this be performed at the bedside?->YesFINAL REPORT TECHNIQUE: Frontal view of the chest. INDICATION: Pre op screen.COMPARISON: None. FINDINGS: LINES/TUBES: None. LUNGS: The lungs are well inflated and clear. No consolidation or pulmonary edema. PLEURA: Mild blunting of the costophrenic sulci. HEART AND MEDIASTINUM: The cardiomediastinal silhouette is within normal limits. SOFT TISSUES AND BONES: Unremarkable. IMPRESSION: The mild blunting of the costophrenic sulci is nonspecific and could be due to subpleural fat or trace effusions. Consider further evaluation with a two view chest radiograph. Signed: Shay Greenwood MDReport Verified Date/Time: 09/05/2019 15:10:34 Reading Location: [facility] B1 C013Y CT Body Reading Room POCT-GLUCOSE [id number] 12:13:00 Test Item Value Reference Range Interpretation Comments POC-GLUCOSE METER 210 mg/dL 70-110 H : TESTED A T [facility] 6720 (BEAKER) (test code = [facility] Megan [facility], 1538) [id number]: Cloud Systems Architect/Techni alfonzo ID = [id number] for Margaret PEREZ HEMOGLOBIN [id number] 09:08:00 Test Item Value Reference Range Interpretation Comments HEMOGLOBIN A1C (BEAKER) (test code = 6.6 % 4.3-6.1 H 368) POCT-GLUCOSE [id number] 08:43:00 Test Item Value Reference Range Interpretation Comments POC-GLUCOSE METER 118 mg/dL 70-110 H : TESTED A T [facility] 6720 (BEAKER) (test code = [facility]r [facility], 1538) [address]: Cloud Systems Architect/Techni alfonzo ID = [id number] for Margaret PEREZ [id number] 07:31:00 Test Item Value Reference Range Interpretation Comments MAGNESIUM (BEAKER) 2.0 mg/dL 1.6-2.6 Specimen slightly (test code = 627) hemolyzed [id number] 05:38:00 Test Item Value Reference Range Interpretation Comments PHOSPHORUS (BEAKER) 4.1 mg/dL 2.3-4.7 Specimen slightly (test code = 604) hemolyzed BASIC METABOLIC [id number] 05:38:00 Test Item Value Reference Range Interpretation Comments SODIUM (BEAKER) 141 meq/L 136-145 (test code = 381) POTASSIUM (BEAKER) 3.6 meq/L 3.5-5.1 Specimen slightly (test code = 379) hemolyzed CHLORIDE (BEAKER) 108 meq/L 98-107 H (test code = 382) CO2 (BEAKER) (test 24 meq/L 22-29 code = 355) BLOOD UREA NITROGEN 30 mg/dL 7-21 H (BEAKER) (test code = 354) CREATININE (BEAKER) 1.13 mg/dL 0.57-1.25 Specimen slightly (test code = 358) hemolyzed GLUCOSE RANDOM 113 mg/dL 70-105 H (BEAKER) (test code = 652) CALCIUM (BEAKER) 9.1 mg/dL 8.4-10.2 (test code = 697) EGFR (BEAKER) (test 65 mL/min/1.73 ESTIMA NATALIA GFR IS code = 1092) sq m NOT ACCURATE CREATININE CLEARANCE IN PREDICTING GLOMERULAR FILTRATION RATE . ESTIMATED GFR I S NOT APPLICABLE FOR DIALYSIS PATIEN TS. LIPID [id number] 05:38:00 Test Item Value Reference Range Interpretation Comments TRIGLYCERIDES (BEAKER) 178 mg/dL Speci men slightly (test code = 540) hemolyzed CHOLESTEROL (BEAKER) 207 mg/dL Specime n slightly (test code = 631) hemolyzed HDL CHOLESTEROL (BEAKER) 36 mg/dL (test code = 976) LDL CHOLESTEROL 135 mg/dL CALCULATED (BEAKER) (test code = 633) Triglyceride Reference Range: Low Risk <150 Borderline 150-199 High Risk 200-499 Very High Risk >=500Cholesterol Reference Range: Low Risk <200 Borderline 200-239 High Risk >240HDL Cholesterol Reference Range: Low Risk >=60 High Risk <40LDL Cholesterol Reference Range: Optimal <100 Near Optimal 100-129 Borderline 130-159 High 160-189 Very High >=190Troponin [id number] 05:34:00 Test Item Value Reference Range Interpretation Comments Troponin I (test code = 0.01 ng/mL 0-0.03 51698-4) TODD (test code = TODD) Troponin I (TnI) levels must be interpreted in the context of the presenting symptoms and the clinical findings. Elevated TnI levels indicate myocardial damage, but are not specific for ischemic heart disease. Elevated TnI levels are seen in patients with other cardiac conditions (including myocarditis and congestive heart failure), and slight TnI elevations occur in patients with other conditions, including sepsis, renal failure, acidosis, acute neurological disease, and persistent tachyarrhythmia. Lab Interpretation (test Normal code = 73209-7) [facility] HospitalTROP[facility]IN [id number] 05:34:00 Test Item Value Reference Range Interpretation Comments TROPONIN I (BEAKER) (test code = 0.01 ng/mL 0.00-0.03 397) Troponin I (TnI) levels must be interpreted in the context of the presenting symptoms and the clinical findings. Elevated TnI levels indicate myocardial damage, but are not specific for ischemic heart disease. Elevated TnI levels are seen in patients with other cardiac conditions (including myocarditis and congestive heart failure), and slight TnI elevations occur in patients with other conditions, including sepsis, renal failure, acidosis, acute neurological disease, and persistent tachyarrhythmia.B-type Natriuretic Factor (BNP) 2019-09-05 05:25:00 Test Item Value Reference Range Interpretation Comments BNP (test code = 20680-7) 1193 pg/mL 0-100 H Lab Interpretation (test code = Abnormal 60319-1) [facility] Hospital[facility] NATRIURETIC FACTOR (BNP)2019-09-05 05:25:00 Test Item Value Reference Range Interpretation Comments B-TYPE NATRIURETIC PEPTIDE 1193 pg/mL 0-100 H (BEAKER) (test code = 700) [id number] 05:15:00 Test Item Value Reference Range Interpretation Comments PROTIME (BEAKER) (test code = 14.8 seconds 11.9-14.2 H 759) INR (BEAKER) (test code = 370) 1.2 <=5.9 PARTIAL THROMBOPLASTIN TIME 40.7 seconds 22.5-36.0 H (BEAKER) (test code = 760) Effective 03/06/2019: PT Reference Range ChangeNew: 11.9-14.2 Previous: 11.7- 14.7RECOMMENDED COUMADIN/WARFARIN INR THERAPY RANGESSTANDARD DOSE: 2.0-3.0 Includes: PROPHYLAXIS for venous thrombosis, systemic embolization; TREATMENT for venous thrombosis and/or pulmonary embolus.HIGH RISK: Target INR is2.5-3.5 for patients wiht mechanical heart valves.PROTHROMBIN TIME/[id number] 05:14:00 Test Item Value Reference Range Interpretation Comments PROTIME (BEAKER) (test code = 14.8 seconds 11.9-14.2 H 759) INR (BEAKER) (test code = 370) 1.2 <=5.9 Effective 03/06/2019: PT Reference Range ChangeNew: 11.9-14.2 Previous: 11.7- 14.7RECOMMENDED COUMADIN/WARFARIN INR THERAPY RANGESSTANDARD DOSE: 2.0-3.0 Includes: PROPHYLAXIS for venous thrombosis, systemic embolization; TREATMENT for venous thrombosis and/or pulmonary embolus.HIGH RISK: Target INR is2.5-3.5 for patients wiht mechanical heart valves.CBC W/PLT COUNT & AUTO [id number] 05:03:00 Test Item Value Reference Range Interpretation Comments WHITE BLOOD CELL COUNT (BEAKER) 5.7 K/ L 3.5-10.5 (test code = 775) RED BLOOD CELL COUNT (BEAKER) 5.32 M/ L 4.63-6.08 (test code = 761) HEMOGLOBIN (BEAKER) (test code = 15.8 GM/DL 13.7-17.5 410) HEMATOCRIT (BEAKER) (test code = 47.4 % 40.1-51.0 411) MEAN CORPUSCULAR VOLUME (BEAKER) 89.1 fL 79.0-92.2 (test code = 753) MEAN CORPUSCULAR HEMOGLOBIN 29.7 pg 25.7-32.2 (BEAKER) (test code = 751) MEAN CORPUSCULAR HEMOGLOBIN CONC 33.3 GM/DL 32.3-36.5 (BEAKER) (test code = 752) RED CELL DISTRIBUTION WIDTH 14.0 % 11.6-14.4 (BEAKER) (test code = 412) PLATELET COUNT (BEAKER) (test 168 K/CU MM 150-450 code = 756) MEAN PLATELET VOLUME (BEAKER) 11.8 fL 9.4-12.4 (test code = 754) NUCLEATED RED BLOOD CELLS 0 /100 WBC 0-0 (BEAKER) (test code = 413) NEUTROPHILS RELATIVE PERCENT 66 % (BEAKER) (test code = 429) LYMPHOCYTES RELATIVE PERCENT 19 % (BEAKER) (test code = 430) MONOCYTES RELATIVE PERCENT 11 % (BEAKER) (test code = 431) EOSINOPHILS RELATIVE PERCENT 4 % (BEAKER) (test code = 432) BASOPHILS RELATIVE PERCENT 1 % (BEAKER) (test code = 437) NEUTROPHILS ABSOLUTE COUNT 3.81 K/ L 1.78-5.38 (BEAKER) (test code = 670) LYMPHOCYTES ABSOLUTE COUNT 1.07 K/ L 1.32-3.57 L (BEAKER) (test code = 414) MONOCYTES ABSOLUTE COUNT (BEAKER) 0.61 K/ L 0.30-0.82 (test code = 415) EOSINOPHILS ABSOLUTE COUNT 0.20 K/ L 0.04-0.54 (BEAKER) (test code = 416) BASOPHILS ABSOLUTE COUNT (BEAKER) 0.04 K/ L 0.01-0.08 (test code = 417) IMMATURE GRANULOCYTES-RELATIVE 0 % 0-1 PERCENT (BEAKER) (test code = 2801) POCT-GLUCOSE [id number] 21:44:00 Test Item Value Reference Range Interpretation Comments POC-GLUCOSE METER 138 mg/dL 70-110 H : TESTED A T [facility] 6720 (BEAKER) (test code = [facility], 1538) [address]: Cloud Systems Architect/Techni alfonzo ID = [id number] for PH ION ARDON [id number] 21:03:00 Test Item Value Reference Range Interpretation Comments MAGNESIUM (BEAKER) 1.9 mg/dL 1.6-2.6 Specimen markedly (test code = 627) hemolyzed POCT-GLUCOSE [id number] 17:47:00 Test Item Value Reference Range Interpretation Comments POC-GLUCOSE METER 115 mg/dL 70-110 H : TESTED A T [facility] 6720 (BEAKER) (test code = [facility], 1538) [address]: Cloud Systems Architect/Techni alfonzo ID = [id number] for CO RTEZ, BAILEY 2D Echo W/Doppler(CW/PW/Color)2019-09-04 15:51:58Ejection FractionSLEH ECHO HEARTLAB MKCKESSON CPACSInterface, External Ris In - 09/04/2019 3:52 PM C STTransthoracic Echocardiography Report (TTE) Demographics Patient Name PRIYANKA VILLALOBOS Date ofStudy 09/04/2019 JOE Gender Male Visit Number [id number] Race Unknown Room Number 1130 Number Date of 1950 Referring Physician Bennie Riley MD Age 68 year(s) 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 [...] No prior exam available for comparison. Signature Electronically signedby Tiffany Greco MD(Interpreting physician) on 09/04/2019 03:51 PM Findings Technical Quality: Technically adequate exam. Left Ventricle The left ventricle is chamber size (by vol index) is severely enlarged (male - LVED vol >100ml/m2). Normal LV wall thickness. All of the LV segments are severely hypokinetic . Global LV systolic function severely reduced . LVEF by Ma's method of disk assessment is severely reduced (25-29%) . The LVEF was measured using Ma's bi-plane method of disk . LV endocardium is adequately visualized with IV ultrasound enhancing agent. Grade 3 diastolic dysfunction (marked elevated LA pressure). Left Atrium LA size is severely enlarged (>48 ml/m2) . Right Ventricle RV chamber size is mildly enlarged . Global RV systolic function is normal . Right Atrium RA cavity size is mildly enlarged . Atrial Septum IV saline contrast injection was negative for a PFO (patent foramen ovale) at rest and post Valsalva . Aortic Valve Mild AoV cusp thickening. A trace of aortic regurgitation. MitralValve Mild MV leaflet thickening. Mild mitral annular calcification. Mild mitral regurgitation. Tricuspid Valve Mild TV leaflet thickening. Estimated peak systolic PA pressure is 50-55 mmHg . Pulmonic ValveNormal PV structure and function. Mild pulmonary regurgitation. Aorta Aortic root size (SInus of Valsalva diameter) is normal . Proximal ascending aorta size is normal . Pericardium No significant pericardial effusion is visualized. IVC/SVC/PA/PV/Pleural Pulmonary vein flow is consistent with increased LAP . The estimated RA pressure by IVC dynamics 11-15mmHg . The inferior vena cava size is increased . [...] MV Peak A-Wave: 0.18 m/s E/A Ratio: 5.53 Peak Gradient: 4 mmHg Deceleration Time: 104.8 msec MV Leandro. Peak: Tissue Doppler E' Septal Velocity: 0.03 m/s E/E': 28.64 E' Lateral Velocity: 0.08 m/s Aortic Valve Peak Velocity: 1.12 m/s Mean Velocity: 0.77 m/s Peak Gradient: 5 mmHg Mean Gradient: 2.6 mmHg AV Area (continuity): 2.87 cm^2 AV VTI: 18.74 cm AV DVI: 0.89 LVOT Peak Velocity: 0.96 m/s Peak Gradient: 3.7 mmHg Mean Velocity: 0.61 m/s Mean Gradient: 1.85 mmHg LVOT Diameter: 2.03 cm LVOT VTI: 16.63 cm LVOT Area: 3.24 cm^2 LVOT SV:53.8 ml LVOT CO: 3.12 l/min LVOT CI: 1.71 l/min/m^2 Tricuspid Valve TR Velocity: 3.27 m/s TR Gradient:42.84 mmHgFrank R. Howard Memorial HospitalPOCT-GLUCOSE [id number] 15:14:00 Test Item Value Reference Range Interpretation Comments POC-GLUCOSE METER 126 mg/dL 70-110 H : TESTED A T [facility] 6720 ([facility]) (test code = [facility], 1538) [address]: Cloud Systems Architect/Techni alfonzo ID = [id number] for ME ROMEO, AMBER POCT-GLUCOSE [id number] 14:34:00 Test Item Value Reference Range Interpretation Comments POC-GLUCOSE METER 101 mg/dL 70-110 : TESTED A [facility] 6720 ([facility]) (test code = [facility], 1538) [address]: Cloud Systems Architect/Techni alfonzo ID = [id number] for CO RTEZ, BAILEY POCT-GLUCOSE [id number] 13:56:00 Test Item Value Reference Range Interpretation Comments POC-GLUCOSE METER 198 mg/dL 70-110 H : Notified RN/MD: (HARISH) (test code = TESTED AT [facility] 67[address] 1538) [facility], [address]: Cloud Systems Architect/Techni alfonzo ID = [id number] for KELSEY SHEETS HEMOGLOBIN [id number] 07:38:00 Test Item Value Reference Range Interpretation Comments HEMOGLOBIN A1C ([facility]) (test code = 6.6 % 4.3-6.1 H 368) Hepatic function [id number] 06:13:00 Test Item Value Reference Range Interpretation Comments Protein, Total (test code 6.8 6.0- 8.3 gm/dL = 2885-2) Albumin (test code = 3.8 g/dL 3.5-5 16358-2) Total Bilirubin (test code 1.7 mg/dL 0.2-1.2 H = 1974-2) Bilirubin, Direct (test 0.6 mg/dL 0.1-0.5 H code = 1967-7) Alkaline Phosphatase (test 84 U/L 40-150 code = 6768-6) AST (test code = 1920-8) 12 U/L 5-34 ALT (test code = 1742-6) 20 U/L 6-55 TODD (test code = TODD) Specimen slightly icteric Lab Interpretation (test Abnormal code = 26067-9) [facility] HospitalPHOSPHORUS2019-11-27 06:13:00 Test Item Value Reference Range Interpretation Comments PHOSPHORUS (BEAKER) (test code = 3.6 mg/dL 2.3-4.7 604) [id number] 06:13:00 Test Item Value Reference Range Interpretation Comments MAGNESIUM (BEAKER) (test code = 2.1 mg/dL 1.6-2.6 627) BASIC METABOLIC [id number] 06:13:00 Test Item Value Reference Range Interpretation Comments SODIUM (BEAKER) 140 meq/L 136-145 (test code = 381) POTASSIUM (BEAKER) 3.6 meq/L 3.5-5.1 (test code = 379) CHLORIDE (BEAKER) 107 meq/L 98-107 (test code = 382) CO2 (BEAKER) (test 24 meq/L 22-29 code = 355) BLOOD UREA NITROGEN 26 mg/dL 7-21 H (BEAKER) (test code = 354) CREATININE (BEAKER) 1.20 mg/dL 0.57-1.25 (test code = 358) GLUCOSE RANDOM 97 mg/dL 70-105 (BEAKER) (test code = 652) CALCIUM (BEAKER) 9.2 mg/dL 8.4-10.2 (test code = 697) EGFR (BEAKER) (test 60 mL/min/1.73 ESTIMA NATALIA GFR IS code = 1092) sq m NOT ACCURATE CREATININE CLEARANCE IN PREDICTING GLOMERULAR FILTRATION RATE . ESTIMATED GFR I S NOT APPLICABLE FOR DIALYSIS PATIEN TS. Specimen slightly ictericLIPID [id number] 06:13:00 Test Item Value Reference Range Interpretation Comments TRIGLYCERIDES (BEAKER) (test code = 201 mg/dL 540) CHOLESTEROL (BEAKER) (test code = 207 mg/dL 631) HDL CHOLESTEROL (BEAKER) (test code 29 mg/dL = 976) LDL CHOLESTEROL CALCULATED (BEAKER) 138 mg/dL (test code = 633) Triglyceride Reference Range: Low Risk <150 Borderline 150-199 High Risk 200-499 Very High Risk >=500Cholesterol Reference Range: Low Risk <200 Borderline 200-239 High Risk >240HDL Cholesterol Reference Range: Low Risk >=60 High Risk <40LDL Cholesterol Reference Range: Optimal <100 Near Optimal 100-129 Borderline 130-159 High 160-189 Very High >=190 Specimen slightly ictericHEPATIC FUNCTION [id number] 06:13:00 Test Item Value Reference Range Interpretation Comments TOTAL PROTEIN (BEAKER) (test code = 6.8 gm/dL 6.0-8.3 770) ALBUMIN (BEAKER) (test code = 1145) 3.8 g/dL 3.5-5.0 BILIRUBIN TOTAL (BEAKER) (test code 1.7 mg/dL 0.2-1.2 H = 377) BILIRUBIN DIRECT (BEAKER) (test 0.6 mg/dL 0.1-0.5 H code = 706) ALKALINE PHOSPHATASE (BEAKER) (test 84 U/L 40-150 code = 346) AST (SGOT) (BEAKER) (test code = 12 U/L 5-34 353) ALT (SGPT) (BEAKER) (test code = 20 U/L 6-55 347) Specimen slightly ictericPT/[id number] 05:48:00 Test Item Value Reference Range Interpretation Comments PROTIME (BEAKER) (test code = 15.2 seconds 11.9-14.2 H 759) INR (BEAKER) (test code = 370) 1.3 <=5.9 PARTIAL THROMBOPLASTIN TIME 37.8 seconds 22.5-36.0 H (BEAKER) (test code = 760) Effective 03/06/2019: PT Reference Range ChangeNew: 11.9-14.2 Previous: 11.7- 14.7RECOMMENDED COUMADIN/WARFARIN INR THERAPY RANGESSTANDARD DOSE: 2.0-3.0 Includes: PROPHYLAXIS for venous thrombosis, systemic embolization; TREATMENT for venous thrombosis and/or pulmonary embolus.HIGH RISK: Target INR is2.5-3.5 for patients wiht mechanical heart valves.PROTHROMBIN [id number] 05:47:00 Test Item Value Reference Range Interpretation Comments PROTIME (BEAKER) (test code = 15.2 seconds 11.9-14.2 H 759) INR (BEAKER) (test code = 370) 1.3 <=5.9 Effective 03/06/2019: PT Reference Range ChangeNew: 11.9-14.2 Previous: 11.7- 14.7RECOMMENDED COUMADIN/WARFARIN INR THERAPY RANGESSTANDARD DOSE: 2.0-3.0 Includes: PROPHYLAXIS for venous thrombosis, systemic embolization; TREATMENT for venous thrombosis and/or pulmonary embolus.HIGH RISK: Target INR is2.5-3.5 for patients wiht mechanical heart valves.TSH/Free T4 If [id number] 23:58:00 Test Item Value Reference Range Interpretation Comments TSH (test code = 83851-5) 1.36 0.35- 4.94 uIU/mL Lab Interpretation (test code = Normal 24056-0) [facility] HospitalTSH/FREE T4 IF [id number] 23:58:00 Test Item Value Reference Range Interpretation Comments THYROID STIMULATING HORMONE 1.36 uIU/mL 0.35-4.94 (BEAKER) (test code = 772) TROPONIN [id number] 23:20:00 Test Item Value Reference Range Interpretation Comments TROPONIN I (BEAKER) (test code = 0.02 ng/mL 0.00-0.03 397) Troponin I (TnI) levels must be interpreted in the context of the presenting symptoms and the clinical findings. Elevated TnI levels indicate myocardial damage, but are not specific for ischemic heart disease. Elevated TnI levels are seen in patients with other cardiac conditions (including myocarditis and congestive heart failure), and slight TnI elevations occur in patients with other conditions, including sepsis, renal failure, acidosis, acute neurological disease, and persistent tachyarrhythmia.B-TYPE NATRIURETIC FACTOR (BNP) 2019-09-03 23:17:00 Test Item Value Reference Range Interpretation Comments B-TYPE NATRIURETIC PEPTIDE 2036 pg/mL 0-100 H (BEAKER) (test code = 700) [id number] 23:14:00 Test Item Value Reference Range Interpretation Comments MAGNESIUM (BEAKER) (test code = 2.1 mg/dL 1.6-2.6 627) COMPREHENSIVE METABOLIC [id number] 23:14:00 Test Item Value Reference Range Interpretation Comments TOTAL PROTEIN 7.2 gm/dL 6.0-8.3 (BEAKER) (test code = 770) ALBUMIN (BEAKER) 4.0 g/dL 3.5-5.0 (test code = 1145) ALKALINE PHOSPHATASE 90 U/L 40-150 (BEAKER) (test code = 346) BILIRUBIN TOTAL 1.9 mg/dL 0.2-1.2 H (BEAKER) (test code = 377) SODIUM (BEAKER) (test 138 meq/L 136-145 code = 381) POTASSIUM (BEAKER) 4.1 meq/L 3.5-5.1 (test code = 379) CHLORIDE (BEAKER) 108 meq/L 98-107 H (test code = 382) CO2 (BEAKER) (test 20 meq/L 22-29 L code = 355) BLOOD UREA NITROGEN 26 mg/dL 7-21 H (BEAKER) (test code = 354) CREATININE (BEAKER) 1.29 mg/dL 0.57-1.25 H (test code = 358) GLUCOSE RANDOM 129 mg/dL 70-105 H (BEAKER) (test code = 652) CALCIUM (BEAKER) 9.1 mg/dL 8.4-10.2 (test code = 697) AST (SGOT) (BEAKER) 13 U/L 5-34 (test code = 353) ALT (SGPT) (BEAKER) 23 U/L 6-55 (test code = 347) EGFR (BEAKER) (test 56 mL/min/1.73 ESTIMA NATALIA GFR IS code = 1092) sq m NOT ACCURATE CREATININE CLEARANCE IN PREDICTING GLOMERULAR FILTRATION RATE . ESTIMATED GFR I S NOT APPLICABLE FOR DIALYSIS PATIEN TS. Specimen slightly ictericCBC W/PLT COUNT & AUTO [id number] 22:56:00 Test Item Value Reference Range Interpretation Comments WHITE BLOOD CELL COUNT (BEAKER) 7.3 K/ L 3.5-10.5 (test code = 775) RED BLOOD CELL COUNT (BEAKER) 5.31 M/ L 4.63-6.08 (test code = 761) HEMOGLOBIN (BEAKER) (test code = 15.8 GM/DL 13.7-17.5 410) HEMATOCRIT (BEAKER) (test code = 47.8 % 40.1-51.0 411) MEAN CORPUSCULAR VOLUME (BEAKER) 90.0 fL 79.0-92.2 (test code = 753) MEAN CORPUSCULAR HEMOGLOBIN 29.8 pg 25.7-32.2 (BEAKER) (test code = 751) MEAN CORPUSCULAR HEMOGLOBIN CONC 33.1 GM/DL 32.3-36.5 (BEAKER) (test code = 752) RED CELL DISTRIBUTION WIDTH 14.0 % 11.6-14.4 (BEAKER) (test code = 412) PLATELET COUNT (BEAKER) (test 167 K/CU MM 150-450 code = 756) MEAN PLATELET VOLUME (BEAKER) 11.6 fL 9.4-12.4 (test code = 754) NUCLEATED RED BLOOD CELLS 0 /100 WBC 0-0 (BEAKER) (test code = 413) NEUTROPHILS RELATIVE PERCENT 74 % (BEAKER) (test code = 429) LYMPHOCYTES RELATIVE PERCENT 15 % (BEAKER) (test code = 430) MONOCYTES RELATIVE PERCENT 9 % (BEAKER) (test code = 431) EOSINOPHILS RELATIVE PERCENT 1 % (BEAKER) (test code = 432) BASOPHILS RELATIVE PERCENT 1 % (BEAKER) (test code = 437) NEUTROPHILS ABSOLUTE COUNT 5.41 K/ L 1.78-5.38 H (BEAKER) (test code = 670) LYMPHOCYTES ABSOLUTE COUNT 1.08 K/ L 1.32-3.57 L (BEAKER) (test code = 414) MONOCYTES ABSOLUTE COUNT (BEAKER) 0.63 K/ L 0.30-0.82 (test code = 415) EOSINOPHILS ABSOLUTE COUNT 0.10 K/ L 0.04-0.54 (BEAKER) (test code = 416) BASOPHILS ABSOLUTE COUNT (BEAKER) 0.05 K/ L 0.01-0.08 (test code = 417) IMMATURE GRANULOCYTES-RELATIVE 0 % 0-1 PERCENT (BEAKER) (test code = 8121)
[2020-06-01 10:28] LABS: Absolute Lymphocytes (CBC) 0.6 K/uL (0.7-4.9); Basophils % 0.9 % (0-1.3); Hematocrit 40.1 % (39.6-49.0); Lymphocytes % 11.1 % (15.3-44.8); MPV 10.3 fL (7.6-11.3); RBC Red Blood Cell Count 4.62 M/uL (4.33-5.43)
[2020-06-01] MEDS ORDERED: FAMOTIDINE 20 MG/2 ML VIAL IV ONE (10:30)
[2020-06-01] MEDS ORDERED: NA CHLORIDE 0.9% 500 ML ONE (10:30)
[2020-06-01 10:42] LABS: Albumin 3.8 g/dL (3.4-5.0); Bilirubin Direct 0.3 mg/dL (0-0.2); Bilirubin Total 1.1 mg/dL (0.2-1.0); Potassium 3.8 mmol/L (3.5-5.1); Protein, Total 7.8 g/dL (6.4-8.2)
--- NOTE | 2020-06-01 11:21 | RAD REPORT ---
EXAM DESCRIPTION: CTAbdomen Pelvis W Contrast - 06/01/2020 10:58 am CLINICAL HISTORY: Abdominal pain. GI BLEED COMPARISON: No comparisons TECHNIQUE: Biphasic CT imaging of the abdomen and pelvis was performed with 100 ml non-ionic IV cont rast. All CT scans are performed using dose optimization technique as appropriate and may include automated exposure control or mA/KV adjustment according to patient size. FINDINGS: Emphysematous changes are present in the lung bases.Small hiatal hernia. The liver, spleen, pancreas, adrenal glands and kidneys are within normal limits. No bowel obstruction, free air, free fluid or abscess. Prominent descending and sigmoid diverticulosi s coli without diverticulitis seen. The appendix is normal. No evidence of significant lymphadenopat hy. Moderate lumbosacral degenerative changes. Fat containing inguinal hernias are present bilaterally, g reater on the right. IMPRESSION: Prominent descending and sigmoid diverticulosis coli without diverticulitis.
--- NOTE | 2020-06-01 11:54 | EDPHYS ---
Physician Documentation [facility] Name: Easton Kelly Age: 69 yrs Sex: Male : 1950 Arrival Date: 06/01/2020 Time: 09:28 Bed 7 Private MD: David Maier R ED Physician Marlon Lees HPI: 06/01 10:03 This 69 yrs old Male presents to ER via Ambulatory with complaints of Bloody kdr Stools. 10:03 The patient presents to the emergency department with rectal bleeding, a small amount, kdr a moderate amount, bright red blood with bowel movement, melena, in toilet bowl. Onset: The symptoms/episode began/occurred gradually, 2 day(s) ago. Abdominal pain: none is appreciated. Modifying factors: The symptoms are alleviated by nothing, the symptoms are aggravated by pressure, Having a BM. Associated signs and symptoms: Pertinent positives: diarrhea. 10:03 Severity of symptoms: At their worst the symptoms were mild in the emergency department kdr the symptoms are unchanged. The patient has not experienced similar symptoms in the past. The patient has not recently seen a physician. Initially began has dark and then most recently it has been bright red diarrhea. Historical: - Allergies: 09:39 No Known Allergies; hb - Home Meds: 09:39 tamsulosin 0.4 mg oral cp24 1 cap once daily [Active]; metoprolol tartrate 50 mg Oral hb tab 1 tab 2 times per day [Active]; clopidogrel 75 mg oral tab 1 tab once daily [Active]; glimepiride 1 mg Oral tab [Active]; doxazosin 2 mg oral tab 1 tab once daily [Active]; - PMHx: 09:39 Hypertension; hb - PSHx: 09:39 None; hb - Immunization history:: Adult Immunizations up to date. - Social history:: Smoking status: Patient denies any tobacco usage or history of. ROS: 10:03 Constitutional: Negative for fever, chills, and weight loss, Eyes: Negative for injury, kdr pain, redness, and discharge, ENT: Negative for injury, pain, and discharge, Neck: Negative for injury, pain, and swelling, Cardiovascular: Negative for chest pain, palpitations, and edema, Respiratory: Negative for shortness of breath, cough, wheezing, and pleuritic chest pain, Back: Negative for injury and pain, : Negative for injury, bleeding, discharge, and swelling, MS/Extremity: Negative for injury and deformity, Skin: Negative for injury, rash, and discoloration, Neuro: Negative for headache, weakness, numbness, tingling, and seizure activity. Psych: Negative for depression, anxiety, suicide ideation, homicidal ideation, and hallucinations, Allergy/Immunology: Negative for hives, rash, and allergies, Endocrine: Negative for neck swelling, polydipsia, polyuria, polyphagia, and marked weight changes, Hematologic/Lymphatic: Negative for swollen nodes, abnormal bleeding, and unusual bruising. 10:03 Abdomen/GI: Positive for diarrhea, rectal bleeding. Exam: 10:03 Constitutional: This is a well developed, well nourished patient who is awake, alert, kdr and in no acute distress. Head/Face: Normocephalic, atraumatic. Eyes: Pupils equal round and reactive to light, extra-ocular motions intact. Lids and lashes normal. Conjunctiva and sclera are non-icteric and not injected. Cornea within normal limits. Periorbital areas with no swelling, redness, or edema. Neck: Trachea midline, no thyromegaly or masses palpated, and no cervical lymphadenopathy. Supple, full range of motion without nuchal rigidity, or vertebral point tenderness. No Meningismus. Chest/axilla: Normal chest wall appearance and motion. Nontender with no deformity. No lesions are appreciated. Cardiovascular: Regular rate and rhythm with a normal S1 and S2. No gallops, murmurs, or rubs. Normal PMI, no JVD. No pulse deficits. Respiratory: Lungs have equal breath sounds bilaterally, clear to auscultation and percussion. No rales, rhonchi or wheezes noted. No increased work of breathing, no retractions or nasal flaring. Back: No spinal tenderness. No costovertebral tenderness. Full range of motion. Skin: Warm, dry with normal turgor. Normal color with no rashes, no lesions, and no evidence of cellulitis. MS/ Extremity: Pulses equal, no cyanosis. Neurovascular intact. Full, normal range of motion. Neuro: Awake and alert, GCS 15, oriented to person, place, time, and situation. Cranial nerves II-XII grossly intact. Motor strength 5/5 in all extremities. Sensory grossly intact. Cerebellar exam normal. Normal gait. Psych: Awake, alert, with orientation to person, place and time. Behavior, mood, and affect are within normal limits. 10:03 Abdomen/GI: Inspection: abdomen appears normal, Bowel sounds: active, all quadrants, diminished, Palpation: soft, nontender, Rectal exam: Prostate: normal, rectal tone normal, Stool: guaiac positive, black, hemorrhoid(s), external, without bleeding, without thrombosis, without pain. Vital Signs: 09:35 BP 143 / 74; Pulse 83; Resp 16; Temp 98.2(O); Pulse Ox 97% on R/A; Weight 79.83 kg; hb Height 5 ft. 6 in. (167.64 cm); Pain 0/10; 10:30 BP 127 / 82; Pulse 68; Resp 16; Pulse Ox 98% on R/A; ph 11:41 BP 128 / 78; Pulse 65; Resp 18; Pulse Ox 99% on R/A; ph 09:35 Body Mass Index 28.41 (79.83 kg, 167.64 cm) hb MDM: 11:54 Patient medically screened. kdr 13:35 Data reviewed: vital signs, nurses notes, lab test result(s), radiologic studies. kdr Counseling: I had a detailed discussion with the patient and/or guardian regarding: the historical points, exam findings, and any diagnostic results supporting the discharge/admit diagnosis, lab results, radiology results, the need for outpatient follow up. 06/01 10:09 Order name: Basic Metabolic Panel; Complete Time: 11:17 kdr 06/01 10:09 Order name: CBC with Diff; Complete Time: 10:35 kdr 06/01 10:09 Order name: Hepatic Function; Complete Time: 11:17 kdr 06/01 10:09 Order name: Lipase; Complete Time: 11:17 kdr 06/01 10:09 Order name: CT Abd/Pelvis - IV Contrast Only; Complete Time: 11:48 kdr 06/01 10:09 Order name: IV Saline Lock; Complete Time: 10: kdr 06/01 10:09 Order name: Labs collected and sent; Complete Time: 10:17 kdr Administered Medications: 10:30 Drug: NS 0.9% 500 ml Route: IV; Rate: bolus; Site: right antecubital; ph 11:42 Follow up: Response: No adverse reaction; IV Status: Completed infusion; IV Intake: ph 500ml 10:31 Drug: Pepcid 20 mg Route: IVP; Site: right antecubital; ph 11:42 Follow up: Response: No adverse reaction ph Disposition: 06/01/20 11:54 Discharged to Home. Impression: GI Bleed/Rectal bleeding. - Condition is Stable. - Discharge Instructions: Rectal Bleeding, [id number], Diverticulosis, Diverticulitis, [id number]. - Prescriptions for Cipro 500 mg Oral Tablet - take 1 tablet by ORAL route every 12 hours for 10 days; 20 tablet. Flagyl 500 mg Oral Tablet - take 1 tablet by ORAL route every 6 hours for 10 days; 40 tablet. Pepcid 20 mg Oral Tablet - take 1 tablet by ORAL route every 12 hours for 10 days; 20 tablet. - Medication Reconciliation Form, Thank You Letter, Antibiotic Education form. - Follow up: David Maier MD; When: 2 - 3 days; Reason: If symptoms return, Further diagnostic work-up, Recheck today's complaints, Continuance of care, Re-evaluation by your physician. - Problem is new. - Symptoms have improved. Signatures: Dispatcher [employer] EDMS Marlon Lees MD MD [facility] Maria Mendoza RN RN Hannah Eden RN RN Corrections: (The following items were deleted from the chart) 12:24 11:54 06/01/2020 11:54 Discharged to Home. Impression: GI Bleed/Rectal bleeding. ph Condition is Stable. Forms are Medication Reconciliation Form, Thank You Letter, Antibiotic Education, Prescription Opioid Use. Follow up: David Maier; When: 2 - 3 days; Reason: If symptoms return, Further diagnostic work-up, Recheck today's complaints, Continuance of care, Re-evaluation by your physician. Problem is new. Symptoms have improved. kdr
--- NOTE | 2020-06-01 11:54 | ER ---
Nurse's Notes [facility] Name: Easton Kelly Age: 69 yrs Sex: Male : 1950 Arrival Date: 06/01/2020 Time: 09:28 Bed 7 Private MD: David Maier R Diagnosis: GI Bleed/Rectal bleeding Presentation: 06/01 09:35 Chief complaint: Dark red bloody diarrhea x 2 days. Denies pain/vomiting. Coronavirus hb screen: At this time, the client does not indicate any symptoms associated with coronavirus-19. Ebola Screen: No symptoms or risks identified at this time. Initial Sepsis Screen: Does the patient meet any 2 criteria? No. Patient's initial sepsis screen is negative. Does the patient have a suspected source of infection? No. Patient's initial sepsis screen is negative. Risk Assessment: Do you want to hurt yourself or someone else? Patient reports no desire to harm self or others. Onset of symptoms was May 31, 2020. 09:35 Method Of Arrival: Ambulatory hb 09:35 Acuity: NENA 3 hb Historical: - Allergies: 09:39 No Known Allergies; hb - Home Meds: 09:39 tamsulosin 0.4 mg oral cp24 1 cap once daily [Active]; metoprolol tartrate 50 mg Oral hb tab 1 tab 2 times per day [Active]; clopidogrel 75 mg oral tab 1 tab once daily [Active]; glimepiride 1 mg Oral tab [Active]; doxazosin 2 mg oral tab 1 tab once daily [Active]; - PMHx: 09:39 Hypertension; hb - PSHx: 09:39 None; hb - Immunization history:: Adult Immunizations up to date. - Social history:: Smoking status: Patient denies any tobacco usage or history of. Screenin:40 Abuse screen: Denies threats or abuse. Denies injuries from another. Nutritional ph screening: No deficits noted. Tuberculosis screening: No symptoms or risk factors identified. Fall Risk None identified. Assessment: 09:55 General: Appears in no apparent distress. comfortable, well groomed, Behavior is calm, ph cooperative, appropriate for age, Denies fever, feeling ill. Pain: Denies pain. Neuro: Level of Consciousness is awake, alert, obeys commands, Oriented to person, place, time, situation. Cardiovascular: Denies chest pain, lightheadedness, nausea, shortness of breath. Respiratory: Airway is patent Respiratory effort is even, unlabored, Respiratory pattern is regular, symmetrical. GI: Abdomen is round non-distended, Reports rectal bleeding, bloody stool, Patient currently denies abdominal pain, nausea, vomiting. : No signs and/or symptoms were reported regarding the genitourinary system. Derm: Skin is intact, is healthy with good turgor, Skin is pink, warm \T\ dry. Musculoskeletal: Circulation, motion, and sensation intact. Range of motion: intact in all extremities. 11:41 Reassessment: Patient appears in no apparent distress at this time. Patient and/or ph family updated on plan of care and expected duration. Pain level reassessed. Patient is alert, oriented x 3, equal unlabored respirations, skin warm/dry/pink. Vital Signs: 09:35 BP 143 / 74; Pulse 83; Resp 16; Temp 98.2(O); Pulse Ox 97% on R/A; Weight 79.83 kg; hb Height 5 ft. 6 in. (167.64 cm); Pain 0/10; 10:30 BP 127 / 82; Pulse 68; Resp 16; Pulse Ox 98% on R/A; ph 11:41 BP 128 / 78; Pulse 65; Resp 18; Pulse Ox 99% on R/A; ph 09:35 Body Mass Index 28.41 (79.83 kg, 167.64 cm) hb ED Course: 09:28 Patient arrived in ED. mr 09:28 David Maier MD is Private Physician. mr 09:37 Triage completed. hb 09:39 Arm band placed on. hb 09:40 Patient has correct armband on for positive identification. Bed in low position. Call ph light in reach. Side rails up X 1. Pulse ox on. NIBP on. Door closed. Noise minimized. Warm blanket given. 09:42 Marlon Lees MD is Attending Physician. kdr 09:55 Maria Mendoza, REVA is Primary Nurse. ph 09:55 Served as a application packaging consultant during rectal exam. ph 10:15 Initial lab(s) drawn, by me, sent to lab. Inserted saline lock: 20 gauge in right ph antecubital area, using aseptic technique. Blood collected. 10:58 CT Abd/Pelvis - IV Contrast Only In Process Unspecified. EDMS 11:53 David Maier MD is Referral Physician. kdr 12:20 IV discontinued, intact, bleeding controlled, No redness/swelling at site. Pressure ph dressing applied. Administered Medications: 10:30 Drug: NS 0.9% 500 ml Route: IV; Rate: bolus; Site: right antecubital; ph 11:42 Follow up: Response: No adverse reaction; IV Status: Completed infusion; IV Intake: ph 500ml 10:31 Drug: Pepcid 20 mg Route: IVP; Site: right antecubital; ph 11:42 Follow up: Response: No adverse reaction ph Intake: 11:42 IV: 500ml; Total: 500ml. ph Outcome: 11:54 Discharge ordered by MD. kdr 12:24 Patient left the ED. ph 12:24 Discharged to home ambulatory. ph 12:24 Condition: good 12:24 Discharge instructions given to patient, Instructed on discharge instructions, follow up and referral plans. medication usage, Demonstrated understanding of instructions, follow-up care, medications, Prescriptions given X 3. Signatures: Dispatcher [employer] EDMS Marlon Lees MD MD kdr Elva Phelps mr Maria Mendoza RN RN Hannah Eden RN RN
== END 2020-06-01 12:24 | disposition home or self-care (01) ==
LOC: ER 09:25
DX: K92.1 Melena (principal); I10 Essential (primary) hypertension
CPT/HCPCS: 85025; 80048; 36415; 80076; 83690; 74177; Q9967; J7040; 96361; 96374; 99284